=== PATIENT | female | born 1960 | race Caucasian/White ===

== ENCOUNTER → 2020-02-17 12:37 | Outpatient (BNVA) | payer OTHER, SELFPAY | PROVIDERS: PCP Internal Medicine; Referring Provider Internal Medicine; Visit Provider Internal Medicine Endocrinology, Diabetes & Metabolism | DX: Z13.89 Encounter for screening for other disorder (principal) | CPT/HCPCS: 99214 ==

== ENCOUNTER 2020-03-07 12:52 | Outpatient (REF) | payer OTHER, SELFPAY ==
--- NOTE | 2020-03-07 | MM_ITS ---
EXAMINATION: MM SCREENING DIGITAL BREAST TOMOSYNTHESIS, BILATERAL CLINICAL INFORMATION: Screening. Asymptomatic. The lifetime risk of breast cancer based on the Tyrer-Cuzick Model is 6%. COMPARISON: Mammography: 11/17/2018, 05/12/2018, 04/24/2018; outside exam 05/11/2015 ([facility]) TECHNIQUE: Digital breast tomosynthesis is performed in both the craniocaudal and mediolateral oblique views along with computer-aided detection (CAD). Synthesized 2D images are generated from the tomosynthesis. FINDINGS: There are scattered areas of fibroglandular density (ACR BI-RADS breast composition Category b). Parenchymal pattern is similar to prior studies. There is no developing density or interval mass or architectural abnormality. No abnormal calcifications. The axilla and skin contours are unremarkable. Small nodular asymmetry anterior inferior left breast on MLO view is stable. Nodular asymmetry posterior right breast and also mid upper outer right breast are stable. No significant changes from prior studies. MM/MM tomosynthesis screening BI IMPRESSION: No significant changes from prior studies. ASSESSMENT: BI-RADS 2: Benign RECOMMENDATION: Routine annual mammography screening. This patient's information was entered into a reminder system with a target due date for their next mammogram.
== END 2020-03-07 12:53 | disposition home or self-care (01) ==
LOC: HO.MAMMO 12:52
PROVIDERS: Visit Provider Internal Medicine
DX: Z12.31 Encounter for screening mammogram for malignant neoplasm of breast (principal)
CPT/HCPCS: 77063; 77067

== ENCOUNTER → 2020-08-17 08:16 | Outpatient (BNVA) | payer OTHER, SELFPAY | PROVIDERS: PCP Internal Medicine; Visit Provider Internal Medicine Endocrinology, Diabetes & Metabolism | DX: Z13.89 Encounter for screening for other disorder (principal) | CPT/HCPCS: Q3014 ==

== ENCOUNTER 2020-09-05 12:04 | Outpatient (REF) | payer OTHER, SELFPAY ==
[2020-09-05 14:20] LABS: Estimated Average Glucose 117 mg/dL; Hemoglobin A1c % 5.7 %
[2020-09-05 14:47] LABS: Alanine Aminotransferase 17 U/L (0-31); Albumin Level 4.3 g/dL (3.5-5.0); Alkaline Phosphatase 44 U/L (39-117); Anion Gap 15 (12-20); Aspartate Amino Transferase 14 U/L (5-31); Bilirubin Total 0.4 mg/dL (0.0-1.0); Blood Urea Nitrogen 17 mg/dL (9-16); Calcium 9.8 mg/dL (8.4-10.2); Carbon Dioxide 24 mmol/L (22-29); Chloride 104 mmol/L (96-108); Cholesterol 114 mg/dL; Estimated Glomerular Filt Rate > 60; Glucose Fasting 113 mg/dL (60-99); HDL Cholesterol 42 mg/dL; LDL Cholesterol Calculated 58 mg/dl; Potassium 4.9 mmol/L (3.3-5.1); Sodium 138 mmol/L (135-145); Total Protein 6.7 g/dL (6.5-8.0); Triglycerides 73 mg/dL
[2020-09-05 14:58] LABS: Creatinine Urine 41.74 mg/dL; Microalbumin Urine < 5.0 mg/L
[2020-09-05 15:00] LABS: Free T4 (Free Thyroxine) 0.95 ng/dL (0.71-1.85); Thyroid Stimulating Hormone 2.35 uIU/mL (0.32-4.0)
[2020-09-05 15:06] LABS: Vitamin B12 366 pg/mL (200-900)
[2020-09-06 08:07] LABS: LDL Cholesterol Direct 52 mg/dL (<100)
== END 2020-09-05 12:05 | disposition home or self-care (01) ==
LOC: HO.10HDL 12:04
PROVIDERS: Visit Provider Internal Medicine Endocrinology, Diabetes & Metabolism
DX: E11.9 Type 2 diabetes mellitus without complications (principal)
CPT/HCPCS: 36415; 80053; 80061; 82043; 82607; 83036; 83721; 84439; 84443

== ENCOUNTER → 2020-12-07 09:31 | Outpatient (BNVA) | payer OTHER, SELFPAY | PROVIDERS: PCP Internal Medicine; Visit Provider Advanced Practice Midwife ==

== ENCOUNTER 2021-01-25 10:15 | Outpatient (REF) | payer OTHER, SELFPAY ==
[2021-01-25 14:26] LABS: Estimated Average Glucose 117 mg/dL; Hemoglobin A1c % 5.7 %
[2021-01-25 14:36] LABS: Alanine Aminotransferase 24 U/L (0-31); Albumin Level 4.2 g/dL (3.5-5.0); Alkaline Phosphatase 42 U/L (39-117); Anion Gap 16 (12-20); Aspartate Amino Transferase 16 U/L (5-31); Bilirubin Total 0.2 mg/dL (0.0-1.0); Blood Urea Nitrogen 15 mg/dL (9-16); Calcium 9.8 mg/dL (8.4-10.2); Carbon Dioxide 24 mmol/L (22-29); Chloride 105 mmol/L (96-108); Cholesterol 119 mg/dL; Estimated Glomerular Filt Rate > 60; Glucose Fasting 137 mg/dL (60-99); HDL Cholesterol 40 mg/dL; LDL Cholesterol Calculated 59 mg/dl; Potassium 4.9 mmol/L (3.3-5.1); Sodium 140 mmol/L (135-145); Total Protein 6.7 g/dL (6.5-8.0); Triglycerides 100 mg/dL
[2021-01-25 14:36] LABS: Creatinine Urine 72.44 mg/dL; Microalbum/Creatinine Ratio Ur 6.9 ug/mg cr
[2021-01-25 14:47] LABS: Free T4 (Free Thyroxine) 0.93 ng/dL (0.71-1.85); Thyroid Stimulating Hormone 2.77 uIU/mL (0.32-4.0)
[2021-01-25 14:57] LABS: Vitamin B12 352 pg/mL (200-900)
[2021-01-26 23:17] LABS: LDL Cholesterol Direct 66 mg/dL (<100)
== END 2021-01-25 10:16 | disposition home or self-care (01) ==
LOC: HO.10HDL 10:15
PROVIDERS: Visit Provider Internal Medicine Endocrinology, Diabetes & Metabolism
DX: E11.9 Type 2 diabetes mellitus without complications (principal)
CPT/HCPCS: 36415; 80053; 80061; 82043; 82607; 83036; 83721; 84439; 84443

== ENCOUNTER 2021-03-08 15:39 | Outpatient (REF) | payer OTHER, SELFPAY ==
--- NOTE | ~2021-03-08 | XR_ITS ---
EXAMINATION: XR LUMBOSACRAL SPINE CLINICAL INFORMATION: Dorsalgia. COMPARISON: Lumbar spine done on 01/30/2013. TECHNIQUE: Three views of the lumbosacral spine. FINDINGS: There are 5 nonrib-bearing lumbar vertebrae present. The anterior part of the L1 vertebral body shows slight decrease in height as compared to prior study dated 01/30/2013, consistent with subtle compression deformity, of indeterminate etiology and chronicity. The remainder of the lumbar vertebrae appear normal in height. The alignment is intact. Intervertebral disc heights are relatively well-maintained except for slight the right at T12-L1 and moderate decreased height at L5-S1. The posterior appendages are intact. The paraspinal soft tissues are unremarkable. XR/XR lumbar spine 2-3V IMPRESSION: 1. Subtle loss of height of the anterior part of L1 vertebral body, new since 01/30/2013, indeterminate etiology and chronicity. 2. No other significant interval change.
== END 2021-03-08 15:40 | disposition home or self-care (01) ==
LOC: HO.XRAY 15:39
PROVIDERS: PCP Internal Medicine; Visit Provider Nurse Practitioner Family
DX: M54.9 Dorsalgia, unspecified (principal)
CPT/HCPCS: 72100

== ENCOUNTER 2021-03-15 11:19 | Outpatient (REF) | payer OTHER, SELFPAY ==
--- NOTE | ~2021-03-15 | MM_ITS ---
EXAMINATION: MM SCREENING DIGITAL BREAST TOMOSYNTHESIS, BILATERAL CLINICAL INFORMATION: Screening. Asymptomatic. The lifetime risk of breast cancer based on the Tyrer-Cuzick Model is 5%. COMPARISON: Mammography: 03/07/2020, 11/17/2018, 05/12/2018, 04/24/2018 TECHNIQUE: Digital breast tomosynthesis is performed in both the craniocaudal and mediolateral oblique views along with computer-aided detection (CAD). Synthesized 2D images are generated from the tomosynthesis. FINDINGS: There are scattered areas of fibroglandular density (ACR BI-RADS breast composition Category b). There are scattered bilateral stable asymmetries. Nodular asymmetry posterior 12:30 o'clock right breast is stable. There is no significant mass or architectural abnormality or developing density. No interval abnormal calcifications. The skin contours and axilla are unremarkable. No significant changes. MM/MM tomosynthesis screening BI IMPRESSION: No significant changes from prior studies. ASSESSMENT: BI-RADS 1: Negative RECOMMENDATION: Routine annual mammography screening. This patient's information was entered into a reminder system with a target due date for their next mammogram.
== END 2021-03-15 11:20 | disposition home or self-care (01) ==
LOC: HO.MAMMO 11:19
PROVIDERS: Visit Provider Internal Medicine
DX: Z12.31 Encounter for screening mammogram for malignant neoplasm of breast (principal)
CPT/HCPCS: 77063; 77067

== ENCOUNTER 2021-04-05 13:55 | Outpatient (REF) | payer OTHER, SELFPAY ==
--- NOTE | ~2021-04-05 | MM_ITS ---
EXAMINATION: BONE DENSITOMETRY CLINICAL INDICATION: Encounter for screening for osteoporosis. COMPARISON: This is the patient's baseline examination. TECHNIQUE: Using a CyActive DXA System (software version: 13.1) manufactured by [employer], dual-energy x-ray absorptiometry was performed of the lumbar spine and left hip. The images are of good technical quality. Summary results are attached. FINDINGS: AP SPINE L1-L4: BMD 0.936 g/cm2, Z-score -1.3, T-score -2.0, osteopenia. LEFT FEMUR, NECK: BMD 0.757 g/cm2, Z-score -1.1, T-score -2.0, osteopenia. LEFT FEMUR, TOTAL: BMD 0.852 g/cm2, Z-score -0.7, T-score -1.2, osteopenia. IDENTIFIED RISK FACTORS: Low calcium intake, secondary osteoporosis, history of fracture (adult), anticonvulsants, menopause. HISTORY OF FRACTURE: Spine. MEDICATIONS: Vitamin D. MM/XR DEXA axial skeleton IMPRESSION: 1. DIAGNOSIS: Osteopenia based on the lowest T-score value of -2.0 in the femoral neck and lumbar spine applying World Health Organization criteria. 2. 10-YEAR FRACTURE RISK PREDICTION, FRAX: Major osteoporotic fracture (clinical spine, forearm, hip or shoulder) 16.5%. Hip fracture 2.3%. 3. Treatment Recommendations: NOF guidelines recommend consideration for treatment in postmenopausal women and men age 50 and older presenting with the following: -A hip or vertebral (clinical or morphometric) fracture. -T-score less than or equal to -2.5 at the femoral neck or spine after appropriate evaluation to exclude secondary causes. -Low bone mass at the hip or spine and a 10-year fracture probability by FRAX of greater than or equal to 3% for hip fracture or greater than or equal to 20% for major osteoporotic fracture based on the [place] adapted WHO algorithm. 4. Other Recommendations: All treatment decisions require clinical judgment and consideration of individual patient factors, including patient preferences, comorbidities, previous drug use, risk factors not captured in the FRAX model (e.g. frailty, falls, vitamin D deficiency, increased bone turnover, interval significant decline in bone density) and possible under or overestimation of fracture risk by FRAX. Additional medical evaluation for secondary cause of low bone mineral density may be appropriate. FUTURE SCAN RECOMMENDATION: People with diagnosed cases of osteoporosis or at high risk for fracture should have regular bone mineral density tests. For patients eligible for Medicare, routine testing is allowed once every 2 years. The testing frequency can be increased to one year for patients who have rapidly progressing disease, those who are receiving or discontinuing medical therapy to restore bone mass, or have additional risk factors.
== END 2021-04-05 13:56 | disposition home or self-care (01) ==
LOC: HO.MAMMO 13:55
PROVIDERS: PCP Internal Medicine; Visit Provider Nurse Practitioner Family
DX: Z13.820 Encounter for screening for osteoporosis (principal); E83.51 Hypocalcemia; Z78.0 Asymptomatic menopausal state; Z79.899 Other long term (current) drug therapy
CPT/HCPCS: 77080

== ENCOUNTER → 2021-06-16 09:17 | Outpatient (BNVA) | payer OTHER, SELFPAY | PROVIDERS: PCP Internal Medicine; Visit Provider Internal Medicine Endocrinology, Diabetes & Metabolism | DX: E11.9 Type 2 diabetes mellitus without complications (principal); Z79.4 Long term (current) use of insulin | CPT/HCPCS: 82947; 83036; 99212 ==

== ENCOUNTER → 2021-07-07 07:54 | Outpatient (BNVA) | payer OTHER, SELFPAY | PROVIDERS: PCP Internal Medicine; Visit Provider Registered Nurse Diabetes Educator | DX: E11.42 Type 2 diabetes mellitus with diabetic polyneuropathy (principal); Z71.89 Other specified counseling | CPT/HCPCS: 99211 ==

== ENCOUNTER → 2021-07-26 08:53 | Outpatient (BNVA) | payer OTHER, SELFPAY | PROVIDERS: PCP Internal Medicine; Visit Provider Registered Nurse Diabetes Educator | DX: E11.42 Type 2 diabetes mellitus with diabetic polyneuropathy (principal) | CPT/HCPCS: 99211 ==

== ENCOUNTER → 2021-09-15 09:59 | Outpatient (BNVA) | payer OTHER, SELFPAY | PROVIDERS: PCP Internal Medicine; Visit Provider Internal Medicine Endocrinology, Diabetes & Metabolism | DX: E11.9 Type 2 diabetes mellitus without complications (principal); Z79.4 Long term (current) use of insulin; Z79.84 Long term (current) use of oral hypoglycemic drugs | CPT/HCPCS: 82947; 83036; 99212 ==

== ENCOUNTER → 2022-03-16 09:50 | Outpatient (BNVA) | payer OTHER, SELFPAY | PROVIDERS: PCP Internal Medicine; Visit Provider Internal Medicine Endocrinology, Diabetes & Metabolism | DX: E11.9 Type 2 diabetes mellitus without complications (principal); Z79.4 Long term (current) use of insulin | CPT/HCPCS: 82947; 99212 ==

== ENCOUNTER 2022-03-21 11:35 | Outpatient (REF) | payer OTHER, SELFPAY ==
--- NOTE | ~2022-03-21 | MM_ITS ---
EXAMINATION: MM SCREENING DIGITAL BREAST TOMOSYNTHESIS, BILATERAL CLINICAL INFORMATION: Screening. Asymptomatic. Family history premenopausal breast cancer, daughter. The lifetime risk of breast cancer based on the Tyrer-Cuzick Model is 16%. COMPARISON: Mammography: 03/15/2021, 03/07/2020, 11/17/2018, 05/12/2018 TECHNIQUE: Digital breast tomosynthesis is performed in both the craniocaudal and mediolateral oblique views along with computer-aided detection (CAD). Synthesized 2D images are generated from the tomosynthesis. FINDINGS: There are scattered areas of fibroglandular density (ACR BI-RADS breast composition Category b). Right CC view has 0.5 cm asymmetric density mid outer breast 5.5 cm from nipple. No definite correlate on MLO view. Patient will be recalled for additional views. The remainder of the breasts are similar to prior studies. Again, there is stable nodularity posterior right breast just medial to midline there are no abnormal calcifications. The axilla and skin contours are unremarkable. MM/MM tomosynthesis screening BI IMPRESSION: Right: -Asymmetric density mid outer right breast on CC view, possibly summation artifact. Left: -No mammographic evidence of malignancy. ASSESSMENT: BI-RADS 0: Incomplete - Need Additional Imaging Evaluation RECOMMENDATION: 1. Additional views of the right breast (spot CC, rolled CC x2). 2. Targeted ultrasound if warranted after review of the additional views. 3. Radiology department staff will contact the patient for additional imaging. This patient's information was entered into a reminder system with a target due date for their next mammogram.
== END 2022-03-21 11:36 | disposition home or self-care (01) ==
LOC: HO.MAMMO 11:35
PROVIDERS: PCP Internal Medicine; Visit Provider Internal Medicine
DX: Z12.31 Encounter for screening mammogram for malignant neoplasm of breast (principal)
CPT/HCPCS: 77063; 77067

== ENCOUNTER 2022-04-02 13:09 | Outpatient (REF) | payer OTHER, SELFPAY ==
--- NOTE | ~2022-04-02 | MM_ITS ---
EXAMINATION: MM DIAGNOSTIC DIGITAL BREAST TOMOSYNTHESIS, RIGHT US DIAGNOSTIC ULTRASOUND BREAST, RIGHT CLINICAL INFORMATION: Recall from screening for asymmetric density mid outer right breast on CC view, suspect summation artifact. Family history breast cancer, daughter. COMPARISON: Mammography: 03/21/2022, 03/15/2021, 03/07/2020 TECHNIQUE: Digital breast tomosynthesis is performed. 2D images are generated from the tomosynthesis. The following views are obtained: Spot CC, rolled CC x2. Ultrasound right breast is targeted to the outer breast. Grayscale imaging and color Doppler are performed without and with harmonics. FINDINGS: There are scattered areas of fibroglandular density (ACR BI-RADS breast composition Category b). The additional views show no persistent asymmetric density in the area of recent concern. There is no architectural abnormality. Ultrasound outer right breast demonstrates simple cyst 0.5 cm mid 9:00 position. There is no solid mass or architectural abnormality or focal duct ectasia. Results are discussed with the patient at time of visit. MM/MM tomosynthesis added views R IMPRESSION: -Additional views show no persistent asymmetric density or architectural abnormality. -Small simple cyst 0.5 cm mid outer right breast on targeted ultrasound. No solid mass or architectural abnormality. ASSESSMENT: BI-RADS 2: Benign RECOMMENDATION: Routine annual mammography screening. This patient's information was entered into a reminder system with a target due date for their next mammogram.
== END 2022-04-02 13:10 | disposition home or self-care (01) ==
LOC: HO.MAMMO 13:09
PROVIDERS: PCP Internal Medicine; Visit Provider Internal Medicine
DX: R92.2 Inconclusive mammogram (principal)
CPT/HCPCS: 76642; 77061; 77065

== ENCOUNTER 2022-08-03 07:28 | Outpatient (REF) | payer OTHER, SELFPAY ==
[2022-08-03 08:29] LABS: Alanine Aminotransferase 11 U/L (0-31); Albumin Level 4.2 g/dL (3.5-5.0); Alkaline Phosphatase 43 U/L (39-117); Anion Gap 11 (12-20); Aspartate Amino Transferase 13 U/L (5-31); Bilirubin Total 0.3 mg/dL (0.0-1.0); Blood Urea Nitrogen 21 mg/dL (9-16); Calcium 10.1 mg/dL (8.4-10.2); Carbon Dioxide 31 mmol/L (22-29); Chloride 104 mmol/L (96-108); Cholesterol 103 mg/dL; Estimated Glomerular Filt Rate > 60; Glucose Fasting 100 mg/dL (60-99); HDL Cholesterol 36 mg/dL; LDL Cholesterol Calculated 59 mg/dl; Potassium 4.8 mmol/L (3.3-5.1); Sodium 141 mmol/L (135-145); Total Protein 6.3 g/dL (6.5-8.0); Triglycerides 41 mg/dL
[2022-08-03 08:53] LABS: Thyroid Stimulating Hormone 4.13 uIU/mL (0.32-4.0); Vitamin B12 351 pg/mL (200-900); Vitamin D 25-OH Total 91.2 ng/mL (>30)
== END 2022-08-03 07:29 | disposition home or self-care (01) ==
LOC: HO.LAB 07:28
PROVIDERS: PCP Internal Medicine; Visit Provider Internal Medicine
DX: E53.8 Deficiency of other specified B group vitamins (principal); E55.9 Vitamin D deficiency, unspecified; E06.3 Autoimmune thyroiditis; E11.9 Type 2 diabetes mellitus without complications; E78.5 Hyperlipidemia, unspecified
CPT/HCPCS: 36415; 80053; 80061; 82306; 82607; 82746; 84443

== ENCOUNTER 2022-11-07 09:21 | Outpatient (AMB) | payer OTHER, SELFPAY ==
--- NOTE | 2022-11-07 09:26 | MHC.PC.OV ---
Vital Signs 11/07/22 09:27 Height 5 ft 5 in Weight 147 lb BMI 24.5 BP 110/62 Blood Pressure Location Lt brachial Position Sitting Intake Visit Reasons: PE Intake Note: Patient here for a physical exam Radio News Anchor Required: No Accompanied by: Self / Same As Patient Allergies Victoza Allergy (Intermediate, Uncoded 11/07/22 09:38) nausea and vomiting Codeine Adverse Reaction (Intermediate, Uncoded 11/07/22 09:38) nausea Medication List - Last Reconciled 11/07/22 by Orin Can MD aripiprazole 5 mg PO DAILY ascorbic acid (vitamin C) 250 mg PO DAILY atomoxetine 40 mg PO QAM atorvastatin 20 mg PO DAILY 90 days blood sugar diagnostic As directed blood sugar diagnostic (FreeStyle Lite Strips) As directed 4 times a day blood sugar diagnostic (FreeStyle Lite Strips) As directed 4 times a day blood-glucose meter (FreeStyle Veteran Lite kit) As directed bupropion HCl mg PO bupropion HCl mg PO calcium carbonate (Oyster Shell Calcium) 500 mg PO DAILY 90 days cholecalciferol (vitamin D3) 50 mcg PO DAILY 90 days gabapentin 100 mg PO BEDTIME ibuprofen 800 mg PO Q8H PRN 30 days lancets As directed lisinopril 10 mg PO DAILY 90 days metformin ER 1,000 mg (2 x 500 mg) PO BID 90 days pen needle, diabetic (BD Ultra-Fine Nora Pen Needle) 1 ea subcut DAILY 90 days semaglutide (Ozempic) 0.5 mg (0.4 mL) subcut QWEEK Tobacco use date assessed: 06/28/22 Fall risk assessment: No Falls in past year Last assessed Fall Risk: 11/07/22 Dental Screening Dental Screen Date: 11/07/22 Did you have a dental visit in the last 12 months?: No Did you have a dental problem in the last 6 months where you did not have access to dental care?: No Was dental information given to patient?: Patient has dentist HPI HPI Comments History of Present Illness Details This is a 62-year-old female with mild recurrent major depression and diabetes mellitus type 2 that comes for her physical exam. Has never had a colonoscopy and has Cologuard at home but has not done it yet. Last bone density was March 2021 and next bone density will be March 2023. Last mammogram was March 2022. Last Pap smear was 2019 and was normal. Depression is follow by Psychiatry. A1c within goal. Last diabetic eye exam was few months ago with Dr. Barahona. No chest pain or shortness of breath. No acute complaints. [facility] Medical History (Updated 11/07/22 @ 09:55 by Orin Can MD) B12 deficiency Diabetes type 2, controlled Diabetic polyneuropathy associated with type 2 diabetes mellitus Diabetic retinopathy associated with type 2 diabetes mellitus Dyslipidemia Jaime's disease Hypertension shelter (current) use of insulin Mild recurrent major depression Surgical History Hx of section Family History Father No problems noted. Mother No problems noted. Daughter Breast cancer, Onset Age: 38 Social History Household Members: None Housing: Apartment Alcohol intake: never Patient Tobacco Use Status: Former Tobacco user Tobacco use type: Cigarette e-Cigarette/Vaping Use: Never Used Second Hand Smoke Exposure: No service: No Current occupational status: unemployed Cognitive needs: No Hearing needs: No Vision needs: No Questionnaire Thrive Questionnaire Date Thrive assessed: 06/28/22 KYA-7 AMB Questionnaire KYA-7 Date KYA - 7 assessed: 06/28/22 Source: Developed by Drs. Antwan Hunt, Melissa Xiong, Kevin Gutierrez and colleagues, with an educational romulo from [employer]. Review of Systems Const All systems reviewed & are unremarkable except as noted in HPI and below Eyes Reports no additional complaints, Denies change in vision and Denies other visual disturbances Card Denies chest pain at rest, Denies chest pain with activity, Denies edema, Denies irregular heart rhythm, Denies claudication, Denies dyspnea, Denies dyspnea on exertion, Denies orthopnea, Denies paroxysmal nocturnal dyspnea and Denies slow heart rate Resp Denies cough, Denies dyspnea and Denies dyspnea on exertion GI Denies abdominal pain, Denies change in bowel habits, Denies excessive flatus, Denies nausea and Denies vomiting Denies urinary incontinence, Denies urinary hesitancy and Denies urinary urgency Musc Denies abnormal gait, Denies atrophy, Denies deformity and Denies limited range of motion Skin/Breast Denies bleeding lesions, Denies changing lesions and Denies rash Neuro Denies abnormal gait and Denies lack of coordination Physical exam (Primary Care) Vital Signs: Last Vital Signs BP 110/62 11/07/22 09:27 BMI result Body Mass Index 24.5 Tobacco/Smoking Status: Tobacco use Status Tobacco use date assessed 06/28/22 06/28/22 13:53 Patient Tobacco Use Status Former Tobacco user 06/28/22 13:46 Tobacco use type Cigarette 06/28/22 13:46 e-Cigarette/Vaping Use Never Used 06/28/22 13:46 Thrive Assessment: Date of Thrive Assessment Date Thrive assessed 06/28/22 06/28/22 13:46 Const Orientation/consciousness: patient oriented x3 HENMT Head: Yes normal to inspection, Yes normocephalic and Yes atraumatic Ears: external ears normal Eyes General: appearance normal, both eyes and all related structures Eyelids: Yes eyelids normal Conjunctivae: conjunctivae normal Neck Neck: Yes normal visual inspection and Yes supple Resp Effort & Inspection: normal respiratory effort Auscultation: clear to auscultation bilaterally Cardio Jugular venous distension: no JVD Rate: regular rate Rhythm: regular rhythm Heart sounds: S1 normal heart sound present and S2 normal heart sound present GI Inspection: Yes normal to inspection Palpation (GI): Soft to palpation and nontender Auscultation: normal bowel sounds Skin General skin exam: no rashes or lesions noted Neuro General: patient oriented x3 and no focal motor deficits Extrem General: Yes full ROM Psych Appearance: grossly normal Results AMB Hemoglobin A1c AMB Hemoglobin A1c 4.7 % Last Edit by FRITZ Gonsales on 11/07/22 09:40 Assessment and Plan Assessment & Plan (1) Physical exam: Code(s): Z00.00 - Encounter for general adult medical examination without abnormal findings Plan: Repeat in a year (2) Mild recurrent major depression: Code(s): F33.0 - Major depressive disorder, recurrent, mild Plan: Continue Abilify. Follow-up with psychiatry. (3) Diabetes type 2, controlled: Code(s): E11.9 - Type 2 diabetes mellitus without complications Qualifiers: Diabetes mellitus termite control servicer insulin use: with prison use Diabetes mellitus complication status: without complication Qualified Code(s): E11.9 - Type 2 diabetes mellitus without complications; Z79.4 - director long term care (current) use of insulin Plan: Continue metformin and Ozempic. A1c goal is equal or less than 7%. Orders: Orders Vitamin B12 and Folate Today E53.8 - Deficiency of other specified B group vitamins Comprehensive [place]. Panel Fast Today E11.9 - Type 2 diabetes mellitus without complications, Z79.4 - director long term care (current) use of insulin Lipid Panel Today E78.5 - Hyperlipidemia, unspecified Free T4 (Free Thyroxine) Today E06.3 - Autoimmune thyroiditis Thyroid Stimulating Hormone Today E06.3 - Autoimmune thyroiditis Vitamin D 25-OH Total Today E55.9 - Vitamin D deficiency, unspecified Microalbumin, Random (w Creat) Today E11.9 - Type 2 diabetes mellitus without complications XR DEXA axial skeleton 5 Months N95.9 - Unspecified menopausal and perimenopausal disorder AMB Hemoglobin A1c Today E11.9 - Type 2 diabetes mellitus without complications Medications: New carbamide peroxide 6.5% (Murine Ear) 10 drps otic (ear) left DAILY 4 days 15 mL 0RF Coding Level of Care Code Est Pt Prev Care 40-64y(38846) Diagnoses Physical exam Z00.00 Mild recurrent major depression F33.0 Diabetes type 2, controlled E11.9; Z79.4 Diabetes mellitus termite control servicer insulin use: with termite control servicer use Diabetes mellitus complication status: without complication Time Spent (min) 31
[2022-11-07 09:27] VITALS: BP 110/62; BMI 24.5
== END 2022-11-07 09:52 | disposition home or self-care (01) ==
PROVIDERS: Visit Provider Internal Medicine
DX: Z00.00 Encounter for general adult medical examination without abnormal findings (principal); F33.0 Major depressive disorder, recurrent, mild; E11.9 Type 2 diabetes mellitus without complications; Z79.4 Long term (current) use of insulin
CPT/HCPCS: 83036; 99396

== ENCOUNTER 2022-12-21 12:57 | Outpatient (AMB) | payer OTHER, SELFPAY ==
--- NOTE | 2022-12-21 13:05 | A.OFFVIS_ITS ---
Intake Vital Signs 12/21/22 13:10 Height 5 ft 5 in Weight 148 lb BMI 24.6 BP 102/60 Intake Visit Reasons: Annual Intake Note: no concerns The patient agreed to use of a medical economics consultant during this encounter. Scribed for JAVON Garcia by Trish Peck medical economics consultant, on 12/21/2022 at 1:20 pm EST Vulcanizing Machine Operator Required: No Information Interpreted: non-clinical & clinical Brand Advocate: Brand Advocate Present (Britta Jarek HU) Accompanied by: Self / Same As Patient Allergies Victoza Allergy (Intermediate, Uncoded 12/21/22 13:11) nausea and vomiting Codeine Adverse Reaction (Intermediate, Uncoded 12/21/22 13:11) nausea Post menopausal: Yes HPI HPI Comments History of Present Illness Details She is a postmenopausal woman presenting for annual exam. Doing well with no home builder concerns. She attempts to eat a healthy diet including Calcium and Vitamin D. Not currently sexually active. Denies vaginal itching and irritation. Last pap smear 2019. Last mammogram 04/02/22. Not UTD on colonoscopy, she has the order to schedule. [facility] Medical History B12 deficiency Diabetes type 2, controlled Diabetic polyneuropathy associated with type 2 diabetes mellitus Diabetic retinopathy associated with type 2 diabetes mellitus Dyslipidemia Jaime's disease Hypertension intermediate (current) use of insulin Mild recurrent major depression Surgical History Hx of section Family History Father No problems noted. Mother No problems noted. Daughter Breast cancer, Onset Age: 38 Social History Household Members: None Housing: Apartment Alcohol intake: never Patient Tobacco Use Status: Former Tobacco user Tobacco use type: Cigarette e-Cigarette/Vaping Use: Never Used Second Hand Smoke Exposure: No service: No Current occupational status: unemployed Cognitive needs: No Hearing needs: No Vision needs: No Female Reproductive History Menstrual Total pregnancies: 2 Full term: 2 Number of Living Children: 2 Date of last pap smear: 12/04/19 Date of Mammogram: 04/02/22 Review of Systems Const All systems reviewed & are unremarkable except as noted in HPI and below Physical Exam Vital Signs: Last Vital Signs BP 102/60 12/21/22 13:10 BMI result Body Mass Index 24.6 Const General: cooperative, healthy appearing, no acute distress, well developed and alert Orientation/consciousness: patient oriented x3 HEENT Head: Yes normal to inspection Eyes General: appearance normal, both eyes and all related structures Neck Neck: Yes normal visual inspection Thyroid: Thyroid normal Chest Chest palpation & inspection: normal inspection of the chest Breast/axilla inspection: normal inspection of the breasts (no puckering, dimpling, peau de orange, retraction, discharge, masses) Breast/axilla palpation: normal palpation of the breasts Resp Effort & Inspection: normal respiratory effort GI Inspection: Yes normal to inspection Palpation (GI): Soft to palpation Rectal Exam - Female: deferred General: Yes bladder normal to palpation External Female Exam: normal external appearance and normal appearance of the urethra Speculum Exam - Vagina: normal appearance of the vagina, normal palpation, normal vaginal discharge and vagina atrophic Speculum Exam - Cervix: normal appearance of the cervix and normal palpation Bimanual exam- vagina & uterus: normal bimanual exam, normal palpation, uterine size normal, bladder normal to palpation and normal palpation Bimanual Exam- Adnexa, other: normal adnexae and no masses Skin General skin exam: no rashes or lesions noted Neuro General: patient oriented x3 Cognition (Neuro): normal cognition Extrem General: Yes normal to inspection Psych Attitude: cooperative Thought process: Normal thought process present Assessment & Plan Assessment & Plan (1) Encounter for well woman exam: Code(s): Z01.419 - Encounter for gynecological examination (general) (routine) without abnormal findings Plan: Discussed: Current recommendations for pap smears per ASCCP guidelines. Breast awareness and periodic self breast exams. Encouraged yearly mammograms. Maintaining a healthy lifestyle including a well balanced diet including Calcium and Vitamin D and routine exercise. Contact office with any PMB. All of her questions and concerns were addressed to the best of my ability. RTO in one year for AG. Coding Level of Care Code Est Pt Prev Care 40-64y(20468) Diagnoses Encounter for well woman exam Z01.419
[2022-12-21 13:10] VITALS: BP 102/60; BMI 24.6
== END 2022-12-21 13:32 | disposition home or self-care (01) ==
LOC: HO.HWS 12:58
PROVIDERS: PCP Internal Medicine; Visit Provider Advanced Practice Midwife
DX: Z01.419 Encounter for gynecological examination (general) (routine) without abnormal findings (principal)
CPT/HCPCS: 99396

== ENCOUNTER → 2022-12-21 12:57 | Outpatient (BNVA) | payer OTHER, SELFPAY | PROVIDERS: PCP Internal Medicine; Visit Provider Advanced Practice Midwife ==

== ENCOUNTER → 2023-03-26 15:00 | Outpatient (BNV) | payer OTHER, SELFPAY | PROVIDERS: PCP Internal Medicine; Visit Provider Radiology Diagnostic Radiology | DX: Z12.31 Encounter for screening mammogram for malignant neoplasm of breast (principal) | CPT/HCPCS: 77063; 77067 ==

== ENCOUNTER 2023-03-26 15:26 | Outpatient (REF) | payer OTHER, SELFPAY | END 2023-03-26 15:27 | disposition home or self-care (01) | LOC: HO.MAMMO 15:26 | PROVIDERS: PCP Internal Medicine; Visit Provider Internal Medicine | DX: Z12.31 Encounter for screening mammogram for malignant neoplasm of breast (principal) | CPT/HCPCS: 77063; 77067 ==

== ENCOUNTER 2023-04-09 09:43 | Outpatient (REF) | payer OTHER, SELFPAY ==
--- NOTE | ~2023-04-09 | MM_ITS ---
EXAMINATION: BONE DENSITOMETRY CLINICAL INDICATION: Menopause. COMPARISON: Baseline BD dated 04/05/2021. TECHNIQUE: Using a [employer] DXA System (software version: 13.1) manufactured by [employer], dual-energy x-ray absorptiometry was performed of the lumbar spine and left hip. The images are of good technical quality. Summary results are attached. FINDINGS: LEFT FEMUR, NECK: Current: BMD 0.755 g/cm2, Z-score -0.6, T-score -2.0, osteopenia. Baseline: BMD 0.757 g/cm2. LEFT FEMUR, TOTAL: Current: BMD 0.781 g/cm2, Z-score -0.6, T-score -1.8, osteopenia, 8.3% decrease from baseline (<5% change is not significant). Baseline: BMD 0.852 g/cm2. AP SPINE L1-L4: Current: BMD 0.868 g/cm2, Z-score -1.0, T-score -2.6, osteoporosis, 7.3% decrease from baseline (<5% change is not significant). Baseline: BMD 0.936 g/cm2. IDENTIFIED RISK FACTORS: Menopause, history of fracture (adult). HISTORY OF FRACTURE: Spine. MEDICATIONS: Calcium, vitamin D. MM/XR DEXA axial skeleton IMPRESSION: 1. DIAGNOSIS: Severe osteoporosis based on the lowest T-score value of -2.6 in the lumbar spine and history of fracture of spine applying World Health Organization criteria. 2. 10-YEAR FRACTURE RISK PREDICTION, FRAX: According to the guidelines, FRAX calculation should only be performed on patients in the osteopenia bone density category. Therefore, FRAX was not performed on this patient. 3. Treatment Recommendations: NOF guidelines recommend consideration for treatment in postmenopausal women and men age 50 and older presenting with the following: -A hip or vertebral (clinical or morphometric) fracture. -T-score less than or equal to -2.5 at the femoral neck or spine after appropriate evaluation to exclude secondary causes. -Low bone mass at the hip or spine and a 10-year fracture probability by FRAX of greater than or equal to 3% for hip fracture or greater than or equal to 20% for major osteoporotic fracture based on the [place] adapted WHO algorithm. 4. Other Recommendations: All treatment decisions require clinical judgment and consideration of individual patient factors, including patient preferences, comorbidities, previous drug use, risk factors not captured in the FRAX model (e.g. frailty, falls, vitamin D deficiency, increased bone turnover, interval significant decline in bone density) and possible under or overestimation of fracture risk by FRAX. Additional medical evaluation for secondary cause of low bone mineral density may be appropriate. FUTURE SCAN RECOMMENDATION: People with diagnosed cases of osteoporosis or at high risk for fracture should have regular bone mineral density tests. For patients eligible for Medicare, routine testing is allowed once every 2 years. The testing frequency can be increased to one year for patients who have rapidly progressing disease, those who are receiving or discontinuing medical therapy to restore bone mass, or have additional risk factors.
== END 2023-04-09 09:44 | disposition home or self-care (01) ==
LOC: HO.MAMMO 09:43
PROVIDERS: PCP Internal Medicine; Visit Provider Internal Medicine
DX: Z13.820 Encounter for screening for osteoporosis (principal); Z78.0 Asymptomatic menopausal state
CPT/HCPCS: 77080

== ENCOUNTER 2023-04-09 11:01 | Outpatient (AMB) | payer OTHER, SELFPAY ==
--- NOTE | 2023-04-09 11:04 | A.OFFPC_ITS ---
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 Required: No Accompanied by: Self / Same As Patient Allergies Victoza Allergy (Intermediate, Uncoded 04/09/23 11:16) nausea and vomiting Codeine Adverse Reaction (Intermediate, Uncoded 04/09/23 11:16) nausea Medication List - Last Reconciled 04/09/23 by Orin Can MD aripiprazole 5 mg PO DAILY ascorbic acid (vitamin C) 250 mg PO DAILY atomoxetine 40 mg PO QAM atorvastatin 20 mg PO DAILY 90 days blood sugar diagnostic As directed blood sugar diagnostic (FreeStyle Lite Strips) As directed 4 times a day blood sugar diagnostic (FreeStyle Lite Strips) As directed 4 times a day blood-glucose meter (FreeStyle [place] Lite kit) As directed bupropion HCl mg PO bupropion HCl mg PO calcium carbonate (Oyster Shell Calcium) 500 mg PO DAILY 90 days cholecalciferol (vitamin D3) 50 mcg PO DAILY 90 days gabapentin 100 mg PO BEDTIME ibuprofen 800 mg PO Q8H PRN 30 days lancets As directed lisinopril 10 mg PO DAILY 90 days metformin ER 1,000 mg (2 x 500 mg) PO BID 90 days pen needle, diabetic (BD Ultra-Fine Nora Pen Needle) 1 ea subcut DAILY 90 days semaglutide (Ozempic) 0.25 mg (0.368 mL) subcut QWEEK 90 days Tobacco use date assessed: 06/28/22 Fall risk assessment: No Falls in past year Last assessed Fall Risk: 04/09/23 HPI HPI Comments History of Present Illness Details This is a 62-year-old female with diabetes mellitus type 2, hypertension, hyperlipidemia and mild recurrent major depression that comes today for follow-up on conditions. A1c within goal. Blood pressure stable. Last LDL was within goal. Depression has been well controlled with medication and is follow by Psychiatry. No chest pain or shortness of breath. 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 Mother No problems noted. Daughter Breast cancer, Onset Age: 38 Social History Household Members: None Housing: Apartment Alcohol intake: never Patient Tobacco Use Status: Former Tobacco user Tobacco use type: Cigarette e-Cigarette/Vaping Use: Never Used Second Hand Smoke Exposure: No service: No Current occupational status: unemployed Cognitive needs: No Hearing needs: No Vision needs: No Questionnaire Thrive Questionnaire Date Thrive assessed: 06/28/22 KYA-7 AMB Questionnaire KYA-7 Date KYA - 7 assessed: 06/28/22 Source: Developed by Drs. Antwan Hunt, Melissa Xiong, Kevin Gutierrez and colleagues, with an educational romulo from [employer]. Review of Systems Const All systems reviewed & are unremarkable except as noted in HPI and below Eyes Reports no additional complaints, Denies change in vision and Denies other visual disturbances Card Denies chest pain at rest, Denies chest pain with activity, Denies edema, Denies irregular heart rhythm, Denies claudication, Denies dyspnea, Denies dyspnea on exertion, Denies orthopnea, Denies paroxysmal nocturnal dyspnea and Denies slow heart rate Resp Denies cough, Denies dyspnea and Denies dyspnea on exertion GI Denies abdominal pain, Denies change in bowel habits, Denies excessive flatus, Denies nausea and Denies vomiting Denies urinary incontinence, Denies urinary hesitancy and Denies urinary urgency Musc Denies abnormal gait, Denies atrophy, Denies deformity and Denies limited range of motion Skin/Breast Denies bleeding lesions, Denies changing lesions and Denies rash Neuro Denies abnormal gait and Denies lack of coordination Physical exam (Primary Care) Vital Signs: Last Vital Signs BP 106/64 04/09/23 11:11 BMI result Body Mass Index 24.3 Tobacco/Smoking Status: Tobacco use Status Tobacco use date assessed 06/28/22 04/09/23 11:06 Patient Tobacco Use Status Former Tobacco user 04/09/23 11:06 Tobacco use type Cigarette 04/09/23 11:06 e-Cigarette/Vaping Use Never Used 04/09/23 11:06 Thrive Assessment: Date of Thrive Assessment Date Thrive assessed 06/28/22 04/09/23 11:06 Eyes General: appearance normal, both eyes and all related structures Eyelids: Yes eyelids normal Conjunctivae: conjunctivae normal Neck Neck: Yes normal visual inspection and Yes supple Resp Effort & Inspection: normal respiratory effort Auscultation: clear to auscultation bilaterally Cardio Jugular venous distension: no JVD Rate: regular rate Rhythm: regular rhythm Heart sounds: S1 normal heart sound present and S2 normal heart sound present Extrem General: Yes full ROM Results AMB Hemoglobin A1c AMB Hemoglobin A1c 5.6 % Last Edit by FRITZ Gonsales on 04/09/23 11:1 6 Assessment and Plan Assessment & Plan (1) Diabetes type 2, controlled: Code(s): E11.9 - Type 2 diabetes mellitus without complications Qualifiers: Diabetes mellitus detention insulin use: with dedicated 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 A1c goal is equal or less than 7%. (2) Hypertension: Code(s): I10 - Essential (primary) hypertension Qualifiers: Hypertension type: essential hypertension Qualified Code(s): I10 - Essential (primary) hypertension Plan: Continue lisinopril. Blood pressure goal is equal or less than 130/80 P (3) Dyslipidemia: Code(s): E78.5 - Hyperlipidemia, unspecified Plan: Continue statins. LDL goal is less than 70. (4) Mild recurrent major depression: Code(s): F33.0 - Major depressive disorder, recurrent, mild Plan: Continue Abilify. Follow-up with psychiatry. Orders: Orders Thyroglobulin Antibodies 7 Months R79.89 - Other specified abnormal findings of blood chemistry Lipid Panel 7 Months E78.5 - Hyperlipidemia, unspecified Vitamin B12 and Folate 7 Months E53.8 - Deficiency of other specified B group vitamins Vitamin D 25-OH Total 7 Months E55.9 - Vitamin D deficiency, unspecified Comprehensive [place]. Panel Fast 7 Months E11.9 - Type 2 diabetes mellitus without complications, Z79.4 - correction (current) use of insulin AMB Hemoglobin A1c Today Z13.9 - Encounter for screening, unspecified Thyroid Stimulating Hormone 7 Months R79.89 - Other specified abnormal findings of blood chemistry Free T4 (Free Thyroxine) 7 Months R79.89 - Other specified abnormal findings of blood chemistry Thyroid Peroxidase Antibodies 7 Months R7.89 - Other specified abnormal findings of blood chemistry Microalbumin, Random (w Creat) 7 Months E11.9 - Type 2 diabetes mellitus without complications Coding Level of Care Code Est Pt Level 4 (08050) Diagnoses Controlled type 2 diabetes mellitus without complication, with long-term current use of insulin E11.9; Z79.4 Diabetes mellitus dedicated intermodal truck driver insulin use: with detention use Diabetes mellitus complication status: without complication Essential hypertension I10 Hypertension type: essential hypertension Dyslipidemia E78.5 Mild recurrent major depression F33.0 Time Spent (min) 23
[2023-04-09 11:11] VITALS: BP 106/64; BMI 24.3
== END 2023-04-09 11:24 | disposition home or self-care (01) ==
PROVIDERS: PCP Internal Medicine; Visit Provider Internal Medicine
DX: E11.69 Type 2 diabetes mellitus with other specified complication (principal); Z79.4 Long term (current) use of insulin; F33.0 Major depressive disorder, recurrent, mild; I10 Essential (primary) hypertension; E78.5 Hyperlipidemia, unspecified
CPT/HCPCS: 83036; 99214

== ENCOUNTER 2023-06-20 15:31 | Outpatient (AMB) | payer OTHER, SELFPAY ==
--- NOTE | 2023-06-20 15:36 | A.OFFVIS_ITS ---
Intake Vital Signs 06/20/23 15:38 Height 5 ft 5 in Weight 149 lb 11.102 oz BMI 24.9 BP 92/54 L Blood Pressure Location Rt brachial Position Sitting Pulse 95 Pulse Source Pulse Oximeter Temp 97.6 F Temp Source Skin Pulse Oximetry (%) 98 Oxygen Delivery Method Room Air Intake Visit Reasons: osteoporosis Intake Note: New patient, internally referred, presents today for osteoporosis. 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 Treadwell is a 62-year-old female presents today for management of osteoporosis. She i. She has never had treatment for osteoporosis. Patient denies smoking, acid reflux, malabsorption syndrome, thyroid concerns, Mrs. Treadwell 62-year-old female who was referred by PCP for the treatment of Osteoporosis, highest T score 2.6 in Hip and Spine. She denies prior treatment and currently takes Vitamin D 50 mcg and calcium 500 mg daily supplements. Her medical history is significant for diabetes mellitus type 2, hypertension, pure hypercholesterolemia, hypothyroidism and mild major depression. Her risk factor s for Osteoporosis includes being a postmenopause, a former smoker. She does not use PPIs for GERD, or receives steroid spinal injections or uses steroids for Asthma. She is fairly inactive, and denies excessive consumption of alcohol. Patient denies history of eating disorder and other concerns for mal- absorption. She denies inflammatory arthritis. She reports that her father has severe osteoporosis and has multiple fractures to his spine. The patient also had fracture to her spine 2 years ago PCP visit 04/09/2023: This is a 62-year-old female with diabetes mellitus type 2, hypertension, hyperlipidemia and mild recurrent major depression that comes today for follow- up on conditions. A1c within goal. Blood pressure stable. Last LDL was within goal. Depression has been well controlled with medication and is follow by Psychiatry. No chest pain or shortness of breath. [facility] Medical History B12 deficiency Diabetes type 2, controlled Diabetic polyneuropathy associated with type 2 diabetes mellitus Diabetic retinopathy associated with type 2 diabetes mellitus Dyslipidemia Jaime's disease Hypertension [facility] (current) use of insulin Mild recurrent major depression Surgical History Hx of section Family History (Updated 06/20/23 @ 15:41 by FRITZ Jones) Father Raynaud's syndrome without gangrene Mother No problems noted. Daughter Breast cancer, Onset Age: 38 Social History Household Members: None Housing: Apartment Alcohol intake: never Patient Tobacco Use Status: Former Tobacco user Tobacco use type: Cigarette e-Cigarette/Vaping Use: Never Used Second Hand Smoke Exposure: No service: No Current occupational status: unemployed Cognitive needs: No Hearing needs: No Vision needs: No Physical Exam Vital Signs: Last Vital Signs Temp 97.6 F 06/20/23 15:38 Pulse 95 06/20/23 15:38 BP 92/54 L 06/20/23 15:38 Pulse Ox 98 06/20/23 15:38 Oxygen Delivery Method Room Air 06/20/23 15:38 BMI result Body Mass Index 24.9 Vital signs reviewed. Constitutional: Non-toxic appearing. No acute distress. Well-developed and well-nourished. HEENT: Normocephalic and atraumatic. External auditory canals without erythema or edema bilaterally. moist mucous membranes. No pharyngeal erythema or exudates. Skin: Warm and dry. No rashes or lesions noted. Neck: Full and painless range of motion. No cervical lymphadenopathy. Cardio: Regular rate and rhythm. No murmurs, gallops, or rubs. No lower extremity edema. No JVD. Pulmonary: No respiratory distress. No accessory muscle usage. Gastrointestinal: Soft, nontender, and nondistended in all 4 quadrants. Normoactive bowel sounds in all 4 quadrants. Genitourinary: No CVA tenderness. Musculoskeletal: Normal range of motion in joints throughout the body. No deformity or other signs of injury. Neuro: Alert and oriented x4. Cranial nerves 2-12 grossly intact. No focal deficits appreciated. Results Reviewed Results Reviewed: EXAMINATION: XR LUMBOSACRAL SPINE CLINICAL INFORMATION: Dorsalgia. COMPARISON: Lumbar spine done on 01/30/2013. TECHNIQUE: Three views of the lumbosacral spine. FINDINGS: There are 5 nonrib-bearing lumbar vertebrae present. The anterior part of the L1 vertebral body shows slight decrease in height as compared to prior study dated 01/30/2013, consistent with subtle compression deformity, of indeterminate etiology and chronicity. The remainder of the lumbar vertebrae appear normal in height. The alignment is intact. Intervertebral disc heights are relatively well-maintained except for slight the right at T12-L1 and moderate decreased height at L5-S1. The posterior appendages are intact. The paraspinal soft tissues are unremarkable. XR/XR lumbar spine 2-3V IMPRESSION: 1. Subtle loss of height of the anterior part of L1 vertebral body, new since 01/30/2013, indeterminate etiology and chronicity. 2. No other significant interval change. Patient: Khushbu Treadwell MR#: [id number] : 1960 Acct:[id number] Age/Sex: 62 / F ADM Date: 04/09/23 cc: Orin Villagomez MD~ EXAMINATION: BONE DENSITOMETRY CLINICAL INDICATION: Menopause. COMPARISON: Baseline BD dated 04/05/2021. TECHNIQUE: Using a [employer] DXA System (software version: 13.1) manufactured by [employer], dual-energy x-ray absorptiometry was performed of the lumbar spine and left hip. The images are of good technical quality. Summary results are attached. FINDINGS: LEFT FEMUR, NECK: Current: BMD 0.755 g/cm2, Z-score -0.6, T-score -2.0, osteopenia. Baseline: BMD 0.757 g/cm2. LEFT FEMUR, TOTAL: Current: BMD 0.781 g/cm2, Z-score -0.6, T-score -1.8, osteopenia, 8.3% decrease from baseline (<5% change is not significant). Baseline: BMD 0.852 g/cm2. AP SPINE L1-L4: Current: BMD 0.868 g/cm2, Z-score -1.0, T-score -2.6, osteoporosis, 7.3% decrease from baseline (<5% change is not significant). Baseline: BMD 0.936 g/cm2. IDENTIFIED RISK FACTORS: Menopause, history of fracture (adult). HISTORY OF FRACTURE: Spine. MEDICATIONS: Calcium, vitamin D. Assessment & Plan Assessment & Plan (1) Osteoporosis: Code(s): M81.0 - Age-related osteoporosis without current pathological fracture Qualifiers: Osteoporosis type: age-related Presence of current pathological fracture: without current pathological fracture Qualified Code(s): M81.0 - Age- related osteoporosis without current pathological fracture (2) TSH elevation: Code(s): R79.89 - Other specified abnormal findings of blood chemistry Plan #Osteoporosis/TSH elevation: Mrs. Treadwell is here for management of her osteoporosis. Bone density 04/17/2023 shows lowest T-score-2.6. There are lab values that show elevated TSH but none that shows that has been resolved. The patient reports that her thyroid is being monitored by her primary care. She says she was was started on levothyroxine and then based on a a follow-up lab she was taken off the medication. She also reports that she had a spine fracture 2 years ago. I do not have current evidence of that. I do see a lumbar x-ray that reports disc height loss but none that corroborates spine fracture. I will treat the osteoporosis with Prolia to be given Q6 months. I will obtain labs to assess suitability to start medication. I discussed with patient the possible side effects of Prolia to include but not limited to arthralgias and flu-like symptoms which should not last more than 2 weeks. I recommend that if needed she can take Tylenol or ibuprofen. I also discussed that it is advisable that there should be no deep dental work 3 months before or 3 months after treatment. Patient denies any recent dental work. Patient notes to call the office if she has any questions. 6 months f/u Orders: Orders Collagen Cross-linked,24U Today M81.0 - Age-related osteoporosis without current pathological fracture Comprehensive Met. Panel Today M81.0 - Age-related osteoporosis without current pathological fracture Alkaline Phosphatase Bone Today M81.0 - Age-related osteoporosis without current pathological fracture Collagen Crosslinks NTX Today M81.0 - Age-related osteoporosis without current pathological fracture Collagen Type I C-Telopeptide Today M81.0 - Age-related osteoporosis without current pathological fracture Coding Level of Care Code New Pt Level 3 (29363) Diagnoses Age-related osteoporosis without current pathological fracture M81.0 Osteoporosis type: age-related Presence of current pathological fracture: without current pathological fracture TSH elevation R79.89
[2023-06-20 15:38] VITALS: BP 92/54; PULSE 95; TEMP 36.4; O2SAT 98; BMI 24.9
== END 2023-06-20 16:13 | disposition home or self-care (01) ==
PROVIDERS: PCP Internal Medicine; Visit Provider Nurse Practitioner Family
DX: M81.0 Age-related osteoporosis without current pathological fracture (principal); R79.89 Other specified abnormal findings of blood chemistry
CPT/HCPCS: 99203

== ENCOUNTER → 2023-06-20 15:31 | Outpatient (BNVA) | payer OTHER, SELFPAY | PROVIDERS: PCP Internal Medicine; Visit Provider Nurse Practitioner Family | DX: M81.0 Age-related osteoporosis without current pathological fracture (principal); R79.89 Other specified abnormal findings of blood chemistry | CPT/HCPCS: 99202 ==

== ENCOUNTER 2023-06-27 07:35 | Outpatient (REF) | payer OTHER, SELFPAY ==
[2023-06-27 09:37] LABS: Anion Gap 11 (12-20); Blood Urea Nitrogen 22 mg/dL (9-16); Calcium 9.7 mg/dL (8.4-10.2); Carbon Dioxide 29 mmol/L (22-29); Chloride 105 mmol/L (96-108); Estimated Glomerular Filt Rate > 60; Glucose Fasting 76 mg/dL (60-99); Potassium 4.5 mmol/L (3.3-5.1); Sodium 140 mmol/L (135-145)
[2023-06-27 09:38] LABS: Alanine Aminotransferase 12 U/L (0-31); Albumin Level 3.9 g/dL (3.5-5.0); Alkaline Phosphatase 45 U/L (39-117); Aspartate Amino Transferase 12 U/L (5-31); Bilirubin Total 0.2 mg/dL (0.0-1.0); Cholesterol 123 mg/dL (<200); HDL Cholesterol 43 mg/dL (>40); LDL Cholesterol Calculated 69 mg/dL (<100); Total Protein 6.5 g/dL (6.5-8.0); Triglycerides 56 mg/dL (<150)
[2023-06-27 09:44] LABS: Creatinine Urine 89.66 mg/dL; Microalbum/Creatinine Ratio Ur 6.6 ug/mg cr (<30)
[2023-06-27 09:57] LABS: Free T4 (Free Thyroxine) 0.94 ng/dL (0.71-1.85); Thyroid Stimulating Hormone 5.19 uIU/mL (0.32-4.0); Vitamin D 25-OH Total 65.6 ng/mL (>30)
[2023-06-27 09:59] LABS: Vitamin B12 261 pg/mL (200-900)
== END 2023-06-27 07:36 | disposition home or self-care (01) ==
LOC: HO.LAB 07:35
PROVIDERS: Absent Provider Nurse Practitioner Family; PCP Internal Medicine; Visit Provider Internal Medicine
DX: E55.9 Vitamin D deficiency, unspecified (principal); E53.8 Deficiency of other specified B group vitamins; E06.3 Autoimmune thyroiditis; E11.9 Type 2 diabetes mellitus without complications; E78.5 Hyperlipidemia, unspecified; Z79.4 Long term (current) use of insulin
CPT/HCPCS: 36415; 80053; 80061; 82043; 82306; 82570; 82607; 82746; 84439; 84443

== ENCOUNTER 2023-07-04 06:56 | Outpatient (REF) | payer OTHER, SELFPAY ==
[2023-07-04 09:35] LABS: Alanine Aminotransferase 13 U/L (0-31); Albumin Level 3.9 g/dL (3.5-5.0); Alkaline Phosphatase 39 U/L (39-117); Anion Gap 11 (12-20); Aspartate Amino Transferase 13 U/L (5-31); Bilirubin Total 0.2 mg/dL (0.0-1.0); Blood Urea Nitrogen 20 mg/dL (9-16); Calcium 9.6 mg/dL (8.4-10.2); Carbon Dioxide 27 mmol/L (22-29); Chloride 106 mmol/L (96-108); Estimated Glomerular Filt Rate > 60; Glucose Random 82 mg/dL (60-115); Potassium 4.6 mmol/L (3.3-5.1); Sodium 139 mmol/L (135-145); Total Protein 6.4 g/dL (6.5-8.0)
[2023-07-08 21:44] LABS: Collagen Type I C-Telopeptide 509 pg/mL (see note)
[2023-07-08 22:49] LABS: Alkaline Phosphatase Bone 6.9 mcg/L (5.6-29.0)
== END 2023-07-04 06:57 | disposition home or self-care (01) ==
LOC: HO.LAB 06:56
PROVIDERS: PCP Internal Medicine; Visit Provider Nurse Practitioner Family
DX: M81.0 Age-related osteoporosis without current pathological fracture (principal)
CPT/HCPCS: 36415; 80053; 82523; 84075

== ENCOUNTER 2023-07-05 12:39 | Outpatient (AMB) | payer OTHER, SELFPAY ==
--- NOTE | 2023-07-05 16:16 | AM.OFFVISNUR ---
Intake Intake Visit Reasons: Prolia Allergies Victoza Allergy (Intermediate, Uncoded 06/20/23 15:37) nausea and vomiting Codeine Adverse Reaction (Intermediate, Uncoded 06/20/23 15:37) nausea Nursing Note Patient here for first Prolia injection. Patient was provided information regarding Prolia. She gave consent for me to administer Prolia. Prolia administered on right upper arm. She tolerated injection well. Office Meds Prolia 60 mg/mL subcutaneous syringe Performing Provider: DEIRDRE Nam Performing Location: [facility] [place] [facility] Rheumatology Administered by: Margaret Estes RN on 07/05/23 13:20 Dose Route Admin Location Dispensed Lot Number Expiration Date [facility] In Home Sales Consultant 60 mg subcut right upper arm 1 mL [id number] 06/26/25 53275-465-76 [employer] Coding Level of Care Code Procedure Only Assessment & Plan Assessment & Plan Orders: Orders AMB Denosumab Injection Practice Supplied Today M85.80 - Other specified disorders of bone density and structure, unspecified site
== END 2023-07-05 13:11 | disposition home or self-care (01) ==
LOC: HO.RHE 12:40
PROVIDERS: PCP Internal Medicine; Visit Provider Nurse Practitioner Family
DX: M85.80 Other specified disorders of bone density and structure, unspecified site (principal)

== ENCOUNTER → 2023-07-05 12:39 | Outpatient (BNVA) | payer OTHER, SELFPAY | PROVIDERS: PCP Internal Medicine; Visit Provider Nurse Practitioner Family | DX: M85.80 Other specified disorders of bone density and structure, unspecified site (principal) | CPT/HCPCS: 96372; J0897 ==

== ENCOUNTER 2023-11-14 09:20 | Outpatient (AMB) | payer OTHER, SELFPAY ==
[2023-11-14 09:26] VITALS: BP 110/64; BMI 25.6
--- NOTE | 2023-11-14 09:26 | MHC.PC.OV ---
Vital Signs 11/14/23 09:26 Height 5 ft 5 in Weight 154 lb BMI 25.6 BP 110/64 Blood Pressure Location Lt brachial Position Sitting Intake Visit Reasons: Annual Exam Intake Note: Patient here for an annual physical exam [place] Technician Required: No Accompanied by: Self / Same As Patient Allergies Victoza Allergy (Intermediate, Uncoded 11/14/23 09:43) nausea and vomiting Codeine Adverse Reaction (Intermediate, Uncoded 11/14/23 09:43) nausea Medication List - Last Reconciled 11/14/23 by Orin Can MD aripiprazole 5 mg PO DAILY 90 days atomoxetine 40 mg PO QAM 90 days atorvastatin 20 mg PO DAILY 90 days blood sugar diagnostic As directed blood sugar diagnostic (FreeStyle Lite Strips) As directed 4 times a day blood sugar diagnostic (FreeStyle Lite Strips) As directed 4 times a day blood-glucose meter (FreeStyle [place] Lite kit) As directed bupropion HCl XL 150 mg PO DAILY 90 days bupropion HCl XL 300 mg PO DAILY 90 days calcium carbonate (Oyster Shell Calcium) 500 mg PO DAILY 90 days cholecalciferol (vitamin D3) 50 mcg PO DAILY 90 days denosumab (Prolia) 60 mg subcut [id number] gabapentin 100 mg PO BEDTIME ibuprofen 800 mg PO Q8H PRN 30 days lancets As directed lisinopril 10 mg PO DAILY 90 days metformin ER 1,000 mg (2 x 500 mg) PO BID 90 days ondansetron 8 mg PO Q12H PRN 5 days pen needle, diabetic (BD Ultra-Fine Nora Pen Needle) 1 ea subcut DAILY 90 days semaglutide (Ozempic) 0.5 mg (0.736 mL) subcut QWEEK 90 days Tobacco use date assessed: 11/14/23 Fall risk assessment: No Falls in past year Last assessed Fall Risk: 11/14/23 Dental Screening Dental Screen Date: 11/14/23 Did you have a dental visit in the last 12 months?: No Did you have a dental problem in the last 6 months where you did not have access to dental care?: No Was dental information given to patient?: Patient has dentist HPI HPI Comments History of Present Illness Details This is a 63-year-old female with diabetes mellitus type 2 and mild recurrent major depression that comes today for her physical exam. A1c within goal. Last diabetic eye exam was 2023 and showed no diabetic retinopathy. Depression stable with Abilify and this is follow by Psychiatry. Mammogram done less than a year ago was normal. DEXA scan shows osteoporosis and Rheumatology start her on Prolia. Declines colonoscopy but is willing to do Cologuard. Complains of nausea and vomiting when she is working in the garden with her head down and squatting. I will order ondansetron as needed for nausea and vomiting. [facility] Medical History (Updated 11/14/23 @ 10:45 by Orin Can MD) Mild recurrent major depression B12 deficiency Jaime's disease Dyslipidemia Hypertension Diabetic polyneuropathy associated with type 2 diabetes mellitus assisted (current) use of insulin Diabetes type 2, controlled Surgical History Hx of section Family History (Updated 11/14/23 @ 09:48 by Orin Can MD) Father Raynaud's syndrome without gangrene Mother No problems noted. Daughter Breast cancer, Onset Age: 38 Social History Household Members: None Housing: Apartment Alcohol intake: never Patient Tobacco Use Status: Former Tobacco user Tobacco use type: Cigarette e-Cigarette/Vaping Use: Never Used Second Hand Smoke Exposure: No service: No Current occupational status: unemployed Cognitive needs: No Hearing needs: No Vision needs: No Questionnaire PHQ-9 Over the last 2 weeks, how often have you been bothered by any of the following problems? 1. Little interest or pleasure in doing things: not at all 2. Feeling down, depressed, or hopeless: several days 3. Trouble falling or staying asleep, or sleeping too much: several days 4. Feeling tired or having little energy: not at all 5. Poor appetite or overeating: more than half the days 6. Feeling bad about yourself - or that you are a failure or have let yourself or your family down: not at all 7. Trouble concentrating on things, such as reading the newspaper or watching television: not at all 8. Moving or speaking so slowly that other people could have noticed. Or the opposite - being so fidgety or restless that you have been moving around a lot more than usual: not at all 9. Thoughts that you would be better off or of hurting yourself in some way: not at all Total score: 4 Depression Screening Interpretation: Positive Depression Screening Follow-up: Existing condition, In treatment, Community Mental Health Worker F/U and Follow-up Visit Requested Depression Screening Done: Yes 54856 - PHQ-9 Billing: Yes Source: Developed by Drs. Antwan Hunt, Melissa Xiong, Kevin Gutierrez and colleagues, with an educational romulo from [employer]. Thrive Questionnaire Date Thrive assessed: 11/14/23 I am a: Patient What is your living situation today?: I have a steady place to live Within the past 12 months, did the food you bought not last and you didn't have the money to get more?: Never true Within the past 12 months, did you worry whether your food would run out before you got money to buy more?: Never true Do you have trouble paying for medicines?: No Do you have trouble getting transportation to medical appointments?: No Do you have trouble paying your heating and electricity bill?: No Do you have trouble taking care of your child, family member or friend?: No Do you have trouble with day-to-day activities such as bathing, preparing meals, shopping, managing finances, etc.?: No Are you currently unemployed and looking for a job?: No Are you interested in more education?: No Please select the resources that you would like help with: None Currently or been in a relationship where the following occur: No concerns reported THRIVE Score: 0 AUDIT C Alcohol Use Questionnaire (AUDIT-C) 1. How often do you have a drink containing alcohol?: Never Total Score: 0 KYA-7 AMB Questionnaire KYA-7 Date KYA - 7 assessed: 11/14/23 Feeling nervous, anxious, or on edge: 2 = More than half the days Not being able to stop or control worryin = Not at all Worrying too much about different things: 2 = More than half the days Trouble relaxin = More than half the days Being so restless that it is hard to sit still: 0 = Not at all Becoming easily annoyed or irritable: 0 = Not at all Feeling afraid as if something awful might happen: 2 = More than half the days Total KYA-7 score (0-4 normal; 5-9 mild; 10-14 moderate; 15-21 severe): 8 Source: Developed by Drs. Antwan Hunt, Melissa Xiong, Kevin Gutierrez and colleagues, with an educational romulo from [employer]. KYA-7 Assessment Billing KYA-7 Assessment Tool: KYA-7 Assessment 28538 Review of Systems Const All systems reviewed & are unremarkable except as noted in HPI and below Card Denies chest pain at rest, Denies chest pain with activity, Denies edema, Denies irregular heart rhythm, Denies claudication, Denies dyspnea, Denies dyspnea on exertion, Denies orthopnea, Denies paroxysmal nocturnal dyspnea and Denies slow heart rate Resp Denies cough, Denies dyspnea and Denies dyspnea on exertion Neuro Denies lack of coordination Physical exam (Primary Care) Vital Signs: Last Vital Signs BP 110/64 11/14/23 09:26 BMI result Body Mass Index 25.6 Tobacco/Smoking Status: Tobacco use Status Tobacco use date assessed 11/14/23 11/14/23 09:31 Patient Tobacco Use Status Former Tobacco user 11/14/23 09:31 Tobacco use type Cigarette 11/14/23 09:31 e-Cigarette/Vaping Use Never Used 11/14/23 09:31 PHQ-9: PHQ-9 Score PHQ-9: Total score 4 11/14/23 09:50 Depression Screening Interpretation: Positive Depression Screening Follow-up: Existing condition, In treatment, Community Mental Health Worker F/U and Follow-up Visit Requested Thrive Assessment: Date of Thrive Assessment Date Thrive assessed 11/14/23 11/14/23 09:31 Currently or been in a relationship where the following occur: No concerns reported [facility] Head: Yes normal to inspection, Yes normocephalic and Yes atraumatic Ears: external ears normal Eyes General: appearance normal, both eyes and all related structures Eyelids: Yes eyelids normal Conjunctivae: conjunctivae normal Neck Neck: Yes normal visual inspection and Yes supple Resp Effort & Inspection: normal respiratory effort Auscultation: clear to auscultation bilaterally Cardio Jugular venous distension: no JVD Rate: regular rate Rhythm: regular rhythm Heart sounds: S1 normal heart sound present and S2 normal heart sound present GI Inspection: Yes normal to inspection Palpation (GI): Soft to palpation and nontender Auscultation: normal bowel sounds Skin General skin exam: no rashes or lesions noted Neuro General: no focal motor deficits Extrem General: Yes full ROM Psych Appearance: grossly normal Results AMB Hemoglobin A1c AMB Hemoglobin A1c 5.3 % Last Edit by FRITZ Gonsales on 11/14/23 09:42 Results Reviewed Results Reviewed: Laboratory Last Values Hgb A1c (Clinic) 5.3 % (4.0-6.0) 11/14/23 09:34 Assessment and Plan Assessment & Plan (1) Physical exam: Code(s): Z00.00 - Encounter for general adult medical examination without abnormal findings Plan: Repeat in a year. 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 A1c goal is equal or less than 7%. (3) Mild recurrent major depression: Code(s): F33.0 - Major depressive disorder, recurrent, mild Plan: Continue Abilify and bupropion. Follow-up with psychiatry. (4) Nausea and vomiting: Code(s): R11.2 - Nausea with vomiting, unspecified Qualifiers: Vomiting type: unspecified Qualified Code(s): R11.2 - Nausea with vomiting, unspecified Plan: Start ondansetron as needed. Orders: Orders Lipid Panel Today E78.5 - Hyperlipidemia, unspecified Microalbumin, Random (w Creat) Today E11.9 - Type 2 diabetes mellitus without complications Comprehensive [place]. Panel Fast Today Z00.00 - Encounter for general adult medical examination without abnormal findings Thyroid Stimulating Hormone Today R79.89 - Other specified abnormal findings of blood chemistry Thyroid Peroxidase Antibodies Today R79.89 - Other specified abnormal findings of blood chemistry AMB Hemoglobin A1c Today E11.9 - Type 2 diabetes mellitus without complications, Z79.4 - exterminator (current) use of insulin Vitamin D 25-OH Total Today E55.9 - Vitamin D deficiency, unspecified Free T4 (Free Thyroxine) Today R79.89 - Other specified abnormal findings of blood chemistry Thyroglobulin Antibodies Today R79.89 - Other specified abnormal findings of blood chemistry Medications: New ondansetron 8 mg PO Q12H PRN 10 tabs 0RF nausea and vomiting 5 days Review Patient declined Colonoscopy: 11/14/23 Coding Level of Care Code Est Pt Level 3 (49265) Est Pt Prev Care >65y(65772) Diagnoses Physical exam Z00.00 Controlled type 2 diabetes mellitus without complication, with long-term current use of insulin E11.9; Z79.4 Diabetes mellitus superintendent container terminal insulin use: with superintendent container terminal use Diabetes mellitus complication status: without complication Mild recurrent major depression F33.0 Nausea and vomiting, unspecified vomiting type R11.2 Vomiting type: unspecified Additional Codes KYA-7 Assessment Billing - KYA-7 Assessment Tool: KYA-7 Assessment 79956 ([id number]) Time Spent (min) 35
== END 2023-11-14 09:55 | disposition home or self-care (01) ==
PROVIDERS: PCP Internal Medicine; Visit Provider Internal Medicine
DX: Z00.00 Encounter for general adult medical examination without abnormal findings (principal); E11.9 Type 2 diabetes mellitus without complications; Z79.4 Long term (current) use of insulin; F33.0 Major depressive disorder, recurrent, mild; R11.2 Nausea with vomiting, unspecified
CPT/HCPCS: 83036; 99213; 99397

== ENCOUNTER 2024-01-09 07:03 | Outpatient (REF) | payer OTHER, SELFPAY ==
[2024-01-09 07:51] LABS: Alanine Aminotransferase 16 U/L (0-31); Albumin Level 4.4 g/dL (3.5-5.0); Alkaline Phosphatase 32 U/L (39-117); Anion Gap 12 (12-20); Aspartate Amino Transferase 16 U/L (5-31); Bilirubin Total 0.3 mg/dL (0.0-1.0); Blood Urea Nitrogen 17 mg/dL (9-16); Calcium 10.5 mg/dL (8.4-10.2); Carbon Dioxide 28 mmol/L (22-29); Chloride 104 mmol/L (96-108); Cholesterol 114 mg/dL (<200); Estimated Glomerular Filt Rate > 60; Glucose Fasting 86 mg/dL (60-99); HDL Cholesterol 50 mg/dL (>40); LDL Cholesterol Calculated 57 mg/dL (<100); Potassium 4.3 mmol/L (3.3-5.1); Sodium 140 mmol/L (135-145); Triglycerides 36 mg/dL (<150)
[2024-01-09 08:13] LABS: Vitamin D 25-OH Total 75.9 ng/mL (>30)
[2024-01-09 08:18] LABS: Folate 9.8 ng/mL (> or = 4.0); Vitamin B12 297 pg/mL (200-900)
[2024-01-09 10:51] LABS: Creatinine Urine 116.41 mg/dL; Microalbum/Creatinine Ratio Ur 7.7 ug/mg cr (<30)
[2024-01-10 17:44] LABS: Thyroglobulin Antibodies <1 IU/mL (< or = 1); Thyroid Peroxidase Antibodies 30 IU/mL (<9)
== END 2024-01-09 07:04 | disposition home or self-care (01) ==
LOC: HO.LAB 07:03
PROVIDERS: PCP Internal Medicine; Visit Provider Internal Medicine
DX: E11.9 Type 2 diabetes mellitus without complications (principal); Z79.4 Long term (current) use of insulin; E78.5 Hyperlipidemia, unspecified; E55.9 Vitamin D deficiency, unspecified; E53.8 Deficiency of other specified B group vitamins; R79.89 Other specified abnormal findings of blood chemistry
CPT/HCPCS: 36415; 80053; 80061; 82043; 82306; 82570; 82607; 82746; 84439; 84443; 86376; 86800

== ENCOUNTER 2024-01-24 09:21 | Outpatient (AMB) | payer OTHER, SELFPAY ==
[2024-01-24 09:32] VITALS: BP 108/64; PULSE 92; O2SAT 99; BMI 26.0
--- NOTE | 2024-01-24 09:32 | A.OFFVIS_ITS ---
Vital Signs 01/24/24 09:32 Height 5 ft 5 in Weight 156 lb 8.451 oz BMI 26.0 BP 108/64 Blood Pressure Location Lt brachial Position Sitting Pulse 92 Pulse Source Pulse Oximeter Pulse Oximetry (%) 99 Oxygen Delivery Method Room Air Intake Visit Reasons: follow up Osteoporosis/prolia inj Intake Note: Patient is here for F/U on osteoporosis and prolia injection. Allergies Victoza Allergy (Intermediate, Uncoded 01/24/24 09:34) nausea and vomiting Codeine Adverse Reaction (Intermediate, Uncoded 01/24/24 09:34) nausea Medication List - Last Reconciled 01/24/24 by aCssie Xie MD aripiprazole 5 mg PO DAILY 90 days atomoxetine 40 mg PO QAM 90 days atorvastatin 20 mg PO DAILY 90 days blood sugar diagnostic As directed blood sugar diagnostic (FreeStyle Lite Strips) As directed 4 times a day blood sugar diagnostic (FreeStyle Lite Strips) As directed 4 times a day blood-glucose meter (FreeStyle [place] Lite kit) As directed bupropion HCl XL 150 mg PO DAILY 90 days bupropion HCl XL 300 mg PO DAILY 90 days calcium carbonate (Oyster Shell Calcium) 500 mg PO DAILY 90 days cholecalciferol (vitamin D3) 50 mcg PO DAILY 90 days denosumab (Prolia) 60 mg subcut [id number] gabapentin 100 mg PO BEDTIME ibuprofen 800 mg PO Q8H PRN 30 days lancets As directed lisinopril 10 mg PO DAILY 90 days metformin ER 1,000 mg (2 x 500 mg) PO BID 90 days ondansetron 8 mg PO Q12H PRN 5 days pen needle, diabetic (BD Ultra-Fine Nora Pen Needle) 1 ea subcut DAILY 90 days semaglutide (Ozempic) 0.5 mg (0.736 mL) subcut QWEEK 90 days HPI Comments Details: Patient is a 62-year-old female with well-controlled diabetes and depression presents today for management of osteoporosis. Interval History: Patient last seen 05/2023. At that time patient was started on Prolia for treatment of osteoporosis. Highest T-score -2.6 in the spine, -2.0 in the hip. Patient states that the injection was painful but she tolerated fine. No adverse side effects Today she denies any falls, bone pain, joint pain. Of note she today complains of several episodes of nausea with vomiting after positional changes specifically bending forward. States this is new has not happened before and has been going on for 2 months. Happening at least 4 times per week. Denies dizziness, vertigo, loss of consciousness, vision changes, palpitations. Rheumatologic History: Patient referred by PCP 05/2023 for the management of osteoporosis. DEXA scan done 03/2023 revealed osteoporosis in the spine. Evaluation for secondary causes of osteoporosis/osteomalacia unremarkable. Patient reports that she had a spine fracture 2 years ago. I do not have current evidence of that. I do see a lumbar x-ray that reports disc height loss but none that corroborates spine fracture. 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 Daughter Breast cancer, Onset Age: 38 Social History Household Members: None Housing: Apartment Alcohol intake: never Patient Tobacco Use Status: Former Tobacco user Tobacco use type: Cigarette e-Cigarette/Vaping Use: Never Used Second Hand Smoke Exposure: No service: No Current occupational status: unemployed Cognitive needs: No Hearing needs: No Vision needs: No Review of Systems Const Details: Review of Systems Constitutional: Denies fever, chills, weight loss ENT: Denies vision changes, eye pain or eye redness, dental caries, dry mouth GI: Denies diarrhea, abdominal pain, change in BM. Positive for nausea and vomiting Pulm: Denies SOB, RICHTER, hemoptysis, wheezing Cards: Denies chest pain, palpitations Skin: Denies Raynaud's, rash, nail changes, photosensitivity, AUDIT OFFICER: Denies headaches, weakness, paresthesias. MSK: Denies joint pain and joint stiffness. Denies joint swelling, muscle weakness All systems reviewed & are unremarkable except as noted in HPI and below Physical Exam Vital Signs: Last Vital Signs Pulse 92 01/24/24 09:32 BP 108/64 01/24/24 09:32 Pulse Ox 99 01/24/24 09:32 Oxygen Delivery Method Room Air 01/24/24 09:32 BMI result Body Mass Index 26.0 Const Other: Physical Examination Patient well appearing and in no apparent painful distress Able to rise from chair without support. ?Gait normal. Constitutional: ?Mucous membranes pink and moist patient alert and cooperative HEENT: ?Conjunctiva and sclera clear. ?Pupils equal round and reactive to light. ?No lymphadenopathy. ?Normal dentition. Resp: ?Normal respiratory effort and able to speak in complete sentences. ?Clear to auscultation bilaterally. ?No crackles, rales, rhonchi, wheezes heard. Cards: ?Regular rate and rhythm. ?S1 and S2 heard no murmurs. ?Radial pulses intact bilaterally MSK: ?No deformity, swelling, abnormalities noted to bilateral hands. ?No evidence of synovitis. ?Able to move all joints with full range of motion, without limitation. Office Meds Prolia 60 mg/mL subcutaneous syringe Performing Provider: Cassie Xie MD Performing Location: [facility] Rheumatology Administered by: Cassie Xie MD on 01/24/24 10:29 Dose Route Admin Location Dispensed Lot Number Expiration Date [facility] [place] 60 mg subcut 1 mL [id number] 04/27/26 64073-771-15 [employer] Results Reviewed Results Reviewed: DEXA Scan 04/09/23 LEFT FEMUR, NECK: Current: BMD 0.755 g/cm2, Z-score -0.6, T-score -2.0, osteopenia. Baseline: BMD 0.757 g/cm2. LEFT FEMUR, TOTAL: Current: BMD 0.781 g/cm2, Z-score -0.6, T-score -1.8, osteopenia, 8.3% decrease from baseline (<5% change is not significant). Baseline: BMD 0.852 g/cm2. AP SPINE L1-L4: Current: BMD 0.868 g/cm2, Z-score -1.0, T-score -2.6, osteoporosis, 7.3% decrease from baseline (<5% change is not significant). Baseline: BMD 0.936 g/cm2. Laboratory Tests 01/09/24 07:13 Calcium 10.5 H D Alkaline Phosphatase 32 L 25-OH Vitamin D Total 75.9 Assessment & Plan Assessment & Plan (1) Osteoporosis: Comment: Medication History: Prolia (denosumab) 60mg qmth - Started 05/2023 - Second dose: 12/2023 Code(s): M81.0 - Age-related osteoporosis without current pathological fracture Category: Medical Qualifiers: Osteoporosis type: age-related Presence of current pathological fracture: without current pathological fracture Qualified Code(s): M81.0 - Age-related osteoporosis without current pathological fracture Plan: #Osteoporosis Mrs. Treadwell is here for management of her osteoporosis. Bone density 04/17/2023 shows lowest T-score-2.6. She is here for her 2nd dose of Prolia. Did not have any issues with the 1st dose. We will re-evaluate bone density after 1 year of Prolia: 05/2024. (2) TSH elevation: Code(s): R79.89 - Other specified abnormal findings of blood chemistry Category: Medical Plan: There are lab values that show elevated TSH but none that shows that it has been resolved. The patient reports that her thyroid is being monitored by her primary care. She says she was was started on levothyroxine and then based on a a follow-up lab she was taken off the medication. We will reach out to primary (3) Low intestinal alkaline phosphatase level: Code(s): R74.8 - Abnormal levels of other serum enzymes Plan: Low ALP is concerning for conditions such as hypophosphatasia She is currently on vit D and calcium Will re check her labs prior to her next visit including Vit B6 (which is elevated in hypophosphatasia) (4) Vomiting: Code(s): R11.10 - Vomiting, unspecified Plan: Patient is complaining of vomiting after positional changes in her head. Differentials for this include benign paroxysmal positional vertigo or carotid artery stenosis with positional brain hypoxia. The seems unlikely given that she has not also complaining of neurologic symptoms after the vomiting. We will refer to ENT for evaluation and potentially treatment of her presumed BPPV. (5) Long-term current use of bisphosphonate: Code(s): Z79.83 - assisted (current) use of bisphosphonates Plan: Long-term use of Denosumab Discussed with patient the risks and benefits of denosumab (Prolia) for the management of their osteoporosis Benefits include improved bone density and decrease risk of fracture Risks include rapid bone loss if denosumab stopped, osteonecrosis of the jaw especially in patients with poor oral hygiene/diabetes/use of glucocorticoids/age greater than 65 years, atypical femoral fractures, injection site reactions Patient was advised that if they plan to stop denosumab would need to continue antiresorptive to maintain the effects of denosumab Plan I spent [45] minutes reviewing the record and labs, seeing the patient, discussing with other providers and documenting in the medical record Orders: Orders Comprehensive Met. Panel 6 Months E55.9 - Vitamin D deficiency, unspecified, E83.39 - Other disorders of phosphorus metabolism, M81.0 - Age-related osteoporosis without current pathological fracture, R79.89 - Other specified abnormal findings of blood chemistry Complete Blood Count Auto Diff 6 Months E55.9 - Vitamin D deficiency, unspecified, E83.39 - Other disorders of phosphorus metabolism, M81.0 - Age- related osteoporosis without current pathological fracture, R79.89 - Other specified abnormal findings of blood chemistry Vitamin B6 6 Months E55.9 - Vitamin D deficiency, unspecified, E83.39 - Other disorders of phosphorus metabolism, M81.0 - Age-related osteoporosis without current pathological fracture, R79.89 - Other specified abnormal findings of blood chemistry AMB Denosumab Injection Practice Supplied Today M81.0 - Age-related osteoporosis without current pathological fracture Alkaline Phosphatase Bone 6 Months E55.9 - Vitamin D deficiency, unspecified, E83.39 - Other disorders of phosphorus metabolism, M81.0 - Age-related osteoporosis without current pathological fracture, R79.89 - Other specified abnormal findings of blood chemistry Vitamin D 25-OH (D2 and D3) 6 Months E55.9 - Vitamin D deficiency, unspecified, E83.39 - Other disorders of phosphorus metabolism, M81.0 - Age-related osteoporosis without current pathological fracture, R79.89 - Other specified abnormal findings of blood chemistry Referrals Ear/Nose/Throat Referral H81.10 - Benign paroxysmal vertigo, unspecified ear Coding Level of Care Code Est Pt Level 4 (01010) Diagnoses Age-related osteoporosis without current pathological fracture M81.0 Osteoporosis type: age-related Presence of current pathological fracture: without current pathological fracture TSH elevation R79.89 Low intestinal alkaline phosphatase level R74.8 Vomiting R11.10 Long-term current use of bisphosphonate Z79.83
== END 2024-01-24 09:59 | disposition home or self-care (01) ==
PROVIDERS: PCP Internal Medicine; Visit Provider Student in an Organized Health Care Education/Training Program
DX: M81.0 Age-related osteoporosis without current pathological fracture (principal); R79.89 Other specified abnormal findings of blood chemistry; R74.8 Abnormal levels of other serum enzymes; R11.10 Vomiting, unspecified; Z79.83 Long term (current) use of bisphosphonates
CPT/HCPCS: 99215

== ENCOUNTER → 2024-01-24 09:21 | Outpatient (BNVA) | payer OTHER, SELFPAY | PROVIDERS: PCP Internal Medicine; Visit Provider Student in an Organized Health Care Education/Training Program | DX: M81.0 Age-related osteoporosis without current pathological fracture (principal); R74.8 Abnormal levels of other serum enzymes; R11.10 Vomiting, unspecified; R79.89 Other specified abnormal findings of blood chemistry; E55.9 Vitamin D deficiency, unspecified; E83.39 Other disorders of phosphorus metabolism; Z51.81 Encounter for therapeutic drug level monitoring; Z79.83 Long term (current) use of bisphosphonates | CPT/HCPCS: 96372; 99212; J0897 ==

== ENCOUNTER 2024-03-05 10:18 | Outpatient (AMB) | payer OTHER, SELFPAY ==
--- NOTE | 2024-03-05 10:23 | MHC.OFFVIS ---
Intake Visit Reasons: SLUNK SKINNER annual exam Gradall Operator: Gradall Operator Present (Jaimee ) Allergies Victoza Allergy (Intermediate, Uncoded 01/24/24 09:34) nausea and vomiting Codeine Adverse Reaction (Intermediate, Uncoded 01/24/24 09:34) nausea HPI Comments Details: She is a postmenopausal woman presenting for her annual [employer] examination. She is doing well with no concerns. Attempting to eat a healthy diet with calcium and vitamin D and stays active with some exercise-gardening. Currently not sexually active. Denies any vaginal dryness or irritation. STI testing offered; she declines. Last pap smear; 2019. Last mammogram; 2022. Colonoscopy is UTD. Denies any family history of breast, ovarian or colon cancer. FORMERLY [facility], [facility] Medical History Mild recurrent major depression B12 deficiency Jaime's disease Dyslipidemia Hypertension Diabetic polyneuropathy associated with type 2 diabetes mellitus halfway (current) use of insulin Diabetes type 2, controlled Surgical History Hx of section Family History Father Raynaud's syndrome without gangrene Mother No problems noted. Daughter Breast cancer, Onset Age: 38 Social History Household Members: None Housing: Apartment Alcohol intake: never Patient Tobacco Use Status: Former Tobacco user Tobacco use type: Cigarette e-Cigarette/Vaping Use: Never Used Second Hand Smoke Exposure: No service: No Current occupational status: unemployed Cognitive needs: No Hearing needs: No Vision needs: No Female Reproductive History Menstrual Total pregnancies: 2 Full term: 2 Date of last pap smear: 12/03/19 (negative pap smear, negative hpv) Date of Mammogram: 03/26/23 (bi-rad 1) Date of last Bone Density Screenin04/09/23 Review of Systems Const All systems reviewed & are unremarkable except as noted in HPI and below Reports as per HPI Eyes Reports no additional complaints ENT Reports no additional complaints Card Reports no additional complaints Resp Reports no additional complaints GI Reports as per HPI and Reports no additional complaints Reports as per HPI Musc Reports no additional complaints Skin/Breast Reports as per HPI Neuro Reports no additional complaints Psych Reports no additional complaints Endo Reports no additional complaints Guy/Lymph Reports no additional complaints Aller/Immun Reports no additional complaints Physical Exam Const General: cooperative, healthy appearing, no acute distress, well developed and alert Orientation/consciousness: patient oriented x3 HEENT Head: Yes normal to inspection Eyes General: appearance normal, both eyes and all related structures Neck Neck: Yes normal visual inspection Thyroid: Thyroid normal Chest Chest palpation & inspection: normal inspection of the chest and other (no puckering, dimpling, peau de orange, retraction, discharge, masses) Breast/axilla inspection: normal inspection of the breasts Breast/axilla palpation: normal palpation of the breasts Resp Effort & Inspection: normal respiratory effort GI Inspection: Yes normal to inspection Palpation (GI): Soft to palpation Rectal Exam - Female: deferred General: Yes bladder normal to palpation External Female Exam: normal external appearance and normal appearance of the urethra Speculum Exam - Vagina: normal appearance of the vagina, normal palpation, normal vaginal discharge and vagina atrophic Speculum Exam - Cervix: normal appearance of the cervix and normal palpation Bimanual exam- vagina & uterus: normal bimanual exam, normal palpation, uterine size normal, bladder normal to palpation, normal palpation and non-tender Bimanual Exam- Adnexa, other: no masses Skin General skin exam: no rashes or lesions noted Rashes: no rashes Neuro General: patient oriented x3 Cognition (Neuro): normal cognition Extrem General: Yes normal to inspection Psych Attitude: cooperative Thought process: Normal thought process present Assessment & Plan Assessment & Plan (1) Encounter for well woman exam with routine gynecological exam: Code(s): Z01.419 - Encounter for gynecological examination (general) (routine) without abnormal findings Category: Medical Plan Discussed: Current recommendations for pap smears per ASCCP guidelines. Breast awareness, periodic self breast exams and yearly mammogram. Maintain a healthy lifestyle, well balanced diet including Calcium 1,200 mg and Vitamin D 600 IU daily, and routine exercise. Contact the office with any postmenopausal bleeding. Patient verbalizes understanding and agrees to the plan of care. She was given opportunity to ask questions and all questions were answered to the best of my ability. RTO in 1 year for annual [employer] exam. This note is constructed using voice recognition software. While every effort has been made to ensure accuracy, healthcare translator errors may have been included. Coding Level of Care Code Est Pt Prev Care >65y(28201) Diagnoses Encounter for well woman exam with routine gynecological exam Z01.419
== END 2024-03-05 10:57 | disposition home or self-care (01) ==
LOC: HO.HWS 10:19
PROVIDERS: PCP Internal Medicine; Visit Provider Advanced Practice Midwife
DX: Z01.419 Encounter for gynecological examination (general) (routine) without abnormal findings (principal)
CPT/HCPCS: 99397

== ENCOUNTER 2024-03-05 10:18 | Outpatient (REF) | payer OTHER, SELFPAY ==
[2024-03-05 12:57] LABS: Free T4 (Free Thyroxine) 0.97 ng/dL (0.71-1.85); Thyroid Stimulating Hormone 1.81 uIU/mL (0.32-4.0); Vitamin D 25-OH Total 71.2 ng/mL (>30)
[2024-03-06 12:52] LABS: Thyroglobulin Antibodies <1 IU/mL (< or = 1); Thyroid Peroxidase Antibodies 22 IU/mL (<9)
== END 2024-03-05 10:19 | disposition home or self-care (01) ==
LOC: HO.LAB 10:18
PROVIDERS: PCP Internal Medicine; Referring Provider Internal Medicine; Visit Provider Advanced Practice Midwife
DX: R79.89 Other specified abnormal findings of blood chemistry (principal); E55.9 Vitamin D deficiency, unspecified; Z01.419 Encounter for gynecological examination (general) (routine) without abnormal findings; E06.3 Autoimmune thyroiditis
CPT/HCPCS: 36415; 82306; 84439; 84443; 86376; 86800; 99397

== ENCOUNTER 2024-03-31 15:20 | Outpatient (REF) | payer OTHER, SELFPAY ==
--- NOTE | ~2024-03-31 | MM_ITS ---
EXAMINATION: MM SCREENING DIGITAL BREAST TOMOSYNTHESIS, BILATERAL CLINICAL INFORMATION: Screening. Asymptomatic. COMPARISON: Mammography: Comparison is made with available priors TECHNIQUE: Digital breast mammography with tomosynthesis is performed in both the craniocaudal and mediolateral oblique views along with computer-aided detection (CAD). FINDINGS: The breasts are heterogeneously dense, which may obscure small masses (ACR BI-RADS breast composition Category c). There are no significant masses, abnormal calcifications, or other abnormalities. MM/MM tomosynthesis screening BI IMPRESSION: No mammographic evidence of malignancy. ASSESSMENT: BI-RADS BI-RADS 1 - Negative RECOMMENDATION: Routine annual mammography screening. 1 year F/U This examination should not preclude the clinical evaluation of a suspicious palpable abnormality. This patient's information was entered into a reminder system with a target due date for their next mammogram. Electronically signed by: Quin Martínez DO 04/07/2024 08:50 AM [facility]
--- OUTSIDE RECORDS SUMMARY | 2024-04-07 15:10 | XMS_ITS ---
[facility] Organization [facility] Address [address] [facility] [place] [address] Care Team Providers Care Coil Strapper Name Role Phone Clara LAL, Orin Primary Care Provider Unavail able Lino Brad Unavailable [phone] Ludivina Villar Unavailable [phone] Allergies Allergen (clinical drug ingredient) Drug/Non Drug Allergy documented on EMR Reaction Allergy Type Onset Date Status acetaminophen / codeine Codeine with Tyl enol (uncoded) sickness Allergy Active REASON FOR VISIT At Risk Footcare, Skin Problem, Toe Irritation Medications Medication SIG (Take, Route, Frequency, Duration) Notes Start Date End Date Status Vitamin D Active Wellbutrin Active Janumet Active Ozempic Active Lantus 100 UNIT/ML as directed Subcutaneous Active metFORMIN HCl Active Calcium Active ARIPiprazole Active Atorvastatin Calcium Active Ciclopirox Olamine 0.77 % 1 application to affected area Externally Twice a day to effected areas on feet for 30 days Active Atomoxetine HCl Acti ve Ciclopirox Olamine 0.77 % 1 application Externally Twice a day to skin of feet including between the toes for 30 days Active Social History Tobacco Use: Social History Observation Description Date Details (start date - stop date) Former Smoker NA - NA Tobacco Use/Smoking Question Answer Notes Are you a: former smoker Additional Findings: Tobacco Non-User Ex-cigaret te smoker Alcohol Screen Question Answer Notes Did you have a drink containing alcohol in the p ast year? No Points 0 Interpretation Negative Tobacco use other than smoking: Question Answer Notes Are you an other tobacco user? No Problems Problem Type SNOMED Code ICD Code Onset Dates Problem Status W/U Status Risk Notes Problem Acquired hammer toe of right foot (8684417994753 105) Other hammer toe(s) (acquired), right foot (M20.41) Active confirmed Problem Acquired hammer toe of left foot (2223134615653 103) Other hammer toe(s) (acquired), left foot (M20.42) Active confirmed Vital Signs Height 5ft 4in in 04/01/2024 Weight 146 lbs 04/01/2024 BMI 25.06 kg/m2 04/01/2024 Encounters Encounter Location Date Provider Diagnosis [facility] [address] [place] [address] 04/01/2024 Ludivina Villar Type 2 diabetes mellitus with diabetic polyneuropathy E11.42 ; Tinea pedis of both feet B35.3 ; Tinea unguium B35.1 ; Other hammer toe(s) (acquired), right foot M20.41 and Other hammer toe(s) (acquired), left foot M20.42 Assessments Encounter Date Diagnosis (ICD Code) Assessment Notes Treatment Notes Treatment Clinical Notes Section Notes 04/01/2024 Type 2 diabetes mellitus with diabetic polyneuropathy (ICD-10 - E11.42) 04/01/2024 Tinea pedis of both feet (ICD-10 - B35.3) 04/01/2024 Tinea unguium (ICD-10 - B35.1) 04/01/2024 Other hammer toe(s) (acquired), right foot (ICD-10 - M20.41) Patient Educated with: DIABETIC FOOT CARE INSTRUCTIONS. pdf (DIABETIC FOOT CARE INSTRUCTIONS. pdf) 04/01/2024 Other hammer toe(s) (acquired), left foot (ICD-10 - M20.42) Plan Of Treatment Medication Medication Name Sig Start Date Stop Date Notes Ciclopirox Olamine 0.77 % 1 application Externally Twice a day to skin of feet including between the toes for 30 days Treatment Notes Assessment Notes Other hammer toe(s) (acquired), right fo ot Patient Educated with: DIABETIC FOOT CARE INSTRUCTIONS.pdf (DIABETIC FOOT CARE INSTRUCTIONS.pdf) Next Appt Details Follow Up: 2 Months, Reason: Provider Name:Ludivina lechuga, 06/24/2024 11:15:00 AM, [address] [place], [address], Procedure Notes * Category Sub-Category Detail Notes Debride Nail 6-10 Nail debridement Performance o f this nail treatment by a nonprofessional would put this patients foot and overall health at risk. Therefore, debridement to affected nail(s), as described in exam, was performed extensively to reduce/remove overall nail length, girth, thickness, subungual debris, and necrotic tissue, by manual and/or electrical means through the use of a nail nipper and/or dremel-type cork grinder, to a more viable healthy nail plate or bed tissue 6-10 nails in total. Silver nitrate was used for any petechial bleeding as necessary. Definitive antifungal treatment options, both pharmaceutical and surgical, have been reviewed and discussed with the patient. The patient solely prefers the use of intermittent/as needed professional debridement services for their nail condition and understands the need for additional periodic treatments to maintain effectiveness in symptomatic relief - 80042 Keratoma Treatment Parring or Cutting o f Benign Hyperkeratotic Lesion(s) (-57) More than 4 Lesions - The Benign hyperkeratotic lesions, ( 8 ) in total, locations as stated and described in exam, were pared, and/or cut utilizing a sterile 15 blade, tissue nippers, and/or power dremel instrumentation - 60651 Progress Notes * Sydney TREADWELLDOB:[birth year] (63 yo F)Acc No.[id number]:04/01/2024 Progress Note Patient:?Sydney TREADWELL Provider:?Ludivina Villar DPM :1960???Age:63 Y???Sex:Female D ate:04/01/2024 Address:[address] [place] [address] [id number] Pcp:Orin Elizabeth MD Subjective: * Chief Complaints: * ???At Risk FootcareSkin Prob lemToe Irritation * HPI: ???At Risk footcare:?Pt States Last PCP Visit:?Date?03/17/2024 ???Skin problems:?Nature:?scaling , redness.?Location:?B/L .?Duration:?several days.?Course:?worse.?Toe pain:?Location:?B/L feet.?Duration:?several years.?Course:?worse.?Aggravated by:?shoes, any pressure.?Treatments:?change in shoes.? * ROS:?General/Constitutional:?Nausea?denies.?Vomiting?denies.?Hunger Thirst?denies.?Loss appetite?denies.?Chills?denies.?Fatigue?denies.?Fever?denies.?Night Sweats?denies.?Unexplained weight loss?denies.?Unexplained weight gain?denies.?HEENTM:?Dentures?admits.?Dizziness?denies.?Glasses/contacts?admits.?Retinopathy?adm its.?Blurred/double vision?denies.?TMJ?admits.?Discharge/drainage?denies.?Implants?denies.?Sore throat?denies.?Dental implants?denies.?Hard of hearing ?denies.?Difficulty chewing/swallowing/speaking?denies.?Nose bleeds?denies.?Sore mouth?denies.?Respiratory:?On O xygen?denies.?Pneumonia/pleurisy?denies.?Bronchitis?denies.?Emphysema?denies.?Co ughing?denies.?Cough blood?denies.?Shortness of breath?denies.?Wheezing?denies.?Cardiovascular:?Pacemaker?denies.?MVP?denies.?WPW?denies.?CHF?denies.?Heart attack?denies.?Septal defect?denies.?Rapid beat?denies.?Chest pain ?denies.?Atrial Fib.?denies.?Murmur/Palpitations?denies.?Gastrointestinal:?Hemorrhoids?denies.?Stomach/Abdominal pain?denies.?Dark blood stool?denies.?Irritable bowel ?denies.?Constipation?denies.?Diarrhea?denies.?Hematology:?Swelling?denies.?Clots?denies.?Varicose Veins?denies.?Bruising?denies.?Bleeding problem?denies.?Genitourinary:?Blood urine?denies.?Frequent/Painfu/urination/bladder control?admits.?Kidney stones?denies.?Infection (UTI)?denies.?Nephropathy?denies.?sex trans dis (STD)?denies.?Prostate?denies.?Musculoskeletal:?Hammertoes?denies.?Bunions?denies.?Back Pain?admits.?Muscle Cramps/ Resting?admits.?Muscle cramps / walking?admits.?Generalized aches and pains?admits.?Weakness?admits.?Integ.:?Lfood?denies.?Scars?denies.?Corns/calluses?denies.?Ingrown nails?denies.?Painful nails?denies.?Open Sores?denies.?Rashes?denies.?Neurologic:?Difficulty sleeping?admits.?Brain disorder?denies.?Numbness?denies.?Balance t rouble?denies.?Confusion?denies.?Fainting/blackouts?denies.?Tingling?denies.?Antoine mors?denies.? * Medical History:? * Surgical History:? x2 06/1983,03/1986 * Hospitalization/Major Diagno stic Procedure:?Denies Past Hospitalization * Family History:?Mother: valerie sheppard, diagnosed with Family history of arthritis.?Father: alive, foot problems, diagnosed with Other specified conditions influencing health status.?Paternal aunt: diagnosed with Other malignant neoplasm of unspecified site.?Maternal aunt: diagnosed with Other malignant neoplasm of unspecified site, Diabetic - NIDDM.? * Social History:?Tobacco Use:?Tobacco Use/Smoking?Are you a:?former smoker ?Additional Findings: Tobacco Non-User?Ex-cigarette smoker ?Tobacco use other than smoking?Are you an other tobacco user??No ???Drugs/Alcohol:?Drugs?Have you used drugs other than those for medical reasons in the past 12 months??No ?Alcohol Screen?Did you have a drink containing alcohol in the past year??No ?Points?0 ?Interpretation?Negative ???Miscellaneous:?Caffeine: no, 2-4 cups per day. ?Children: yes, 2. ?Exercise: yes, gardening/yard work. ?Marital status: . ?Occupation: N/A. * Medications:?TakingAtomoxeti ne HCl metFORMIN HCl Ciclopirox Olamine 0.77 % Cream 1 application to affected area Externally Twice a day to effected areas on feet ARIPiprazole Atorvastatin Calcium Calcium Lantus 100 UNIT/ML Solution as directed Subcutaneous Janumet Ozempic Vitamin D Wellbutrin Medication List reviewed and reconciled with the patientTaking Atomoxetine HCl Taking metFORMIN HCl Taking Ciclopirox Olamine 0.77 % Cream 1 application to affected area Externally Twice a day to effected areas on feet Taking ARIPiprazole Taking Atorvastatin Calcium Taking Calcium Taking Lantus 100 UNIT/ML Solution as directed Subcutaneous Taking Janumet Taking Ozempic Taking Vitamin D Taking Wellbutrin Medication List reviewed and reconciled with the patient * Allergies:?Codeine with Tyle nol: sicknessyes[Allergies Verified] Objective: * Vitals:?Ht: 5ft 4in, Wt:146, BMI:25.06, Shoe size: 9.5, BS: not taken, Ht-cm: 162.56 cm, Wt-k.22 kg. * ???Past Orders: ???Lab:HEMOGLOBIN A1C (GLYCO HEMOGLOBIN) (Order Date - 02/28/2024) (Collection Date & Time - 02/28/2024 03:24 PM) ? Value Reference Range ?TOTAL HEMOGLOBIN (HGBA1C) 5.7 * Examination: ???Ophthalmology Referral: ?DIABETES EYE EXAM?Neurological: ?SENSORY:? Neurological exam demonstrates, reduced light touch sensation, reduced sharp/dull pin prick discrimination , B/L, 5.07 monofilament test performed at plantar aspects of 5 varied sites per foot shows sensation, reduced , B/L.?Nails: ?NAILS are:?Elongated, overgrown, dystrophic, lytic, greater than 3mm thick, discolored and friable with crumbly malodorous subungual debris, 1-5 B/L.?Dermatologic: ?SKIN FINDINGS:?Skin exam reveals Keratotic lesion(s) located at ,TA, T5, Sub met 1, 5 Heels B/L,? Skin shows sign(s) of, erythema, scaling, in a moccasin fashion, no fissure(s) present, B/L.?Vascular: ?DP PULSES(B):?3/4, B/L.?PT PULSES(B):?3/4, B/L.?CAPILLARY FILL TIME:?immediate, all digits, B/L.?TROPHIC CONDITION-TEXTURE/ELASTICITY/TURGOR/HAIR GROWTH(B):?normal, B/L.?TEMPERTURE GRADIENT(C):?normal, warm to cool, proximal to distal, B/L, B/L.?Orthopedic: ?MUSCLE STRENGTH:?5/5 all groups in a symmetrical fashion, B/L.?DIGITAL DEFORMITIES:?Digital contracture, PIPJ, 2-5 B/L, incompl-reducible to push-up test, no over, nor underlapping,?there is?evidence of shoe producing skin irritation.?FOOTWEAR:?worn, non-supportive, shoe gear properties exacerbate patient's foot/toe deformity.?General Examination: ?GENERAL APPEARANCE:?Reveals a pleasant, alert, well nourished, well- developed, well hydrated individual, who demonstrates proper attention to hygiene/body habitus, and is in no acute distress, Pt serves as own historian for office visit today.?ORIENTED:?person, place, and time.?FOOT EXAM:?Footwear Evaluation? Assessment: * Assessment: 1.?Type 2 diabetes mellitus with diabetic polyneuropathy - E11.42???2.?Tinea pedis of both feet - B35.3 (Primary)???Specify :Acute problem, Uncomplicated (3),Rx drug management (4)???3.?Tinea unguium - B35.1???4.?Other hammer toe(s) (acquired), right foot - M20.41???Specify :Chronic problem, Worse (4),Rx Management (4)???5.?Other hammer toe(s) (acquired), left foot - M20.42???Specify :Chronic problem, Worse (4),Rx Management (4)??? Plan: * Treatment: 2.?Other hammer toe(s) (acqu ired), right foot? Notes: Patient Educated with: DIABETIC FOOT CARE INSTRUCTIONS.pdf (DIABETIC FOOT CARE INSTRUCTIONS.pdf)?? * Procedures:?Debride Nail 6-10:?Nail debridement?Performance of this nail treatment by a nonprofessional would put this patients foot and overall health at risk. Therefore, debridement to affected nail(s), as described in exam, was performed extensively to reduce/remove overall nail length, girth, thickness, subungual debris, and necrotic tissue, by manual and/or electrical means through the use of a nail nipper and/or dremel-type cork grinder, to a more viable healthy nail plate or bed tissue 6-10 nails in total. Silver nitrate was used for any petechial bleeding as necessary. Definitive antifungal treatment options, both pharmaceutical and surgical, have been reviewed and discussed with the patient. The patient solely prefers the use of intermittent/as needed professional debridement services for their nail condition and understands the need for additional periodic treatments to maintain effectiveness in symptomatic relief - 88108.?Keratoma Treatment:?Parring or Cutting of Benign Hyperkeratotic Lesion(s)?(-57) More than 4 Lesions - The Benign hyperkeratotic lesions, ( 8 ) in total, locations as stated and described in exam, were pared, and/or cut utilizing a sterile 15 blade, tissue nippers, and/or power dremel instrumentation - 53408.? * Procedure Codes:?66391 DEBRI DE NAIL, 6 OR MORE, Modifiers: XS 93126 TRIM SKIN LESIONS, OVER 4, Modifiers: XS * Preventive Medicine:? ??Counseling:?Discussion:?-14: Office or other outpatient visit for the evaluation and management of an established patient, which required a medically appropriate history and/or examination and MODERATE level of DECISION MAKING for: 1 OR MORE CHRONIC PROBLEM(S) THATS WORSENING, 2 STABLE CHRONIC PROBLEMS, A NEWLY DIAGNOSED PROBLEM WITH UNCERTAIN PROGNOSIS, AN ACUTE COMPLICATED INJURY WITH MULTIPLE TREATMENT OPTIONS, OR AN ACUTE PROBLEM WITH ACCOMPANYING SYSTEMIC SYMPTOMS, THAT POSE(S) A MODERATE RISK OF MORBIDITY. THIS CONDITION MAY ALSO INCLUDE RX DRUG MANAGEMENT, OR A DECISON FOR MINOR SURGERY. The visit on the day of the encounter encompassed interpreting the data and educating the patient as to the nature of their condition, treatment options available according to their individual PMH, meds, allergies, and overall health/living conditions, as well as any potential risks or complications that may occur from a failure to adhere to, and participate in, the recommended course of therapy. The discussion included a complete verbal, and/or written explanation of the examination results, any x-rays taken, the proposed diagnosis, and outline of the treatment plan. A schedule for future care needs was also explained. The patient verbalized an understanding of the instructions at this time and agreed to be an active participant in their treatment. If the patient should think of any questions or concerns after the visit, I have encouraged the patient to call the office.?Digital Surgery:?Digital surgery was discussed with the patient, We elected to try conservative treatment at the present time, due to the patients medical history and increased asssociated post-operative risks.?Digital Treatment:?HT- I explained to the patient the possible etiologies of Hammertoes, including genetics/foot type/shoegear/activity level/exercise routine and the risks/benefits of all the different treatment options for their pain including: No treatment at all, Rest, Ice, New/supportive/wider/deeper Shoegear, Digital Padding/Strapping/Taping/Bracing/Gel protective sleeves, Foot/Ankle AFO Bracing, Stretching exercises, Deep Tissue Massage, Arch support/shoe inserts with splay metatarsal padding, and Custom orthoses. I insisted that any digital devices be removed daily and not worn overnight for safety. The patient is to carefully examine the toes daily for any skin irritation while using any splinting or padding device. The advantages and disadvantages of each option were discussed and the patients questions re: shoegear, padding, custom vs prefabricated inserts, activity level, and consistency in home treatment regimens for optimal success were answered to their verbally confirmed satisfaction.?Shoe Gear Counseling:?SHOE Rx - The patient was counseled in great detail on their muscoloskeletal foot and toe deformities which coincided with the dermatological presentations visualized on exam. We discussed how their deformities put the integrity of their feet at risk for potential pedal complications which makes the accomidative diabetic shoes and cutomizable inserts medically necessary. We discussed the different shoe and insert treatment types and options, as well as the important advantages for adhering to regularly wearing these accomidative devices daily. The patient was made aware of the fact that a failure to abide by these recommedations may be deleterious to their foot health as they are able to prevent many pedal complications such as skin irritation, skin ulceration, infection, and even loss of toe/foot/leg/or life. Time was also spent with the patient dispensing and discussing proper diabetic footcare techniques including daily skin moisturization, daily foot inspection for any interruption in skin integrity including open lesions, or sign of infection such as redness/malodor/drainage/swelling. Also discussed and recommended were procedures regarding daily shoe inspection for the presence of internal foreign bodies as well as any visualized irregular shoe or insert wear. Patient questions re: shoes, inserts, and self foot inspections were answered to their satisfaction as the patient verbally confirmed a full understanding of the above information., The patient deferred recommended diabetic shoes with heat moled inserts.?Tinea Pedis:?The patient was counseled on the diagnosis, potential etiologies, and treatment options for their skin condition. We discussed the risks and benefits of each option from performing no treatment, to utilizing OTC topical skin creams, prescription topical creams, customized compounded topical medications, and, if necessary, to utilize oral antifungal therapy. We discussed the advantages and disadvantages of each possible treatment and importance for adherence to all the recommended therapies for optimum success and avoid potential complications such as open sore/infection/possible hospitalization. We discussed the potential effectiveness of each topical preparation as well as each ones possible side effects and/or patient medication interactions if oral therapy is selected. Patient questions re: the advantages and disadvantages of each treatment choice, medication use/dosage, successful outcomes, and application consistency were reviewed and the patient verbalized that all answers were clearly understood. The patient was told they can help alleviate symptoms by utilizing moisture absorbant innersoles with activated charcoal and baking soda, applying antifungal sprays daily, aerating toe web spaces at night by putting cotton or lambs wool between the toes, alternating shoe gear daily if possible so they can dry out, changing socks at least once during the day, wearing well-ventilated shoes or sandals. The patient has decided to apply antifungal skin creams to their feet as directed. Rx was sent to their pharmacy at the time of visit.? * Follow Up:?2 Months * Images: * Sign off status: Completed true * Provider:?Ludivina Villar DPM Date:?07/2023 Generated for Saulo gamboa/Nico/Kaur on:?04/07/2024 03:10 PM EST History and Physical Notes * HPI (History of Present Illness) Category Sub-Category Detail Notes Category Not es Toe pain Location: B/L feet Duration: several years Course: worse Aggravated by: shoes, any pressure Treatments: change in shoes Skin problems Nature: scaling , redness Location: B/L Duration: several days Course: worse At Risk footcare Pt States Last PCP Visit: Date: 4 Examination Category Sub-Category Detail Notes Category Not es Neurological SENSORY: Neurological exa m demonstrates, reduced light touch sensation, reduced sharp/dull pin prick discrimination , B/L, 5.07 monofilament test performed at plantar aspects of 5 varied sites per foot shows sensation, reduced , B/L Dermatologic SKIN FINDINGS: Skin exam reveal s Keratotic lesion(s) located at ,TA, T5, Sub met 1, 5 Heels B/L, Skin shows sign(s) of, erythema, scaling, in a moccasin fashion, no fissure(s) present, B/L Orthopedic FOOTWEAR: worn, non-suppor tive, shoe gear properties exacerbate patient's foot/toe deformity DIGITAL DEFORMITIES: Digital contracture , PIPJ, 2-5 B/L, incompl-reducible to push-up test, no over, nor underlapping, there is evidence of shoe producing skin irritation MUSCLE STRENGTH: 5/5 all groups in a symmetrical fashion, B/L General Examination GENERAL APPEARANCE: Reveals a pleasant, alert, well nourished, well-developed, well hydrated individual, who demonstrates proper attention to hygiene/body habitus, and is in no acute distress, Pt serves as own historian for office visit today FOOT EXAM: Lower Extremity Neurological Exa m performed:: Yes ORIENTED: person, place, and t soumya Footwear Evaluation Footwear Evaluation performe d:: Yes Ophthalmology Referral DIABETES EYE EXAM Procedure Perform ed:: Yes ?Date of Exam Performed: 04/29/2023 Findings of Diabetic Eye Exam:: no retin opathy Vascular DP PULSES(B): 3/4, B/L PT PULSES(B): 3/4, B/L CAPILLARY FILL TIME: immediate, all digi ts, B/L TEMPERTURE GRADIENT(C): normal, warm to cool, proximal to distal, B/L, B/L TROPHIC CONDITION-TEXTURE/ELASTICITY/TURGOR/HAIR GROWTH(B): normal, B/L Nails NAILS are: Elongated, overg rown, dystrophic, lytic, greater than 3mm thick, discolored and friable with crumbly malodorous subungual debris, 1-5 B/L
--- OUTSIDE RECORDS SUMMARY | 2024-04-07 15:11 | XMS_ITS ---
Author Organization [facility] Address [address] [place] [address] Care Team Providers Care Aircraft Parts Assembler Name Role Phone Clara LAL, Orin Primary Care Provider Unavail Brad Carey Unavailable [phone] REASON FOR VISIT No Show Encounters Encounter Location Date Provider Diagnosis [address] [address] 10/17/2022 Brad Huynh Plan Of Treatment Next Appt Details Provider Name:Ludivina lechuga, 06/24/2024 11:15:00 AM, [address] [place], [address], Progress Notes * Sydney TREADWELLDOB:[birth year] (62 yo F)Acc No.[id number]:10/17/2022 Patient:?Sydney Treadwell :1960???Age:62 Y???Sex:Female Address:[address] [place], [place] [address], [address] * true * Date:? Generated for Toddi cooper/Nico/eTransmitting on:?04/07/2024 03:10 PM EST
--- OUTSIDE RECORDS SUMMARY | 2024-04-07 15:11 | XMS_ITS ---
Author Organization [facility] Address [address] [place] [address] Care Team Providers Care Wire Drawing Machine Operator Name Role Phone Clara LAL, Orin Primary Care Provider Unavail Brad Carey Unavailable [phone] Medications Medication SIG (Take, Route, Frequency, Duration) Notes Start Date End Date Status Ozempic Active Vitamin D Active Wellbutrin Active Lantus 100 UNIT/ML as directed Subcutaneous Active Janumet Active Calcium Active Ciclopirox Olamine 0.77 % 1 application to affected area Externally Twice a day to effected areas on feet for 30 days Active ARIPiprazole Active Atorvastatin Calcium Active Encounters Encounter Location Date Provider Diagnosis [facility] [address] [place] [address] 10/17/2022 Brad Huynh Type 1 diabetes mellitus with diabetic polyneuropathy E10.42 ; Pain in right toe(s) M79.674 ; Tinea unguium B35.1 ; Pain in left toe(s) M79.675 ; Ingrowing nail L60.0 ; Skin disease L98.9 and Tinea pedis B35.3 Assessments Encounter Date Diagnosis (ICD Code) Assessment Notes Treatment Notes Treatment Clinical Notes Section Notes 10/17/2022 Type 1 diabetes mellitus with diabetic polyneuropathy (ICD-10 - E10.42) 10/17/2022 Pain in right toe(s) (ICD-10 - M79.674) 10/17/2022 Tinea unguium (ICD-10 - B35.1) 10/17/2022 Pain in left toe(s) (ICD-10 - M79.675) 10/17/2022 Ingrowing nail (ICD-10 - L60.0) 10/17/2022 Skin disease (ICD-10 - L98.9) 10/17/2022 Tinea pedis (ICD-10 - B35.3) Plan Of Treatment Medication Medication Name Sig Start Date Stop Date Notes Ciclopirox Olamine 0.77 % 1 application to affected area Externally Twice a day to effected areas on feet for 30 days Next Appt Details Follow Up: 3 Months, Reason: Provider Name:Ludivina lechuga, 06/24/2024 11:15:00 AM, [address] [place] [address], [id number], Procedure Notes * Category Sub-Category Detail Notes Debride Nail 6-10 Nail debridement Nail debridem ent performed extensively to reduce/remove overall nail length and girth, subungual debris, and necrotic tissue, by manual and electrical means with use of a nail nipper and/or dremel, to more viable healthy nail plate or bed tissue 6-10. Silver nitrate used for any petechial bleeding as necessary. Patient chooses, no pharmaceutical tx (45709) Keratoma Treatment Parring or Cutting o f Benign Hyperkeratotic Lesion(s) 36092 ( >4 Lesions) - The Benign hyperkeratotic lesions, as described above were pared, and/or cut utilizing a sterile #15 blade, tissue nippers, and/or dremel Progress Notes * Sydney TREADWE[birth year]DOB:[birth year] (63 yo F)Acc No.[id number]:10/17/2022 Progress Note Patient:?Sydney TREADWELL Provider:?Brad Huynh DPM :1960???Age:62 Y???Sex:Female D ate:10/17/2022 Address:[address] [place], [place] [id number] Pcp:Orin Elizabeth MD Subjective: * Chief Complaints: * ??? * HPI: ???At Risk footcare:?Pt States Last PCP Visit:?Date?03/07/2022 ???Skin problems:?Nature:?dryness, tender, itching.?Location:?B/L .?Duration:?several years.?Onset/Cause:?unknown.?Course:?worsened, intermittent.?Aggravated by:?no aggrevating factors.?Treatments:?Topical antifungal--partial compliance.?Severity/Quality:?moderate.? * ROS:?General/Constitutional:?Nausea?denies.?Vomiting?denies.?Hunger Thirst?denies.?Loss appetite?denies.?Chills?denies.?Fatigue?denies.?Fever?denies.?Night Sweats?denies.?Unexplained weight loss?denies.?Unexplained weight gain?denies.?HEENTM:?Dentures?admits.?Dizziness?denies.?Glasses/contacts?admits.?Retinopathy?ad mits.?Blurred/double vision?denies.?TMJ?admits.?Discharge/drainage?denies.?Implants?denies.?Sore throat?denies.?Dental implants?denies.?Hard of hearing ?denies.?Difficulty chewing/swallowing/speaking?denies.?Nose bleeds?denies.?Sore mouth?denies.?Respiratory:?On Oxygen?denies.?Pneumonia/pleurisy?denies.?Bronchitis?denies.?Emphysema?denies.?C oughing?denies.?Cough blood?denies.?Shortness of breath?denies.?Wheezing?denies.?Cardiovascular:?Pacemaker?denies.?MVP?denies.?WPW?denies.?CHF?denies.?Heart attack?denies.?Septal defect?denies.?Rapid beat?denies.?Chest pain ?denies.?Atrial Fib.?denies.?Murmur/Palpitations?denies.?Gastrointestinal:?Hemorrhoids?denies.?Stomach/Abdominal pain?denies.?Dark blood stool?denies.?Irritable bowel ?denies.?Constipation?denies.?Diarrhea?denies.?Hematology:?Swelling?denies.?Clots?denies.?Varicose Veins?denies.?Bruising?denies.?Bleeding problem?denies.?Genitourinary:?Blood urine?denies.?Frequent/Painfu/urination/bladder control?admits.?Kidney stones?denies.?Infection (UTI)?denies.?Nephropathy?denies.?sex trans dis (STD)?denies.?Prostate?denies.?Musculoskeletal:?Hammertoes?denies.?Bunions?denies.?Back Pain?admits.?Muscle Cramps/ Resting?admits.?Muscle cramps / walking?admits.?Generalized aches and pains?admits.?Weakness?admits.?Integ.:?Flood?denies.?Scars?denies.?Corns/calluses?denies.?Ingrown nails?denies.?Painful nails?denies.?Open Sores?denies.?Rashes?denies.?Neurologic:?Difficulty sleeping?admits.?Brain disorder?denies.?Numbness?denies.?Balance trouble?denies.?Confusion?denies.?Fainting/blackouts?denies.?Tingling?denies.?Tr emors?denies.? * Medical History:? * Medications:?Taking Ciclopir ox Olamine 0.77 % Cream 1 application to affected area Externally Twice a day to effected areas on feet , Taking ARIPiprazole , Taking Atorvastatin Calcium , Taking Calcium , Taking Lantus 100 UNIT/ML Solution as directed Subcutaneous , Taking Janumet , Taking Ozempic , Taking Vitamin D , Taking Wellbutrin Objective: * Vitals:? * Examination: ???Ophthalmology Referral: ?DIABETES EYE EXAM?Neurological: ?SENSORY:? Neurological exam demonstrates, reduced vibration sensation, 5.07 monofilament test performed at plantar aspects of 5 varied sites per foot shows sensation, reduced , B/L, at Forefoot.?Vascular: ?DP PULSES(B):? 05/02, B/L.?PT PULSES(B):? /, B/L.?CAPILLARY FILL TIME:?3 secs. per digit. B/L.?TROPHIC CONDITION-TEXTURE/ELASTICITY/TURGOR/HAIR GROWTH(B):?normal, B/L.?TEMPERTURE GRADIENT(C):?normal, B/L.?PIGMENTATION:?normal, B/L.?EDEMA(C):?absent, B/L.?TELANGECTASIA:?absent, B/L.?Nails: ?NAILS are:? Elongated, overgrown, dystrophic, lytic, greater than 3mm thick, discolored and friable with crumbly malodorous subungual debris, with dull to no pain on palpation due to neuropathy, 1-5 B/L.?Dermatologic: ?SKIN FINDINGS:? Skin exam reveals Keratotic lesion(s) located at, SUB MTH (s), 1, 3, 5, Midfoot, Heel(s), B/L , Skin shows sign(s) of, dryness, scaling, in a stocking fashion, no fissure(s) present, B/L, Skin shows sign(s) of, erythema, scaling, in a moccasin fashion, no fissure(s) present, B/L.?General Examination: ?GENERAL APPEARANCE:?pleasant, alert, well nourished, well developed, well hydrated, with good attention to hygene/body habitus, and in no acute distress.?ORIENTED:?person,place, and time.?FOOT EXAM:?Orthopedic: ?MUSCLE STRENGTH:?5/5 all groups in a symmetrical fashion , B/L.? Assessment: * Assessment: 1.?Type 1 diabetes mellitus with diabetic polyneuropathy - E10.42???2.?Pain in right toe(s) - M79.674???3.?Tinea unguium - B35.1 (Primary)???4.?Pain in left toe(s) - M79.675???5.?Ingrowing nail - L60.0?? 6.?Skin disease - L98.9???7.?Tinea pedis - B35.3??? Plan: * Treatment: * Procedures:?Debride Nail 6-10:?Nail debridement?Nail debridement performed extensively to reduce/remove overall nail length and girth, subungual debris, and necrotic tissue, by manual and electrical means with use of a nail nipper and/or dremel, to more viable healthy nail plate or bed tissue 6-10. Silver nitrate used for any petechial bleeding as necessary. Patient chooses, no pharmaceutical tx (69995).?Keratoma Treatment:?Parring or Cutting of Benign Hyperkeratotic Lesion(s)?61008 ( >4 Lesions) - The Benign hyperkeratotic lesions, as described above were pared, and/or cut utilizing a sterile #15 blade, tissue nippers, and/or dremel.? * Procedure Codes:?51308 TRIM SKIN LESIONS, OVER 4, Modifiers: XS , 97005 DEBRIDE NAIL, 6 OR MORE, Modifiers: XS * Follow Up:?3 Months * Images: * The named appointment provid er may or may not be the originator of this progress note, and it is not deemed complete until electronically signed by the appointment provider. Sign off status: Pending * Provider:?Brad Huynh DPM Date:? 023 Generated for Saulo gamboa/Faxing/eTransmitting on:?04/07/2024 03:10 PM EST History and Physical Notes * HPI (History of Present Illness) Category Sub-Category Detail Notes Category Not es Skin problems Nature: dryness, tender, itching Location: B/L Duration: several years Onset/Cause: unknown Course: worsened, intermitte nt Aggravated by: no aggrevating facto rs Treatments: Topical antifungal-- partial compliance Severity/Quality: moderate At Risk footcare Pt States Last PCP Visit: Date: 2 Examination Category Sub-Category Detail Notes Category Not es Neurological SENSORY: Neurological exa m demonstrates, reduced vibration sensation, 5.07 monofilament test performed at plantar aspects of 5 varied sites per foot shows sensation, reduced , B/L, at Forefoot Dermatologic SKIN FINDINGS: Skin exam reveal s Keratotic lesion(s) located at, SUB MTH (s), 1, 3, 5, Midfoot, Heel(s), B/L , Skin shows sign(s) of, dryness, scaling, in a stocking fashion, no fissure(s) present, B/L, Skin shows sign(s) of, erythema, scaling, in a moccasin fashion, no fissure(s) present, B/L Orthopedic MUSCLE STRENGTH: 5/5 all groups in a symmetrical fashion , B/L General Examination GENERAL APPEARANCE: pleasant , alert, well nourished, well developed, well hydrated, with good attention to hygene/body habitus, and in no acute distress FOOT EXAM: Lower Extremity Neurological Exa m performed:: Yes Visual exam of foot performed:: Yes Date: 09/06/2021 Sensory testing performed:: sensations d iminished Pedal pulse taking performed:: 1+ ORIENTED: person,place, and ti id Ophthalmology Referral DIABETES EYE EXAM Diabetic Reti nopathy Screening:: No 2019 Vascular DP PULSES(B): 1/4, B/L PT PULSES(B): 1/4, B/L CAPILLARY FILL TIME: 3 secs. per digit. B/L TEMPERTURE GRADIENT(C): normal, B/L TROPHIC CONDITION-TEXTURE/ELASTICITY/TUR GOR/HAIR GROWTH(B): normal, B/L EDEMA(C): absent, B/L TELANGECTASIA: absent, B/L PIGMENTATION: normal, B/L Nails NAILS are: Elongated, overg rown, dystrophic, lytic, greater than 3mm thick, discolored and friable with crumbly malodorous subungual debris, with dull to no pain on palpation due to neuropathy, 1-5 B/L
--- OUTSIDE RECORDS SUMMARY | 2024-04-07 15:11 | XMS_ITS | Patient Health Record ---
Author Organization [facility] Address [address] [place] [address] Care Team Providers Care Heavy Machinery Assembler Name Role Phone Clara LAL, Orin Primary Care Provider Unavail able Brad Huynh Unavailable [phone] Ludivina Villar Unavailable [phone] Allergies Allergen (clinical drug ingredient) Drug/Non Drug Allergy documented on EMR Reaction Allergy Type Onset Date Status acetaminophen / codeine Codeine with Tyl enol (uncoded) sickness Allergy Active Results Component Value Reference Range Notes HEMOGLOBIN A1C (GLYCOHEMOGLO BIN) Reviewed date:04/01/2024 03:24:46 PM Interpretation: Performing Lab: Notes/Report: TOTAL HEMOGLOBIN (HGBA1C) 5.7 Reason For Referral No Information Medications Medication SIG (Take, Route, Frequency, Duration) Notes Start Date End Date Status Atomoxetine HCl Acti ve metFORMIN HCl Active Vitamin D Active Wellbutrin Active Janumet Active Ozempic Active Ciclopirox Olamine 0.77 % 1 application Externally Twice a day to skin of feet including between the toes for 30 days Active Calcium Active Lantus 100 UNIT/ML as directed Subcutaneous Active ARIPiprazole Active Atorvastatin Calcium Active Ciclopirox Olamine 0.77 % 1 application to affected area Externally Twice a day to effected areas on feet for 30 days Active Immunizations Vaccine Route Administration Date Status Comme nts COVID-19 Moderna Vaccine Unknown 01/29/2022 Administered 2020,2020 2020,2021 unsure dates Influenza Unknown 01/27/2022 Administered Social History Tobacco Use: Social History Observation [...] Problem Acquired hammer toe of right foot (5098577312803774 ) Other hammer toe(s) (acquired), right foot (M20.41) Active confirmed Problem Acquired hammer toe of left foot (5639890075571974 ) Other hammer toe(s) (acquired), left foot (M20.42) Active confirmed Problem Polyneuropathy due to type 2 diabetes mellitus (500195321) Type 2 diabetes mellitus with diabetic polyneuropathy (E11.42) Active confirmed Problem Polyneuropathy due to diabetes mellitus type I (817783869) Type 1 diabetes mellitus with diabetic polyneuropathy (E10.42) Active confirmed Vital Signs Height 5ft 4in in 04/01/2024 Weight 146 lbs 04/01/2024 BMI 25.06 kg/m2 04/01/2024 Encounters Encounter Location Date Provider Diagnosis [facility] [address] [address] 04/01/2024 Ludivina Villar Type 2 diabetes mellitus [...] foot (ICD-10 - M20.42) Plan Of Treatment Pending Test Test Name Order Date [id number] NAIL, 6 OR MORE 12/06/2021 [id number] SKIN LESIONS, OVER 4 09/07/19 [id number] SKIN LESIONS, OVER 4 12/07/19 Next Appt Details Provider Name:Ludivina lechuga, 06/24/2024 11:15:00 AM, [address] [place], [address], Insurance Providers Payer Name Payer Address Payer Phone Subscriber Number Group Number Insured Name Patient Relationship to Insured Coverage Start Date Coverage End Date [facility] [employer] Claims [address] [place] [address] [id number] Sydney Treadwell Self - patient is the insured Medical (General) History Medical History History ICD Code Arthritis Back,Hip,and Knee pain CAD (Cholesterol) Cataracts Depression type II diabetes High blood pressure Macular degeneration Numbness Osteoporosis Mumps Chicken pox Surgical History Surgery Date(Month/Year) x2 06/1983,03/1986
== END 2024-03-31 15:21 | disposition home or self-care (01) ==
LOC: HO.MAMMO 15:20
PROVIDERS: PCP Internal Medicine; Visit Provider Internal Medicine
DX: Z12.31 Encounter for screening mammogram for malignant neoplasm of breast (principal)
CPT/HCPCS: 77063; 77067

== ENCOUNTER → 2024-03-31 15:30 | Outpatient (BNV) | payer OTHER, SELFPAY | PROVIDERS: PCP Internal Medicine; Visit Provider Internal Medicine | DX: Z12.31 Encounter for screening mammogram for malignant neoplasm of breast (principal) | CPT/HCPCS: 77063; 77067 ==

== ENCOUNTER 2024-05-19 13:08 | Outpatient (REF) | payer OTHER, SELFPAY ==
[2024-05-19 14:17] LABS: Appearance Urine Clear; Color Urine Dark Yellow; Glucose Urine UA Negative (Negative); Leukocyte Esterase Urine Small (1+) (Negative); Nitrite Urine Negative (Negative); PH 8.5 (5.0-9.0); Specific Gravity - Urine 1.025 (1.005-1.025); UMIC TRIGGER UACC YES; Urine Blood Negative (Negative); Urine Ketones Trace mg/dL (Negative); Urine Protein Trace mg/dL (Neg-Trace)
[2024-05-19 14:43] LABS: Bacteria Urine 2+ (None Seen); Hyaline Casts Urine 0-2 /LPF (0-2); RBC Urine 0-2 /HPF (0-2); Squamous Epithelial Cell Urine 0-2 /HPF (0-2); UACC Culture Trigger YES; WBC Urine 21-50 /HPF (0-5)
[2024-05-19 15:25] LABS: Creatinine Urine 131.68 mg/dL; Microalbum/Creatinine Ratio Ur 21.2 ug/mg cr (<30)
== END 2024-05-19 13:09 | disposition home or self-care (01) ==
LOC: HO.LAB 13:08
PROVIDERS: Absent Provider Student in an Organized Health Care Education/Training Program; PCP Internal Medicine; Visit Provider Internal Medicine
DX: E11.9 Type 2 diabetes mellitus without complications (principal); R30.0 Dysuria
CPT/HCPCS: 81001; 82043; 82570; 87086; 87088; 87186

== ENCOUNTER 2024-05-27 16:49 | Outpatient (AMB) | payer OTHER, SELFPAY ==
[2024-05-27 16:59] VITALS: BP 100/60; PULSE 99; TEMP 36.2; O2SAT 100; BMI 25.8
--- NOTE | 2024-05-27 16:59 | MHC.PC.OV ---
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 Required: No Accompanied by: Self / Same As Patient Allergies Victoza Allergy (Intermediate, Uncoded 05/27/24 17:19) nausea and vomiting Codeine Adverse Reaction (Intermediate, Uncoded 05/27/24 17:19) nausea Medication List - Last Reconciled 05/27/24 by Orin Can MD aripiprazole 5 mg PO DAILY 90 days atomoxetine 40 mg PO QAM 90 days atorvastatin 20 mg PO DAILY 90 days blood sugar diagnostic As directed blood sugar diagnostic (FreeStyle Lite Strips) As directed 4 times a day blood sugar diagnostic (FreeStyle Lite Strips) As directed 4 times a day blood-glucose meter (FreeStyle [place] Lite kit) As directed bupropion HCl XL 150 mg PO DAILY 90 days bupropion HCl XL 300 mg PO DAILY 90 days calcium carbonate (Oyster Shell Calcium) 500 mg PO DAILY 90 days cholecalciferol (vitamin D3) 50 mcg PO DAILY 90 days denosumab (Prolia) 60 mg subcut [id number] gabapentin 100 mg PO BEDTIME ibuprofen 800 mg PO Q8H PRN 30 days lancets As directed lisinopril 10 mg PO DAILY 90 days metformin ER 500 mg PO BID ondansetron 8 mg PO Q12H PRN 5 days pen needle, diabetic (BD Ultra-Fine Nora Pen Needle) 1 ea subcut DAILY 90 days semaglutide (Ozempic) 0.5 mg (0.736 mL) subcut QWEEK 90 days sulfamethoxazole-trimethoprim 800-160 mg (Bactrim DS) 1 tab PO BID 3 days tobramycin 0.3% 1 drp ophthalmic (eye) Q4H 7 days Tobacco use date assessed: 05/27/24 Fall risk assessment: No Falls in past year Last assessed Fall Risk: 05/27/24 Dental Screening Dental Screen Date: 05/27/24 Did you have a dental visit in the last 12 months?: Yes Did you have a dental problem in the last 6 months where you did not have access to dental care?: No Was dental information given to patient?: Patient has dentist HPI HPI Comments History of Present Illness Details The patient is a 63-year-old female presenting with nausea and vomiting. These symptoms began approximately six or seven months ago and have primarily been associated with activities involving bending forward, such as gardening and cleaning. Initially, the patient experienced nausea that progressed to vomiting on multiple occasions, suggesting a consistent pattern. The patient has tried reducing activity levels to manage symptoms, without success. No previous visits to a patient services rep have been noted. The patient reports that the nausea and vomiting could be related to her use of Semaglutide (Ozempic), a medication she has been on for a while, but has not yet consulted specialists in this regard. Constipation is another issue that has been present for about the same duration, yet no attempts to manage it have been addressed in the current conversation. There is no mention of any other related symptoms, including difficulty swallowing or abdominal pain. She also has diabetes mellitus type 2 well controlled with metformin and Ozempic. A1c of 5% today and I will decrease metformin to once a day. 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 Hypertension well controlled with lisinopril. Has hyperlipidemia and lipid panel will be ordered. Her LDL goal should be less than 70. Denies any chest pain or shortness on breath. Mild major depression and ADHD as well as anxiety and insomnia are well controlled with medications and follow by Psychiatry. She also has osteoporosis diagnosed from DEXA scan in 2022 on Prolia and follow by Rheumatology. 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 Daughter Breast cancer, Onset Age: 38 Social History Household Members: None Housing: Apartment Alcohol intake: never Patient Tobacco Use Status: Former Tobacco user Tobacco use type: Cigarette e-Cigarette/Vaping Use: Never Used Second Hand Smoke Exposure: No service: No Current occupational status: unemployed Cognitive needs: No Hearing needs: No Vision needs: No Questionnaire PHQ-9 Over the last 2 weeks, how often have you been bothered by any of the following problems? 1. Little interest or pleasure in doing things: not at all 2. Feeling down, depressed, or hopeless: not at all 3. Trouble falling or staying asleep, or sleeping too much: not at all 4. Feeling tired or having little energy: not at all 5. Poor appetite or overeating: not at all 6. Feeling bad about yourself - or that you are a failure or have let yourself or your family down: not at all 7. Trouble concentrating on things, such as reading the newspaper or watching television: not at all 8. Moving or speaking so slowly that other people could have noticed. Or the opposite - being so fidgety or restless that you have been moving around a lot more than usual: not at all 9. Thoughts that you would be better off or of hurting yourself in some way: not at all Total score: 0 Depression Screening Interpretation: Negative Depression Screening Done: Yes 94489 - PHQ-9 Billing: Yes Source: Developed by Drs. Antwan Hunt, Melissa Xiong, Kevin Gutierrez and colleagues, with an educational romulo from [employer]. Thrive Questionnaire Date Thrive assessed: 05/27/24 I am a: Patient What is your living situation today?: I have a steady place to live Within the past 12 months, did the food you bought not last and you didn't have the money to get more?: Never true Within the past 12 months, did you worry whether your food would run out before you got money to buy more?: Never true Do you have trouble paying for medicines?: No Do you have trouble getting transportation to medical appointments?: No Do you have trouble paying your heating and electricity bill?: No Do you have trouble taking care of your child, family member or friend?: No Do you have trouble with day-to-day activities such as bathing, preparing meals, shopping, managing finances, etc.?: No Are you currently unemployed and looking for a job?: No Are you interested in more education?: No Please select the resources that you would like help with: None Currently or been in a relationship where the following occur: No concerns reported THRIVE Score: 0 AUDIT C Alcohol Use Questionnaire (AUDIT-C) 1. How often do you have a drink containing alcohol?: Never 3. How often do you have six or more drinks on one occasion?: Never Total Score: 0 KYA-7 AMB Questionnaire KYA-7 Date KYA - 7 assessed: 05/27/24 Feeling nervous, anxious, or on edge: 0 = Not at all Not being able to stop or control worryin = Not at all Worrying too much about different things: 0 = Not at all Trouble relaxin = Not at all Being so restless that it is hard to sit still: 0 = Not at all Becoming easily annoyed or irritable: 0 = Not at all Feeling afraid as if something awful might happen: 0 = Not at all Total KYA-7 score (0-4 normal; 5-9 mild; 10-14 moderate; 15-21 severe): 0 Source: Developed by Drs. Antwan Hunt, Melissa Xiong, Kevin Gutierrez and colleagues, with an educational romulo from [employer]. KYA-7 Assessment Billing KYA-7 Assessment Tool: KYA-7 Assessment 98253 Review of Systems Const All systems reviewed & are unremarkable except as noted in HPI and below Card Denies chest pain at rest, Denies chest pain with activity, Denies edema, Denies irregular heart rhythm, Denies claudication, Denies dyspnea, Denies dyspnea on exertion, Denies orthopnea, Denies paroxysmal nocturnal dyspnea and Denies slow heart rate Resp Denies cough, Denies dyspnea and Denies dyspnea on exertion GI Denies abdominal pain, Denies change in bowel habits, Denies excessive flatus, Denies nausea and Denies vomiting Physical exam (Primary Care) Vital Signs: Last Vital Signs Temp 97.1 F 05/27/24 16:59 Pulse 99 05/27/24 16:59 BP 100/60 05/27/24 16:59 Pulse Ox 100 05/27/24 16:59 Oxygen Delivery Method Room Air 05/27/24 16:59 BMI result Body Mass Index 25.8 Tobacco/Smoking Status: Tobacco use Status Tobacco use date assessed 05/27/24 05/27/24 17:05 Patient Tobacco Use Status Former Tobacco user 05/27/24 17:05 Tobacco use type Cigarette 05/27/24 17:05 e-Cigarette/Vaping Use Never Used 05/27/24 17:05 PHQ-9: PHQ-9 Score PHQ-9: Total score 0 05/27/24 17:25 Depression Screening Interpretation: Negative Thrive Assessment: Date of Thrive Assessment Date Thrive assessed 05/27/24 05/27/24 17:05 Currently or been in a relationship where the following occur: No concerns reported Resp Effort & Inspection: normal respiratory effort Auscultation: clear to auscultation bilaterally Cardio Jugular venous distension: no JVD Rate: regular rate Rhythm: regular rhythm Heart sounds: S1 normal heart sound present and S2 normal heart sound present GI Inspection: Yes normal to inspection Palpation (GI): Soft to palpation and nontender Auscultation: normal bowel sounds Extrem General: Yes full ROM Results AMB Hemoglobin A1c AMB Hemoglobin A1c 5.0 % Last Edit by ERIKA Moreno on 05/27/24 17:15 Results Reviewed Results Reviewed: Laboratory Last Values Hgb A1c (Clinic) 5.0 % (4.0-6.0) 05/27/24 17:05 Coding Level of Care Code Est Pt Level 4 (06048) Complex EM visit Add On G2211 Diagnoses Controlled type 2 diabetes mellitus without complication, with long-term current use of insulin E11.9; Z79.4 Diabetes mellitus complication status: without complication Diabetes mellitus custodial insulin use: with custodial use Persistent recurrent vomiting R11.15 Mild recurrent major depression F33.0 Essential hypertension I10 Hypertension type: essential hypertension Dyslipidemia E78.5 Age-related osteoporosis without current pathological fracture M81.0 Osteoporosis type: age-related Presence of current pathological fracture: without current pathological fracture Additional Codes KYA-7 Assessment Billing - KYA-7 Assessment Tool: KYA-7 Assessment 58899 ([id number]) PHQ-9 - 44579 - PHQ-9 Billing: Yes ([id number]) Time Spent (min) 22 Assessment & Plan Assessment & Plan (1) Diabetes type 2, controlled: Code(s): E11.9 - Type 2 diabetes mellitus without complications Category: Medical Qualifiers: Diabetes mellitus complication status: without complication Diabetes mellitus termite treater helper insulin use: with termite treater helper use Qualified Code(s): E11.9 - Type 2 diabetes mellitus without complications; Z79.4 - terminal 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 up 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 (2) Persistent recurrent vomiting: Code(s): R11.15 - Cyclical vomiting syndrome unrelated to migraine Category: Medical (3) Mild recurrent major depression: Code(s): F33.0 - Major depressive disorder, recurrent, mild Category: Medical (4) Hypertension: Code(s): I10 - Essential (primary) hypertension Category: Medical Qualifiers: Hypertension type: essential hypertension Qualified Code(s): I10 - Essential (primary) hypertension (5) Dyslipidemia: Code(s): E78.5 - Hyperlipidemia, unspecified Category: Medical (6) Osteoporosis: Comment: Medication History: Prolia (denosumab) 60mg qmth - Started 05/2023 - Second dose: 12/2023 Code(s): M81.0 - Age-related osteoporosis without current pathological fracture Category: Medical Qualifiers: Osteoporosis type: age-related Presence of current pathological fracture: without current pathological fracture Qualified Code(s): M81.0 - Age-related osteoporosis without current pathological fracture Plan - Follow up on medication allergies (Victoza and Codeine) and ensure they are recorded correctly in the medical chart. - Keep A1c within goal. BP within goal. LDL goal is less than 70. - Refer to gastroenterology for her recurrent vomiting. Patient was informed and verbally consented to the use of an ambient scribe for clinic note documentation during this visit. During this visit, we discussed the persistence of the patient?s nausea and vomiting symptoms, and I recommended a referral to gastroenterology to further evaluate these symptoms. While Semaglutide (Ozempic) has been beneficial for the control of diabetes, it is being considered as a contributing factor to these symptoms; hence specialist input is necessary. The patient's blood glucose management is effective, with an A1c of 5%, enabling the adjustment of Metformin dosing. I emphasized continuing with current medications and routine check-ups with rheumatology for osteoporosis. We also reviewed the patient's allergies to Victoza and Codeine. Finally, preventive measures and the need for follow-up visits for any escalation of symptoms were discussed. Orders: Orders Microalbumin, Random (w Creat) 6 Months R80.9 - Proteinuria, unspecified Vitamin D 25-OH Total 6 Months E55.9 - Vitamin D deficiency, unspecified Comprehensive [place]. Panel Fast 6 Months E11.9 - Type 2 diabetes mellitus without complications, Z79.4 - [facility] (current) use of insulin Thyroid Stimulating Hormone 6 Months E06.3 - Autoimmune thyroiditis AMB Hemoglobin A1c Today E11.9 - Type 2 diabetes mellitus without complications, Z79.4 - [facility] (current) use of insulin Lipid Panel 6 Months E78.5 - Hyperlipidemia, unspecified Free T4 (Free Thyroxine) 6 Months E06.3 - Autoimmune thyroiditis Referrals Gastroenterology Referral R11.15 - Cyclical vomiting syndrome unrelated to migraine Medications: New metformin ER 500 mg PO DAILY 90 days 90 tabs 1RF E11.9 - Type 2 diabetes mellitus without complications, Z79.4 - [facility] (current) use of insulin Patient Instructions: - Follow up with gastroenterology as scheduled for further evaluation. - Take Metformin as prescribed, once daily. - Notify the clinic if symptoms worsen or persist before the gastroenterology appointment. - Adhere to current medication regimen and monitor for any side effects. - Maintain a log of activities that trigger nausea or vomiting. - Seek immediate care if experiencing severe abdominal pain or prolonged constipation.
== END 2024-05-27 17:29 | disposition home or self-care (01) ==
PROVIDERS: PCP Internal Medicine; Visit Provider Internal Medicine
DX: E11.9 Type 2 diabetes mellitus without complications (principal); Z79.4 Long term (current) use of insulin; R11.15 Cyclical vomiting syndrome unrelated to migraine; F33.0 Major depressive disorder, recurrent, mild; I10 Essential (primary) hypertension; E78.5 Hyperlipidemia, unspecified; M81.0 Age-related osteoporosis without current pathological fracture

== ENCOUNTER → 2024-05-27 16:49 | Outpatient (BNVA) | payer OTHER, SELFPAY | PROVIDERS: PCP Internal Medicine; Visit Provider Internal Medicine | DX: E11.9 Type 2 diabetes mellitus without complications (principal); R11.15 Cyclical vomiting syndrome unrelated to migraine; F33.0 Major depressive disorder, recurrent, mild; I10 Essential (primary) hypertension; E78.5 Hyperlipidemia, unspecified; M81.0 Age-related osteoporosis without current pathological fracture; R80.9 Proteinuria, unspecified; E55.9 Vitamin D deficiency, unspecified; E06.3 Autoimmune thyroiditis; Z79.4 Long term (current) use of insulin; Z87.891 Personal history of nicotine dependence; Z79.84 Long term (current) use of oral hypoglycemic drugs; Z79.899 Other long term (current) drug therapy | CPT/HCPCS: 83036; 96127; 99212 ==

== ENCOUNTER 2024-06-16 10:40 | Outpatient (REF) | payer OTHER, SELFPAY ==
--- NOTE | ~2024-06-16 | XR_ITS ---
CLINICAL HISTORY: M25.512 - Pain in left shoulder Left shoulder three views Comparison: None Findings: No acute fracture or dislocation identified. Degenerative change glenohumeral and AC joints. No radiopaque foreign body noted. Impression: No acute bony abnormality This document has been electronically signed by: Edmar Jackson MD on 06/16/2024 19:07:49
--- NOTE | ~2024-06-16 | XR_ITS ---
CLINICAL HISTORY: R07.81 - Pleurodynia Radiographs of the left ribs Comparison: CR - XR SHOULDER LT MIN 2V - 06/16/24 12:11 EST CR - XR CHEST 2V - 06/16/24 12:05 EST Findings: No rib fracture or other acute osseous abnormality. Normal heart size. Normal mediastinal contours. No pneumothorax. No opacity. No pleural effusion. Normal upper abdomen. Impression: No rib fracture. This document has been electronically signed by: Shelia Cheek MD on 06/16/2024 14:48:13
--- NOTE | ~2024-06-16 | XR_ITS ---
CLINICAL HISTORY: R07.9 - Chest pain, unspecified 2 view chest x-ray Comparison: None Findings: No consolidation or effusion. Heart size is normal. No acute fracture. IMPRESSION: 1. No acute findings. This document has been electronically signed by: Toña Krishnamurthy MD on 06/17/2024 06:22:30
== END 2024-06-16 10:41 | disposition home or self-care (01) ==
LOC: HO.XRAY 10:40
PROVIDERS: PCP Internal Medicine; Visit Provider Internal Medicine
DX: R07.81 Pleurodynia (principal); M25.512 Pain in left shoulder; R07.82 Intercostal pain; M81.0 Age-related osteoporosis without current pathological fracture; F33.0 Major depressive disorder, recurrent, mild; E11.9 Type 2 diabetes mellitus without complications; I10 Essential (primary) hypertension; Z79.4 Long term (current) use of insulin
CPT/HCPCS: 71046; 71100; 73030; 99212

== ENCOUNTER 2024-06-16 10:40 | Outpatient (AMB) | payer OTHER, SELFPAY ==
--- NOTE | 2024-06-16 10:54 | A.OFFPC_ITS ---
Vital Signs 06/16/24 10:56 Height 5 ft 5 in Weight 155 lb 3.992 oz BMI 25.8 BP 128/70 Blood Pressure Location Lt brachial Position Sitting Intake Visit Reasons: Left side rib pain/fell [employer] Skills Required: No Accompanied by: Self / Same As Patient Allergies Victoza Allergy (Intermediate, Uncoded 06/16/24 11:08) nausea and vomiting Codeine Adverse Reaction (Intermediate, Uncoded 06/16/24 11:08) nausea Medication List - Last Reconciled 06/16/24 by Orin Can MD aripiprazole 5 mg PO DAILY 90 days atomoxetine 40 mg PO QAM 90 days atorvastatin 20 mg PO DAILY 90 days blood sugar diagnostic As directed blood sugar diagnostic (FreeStyle Lite Strips) As directed 4 times a day blood sugar diagnostic (FreeStyle Lite Strips) Use 1 test strip once a day blood-glucose meter (FreeStyle [place] Lite kit) As directed bupropion HCl XL 150 mg PO DAILY 90 days bupropion HCl XL 300 mg PO DAILY 90 days calcium carbonate (Oyster Shell Calcium) 500 mg PO DAILY 90 days cholecalciferol (vitamin D3) 50 mcg PO DAILY 90 days denosumab (Prolia) 60 mg subcut [id number] gabapentin 100 mg PO BEDTIME ibuprofen 800 mg PO Q8H PRN 30 days lancets As directed lisinopril 10 mg PO DAILY 90 days metformin ER 500 mg PO BID 90 days ondansetron 8 mg PO Q12H PRN 5 days pen needle, diabetic (BD Ultra-Fine [place]ora Pen Needle) 1 ea subcut DAILY 90 days semaglutide (Ozempic) 0.5 mg (0.736 mL) subcut QWEEK 90 days tobramycin 0.3% 1 drp ophthalmic (eye) Q4H 7 days Tobacco use date assessed: 05/27/24 Fall risk assessment: 1 Fall in past year Last assessed Fall Risk: 06/16/24 Dental Screening Dental Screen Date: 05/27/24 HPI HPI Comments History of Present Illness Details The patient is a 64-year-old female presenting with fall-related injury and subsequent chest wall pain. The incident occurred on the previous Saturday when the patient slipped on black ice, resulting in a fall. She reported hitting her head on the asphalt and landing on her side, with the front part of her head being affected. Initial pain was noted in the left side of the chest. The pain has been described as excruciating at times, particularly when moving her arm in certain directions. The patient has been self-medicating with Advil; however, she experienced a significant increase in pain intensity when she ran out several times. The pain was described as spasmodic and not consistently linked to any movements. She reports no loss of consciousness or current bruising, and mentions intermittent pain in the left shoulder. History of osteoporosis managed with Prolia injections every six months and elevated cholesterol treated with atorvastatin was also discussed. She has a background of depression and anxiety, which are being monitored by psychiatry and stated as currently stable. She also has diabetes mellitus type 2 well controlled with an A1c within goal. [facility] Medical History (Updated 06/16/24 @ 12:22 by Orin Can MD) Mild recurrent major depression B12 deficiency Jaime's disease Dyslipidemia Hypertension Diabetic polyneuropathy associated with type 2 diabetes mellitus snf (current) use of insulin Diabetes type 2, controlled Surgical History Hx of section Family History Father Raynaud's syndrome without gangrene Mother No problems noted. Daughter Breast cancer, Onset Age: 38 Social History Household Members: None Housing: Apartment Alcohol intake: never Patient Tobacco Use Status: Former Tobacco user Tobacco use type: Cigarette e-Cigarette/Vaping Use: Never Used Second Hand Smoke Exposure: No service: No Current occupational status: unemployed Cognitive needs: No Hearing needs: No Vision needs: No Questionnaire Thrive Questionnaire Date Thrive assessed: 05/27/24 KYA-7 AMB Questionnaire KYA-7 Date KYA - 7 assessed: 05/27/24 Source: Developed by Drs. Antwan Hunt, Melissa Xiong, Kevin Gutierrez and colleagues, with an educational romulo from [employer]. Review of Systems Const All systems reviewed & are unremarkable except as noted in HPI and below Card Denies chest pain at rest, Denies chest pain with activity, Denies edema, Denies irregular heart rhythm, Denies claudication, Denies dyspnea, Denies dyspnea on exertion, Denies orthopnea, Denies paroxysmal nocturnal dyspnea and Denies slow heart rate Resp Denies cough, Denies dyspnea and Denies dyspnea on exertion GI Denies abdominal pain, Denies change in bowel habits, Denies excessive flatus, Denies nausea and Denies vomiting Musc Denies atrophy, Denies deformity and Denies limited range of motion Physical exam (Primary Care) Vital Signs: Last Vital Signs BP 128/70 06/16/24 10:56 BMI result Body Mass Index 25.8 Tobacco/Smoking Status: Tobacco use Status Tobacco use date assessed 05/27/24 06/16/24 11:01 Patient Tobacco Use Status Former Tobacco user 06/16/24 11:01 Tobacco use type Cigarette 06/16/24 11:01 e-Cigarette/Vaping Use Never Used 06/16/24 11:01 Thrive Assessment: Date of Thrive Assessment Date Thrive assessed 05/27/24 06/16/24 11:01 Resp Effort & Inspection: normal respiratory effort Auscultation: clear to auscultation bilaterally Cardio Jugular venous distension: no JVD Rate: regular rate Rhythm: regular rhythm Heart sounds: S1 normal heart sound present and S2 normal heart sound present Extrem General: Yes full ROM Coding Level of Care Code Est Pt Level 4 (92050) Complex EM visit Add On G2211 Diagnoses Acute pain of left shoulder M25.512 Chronicity: acute Rib pain R07.81 Intercostal pain R07.82 Chest pain type: intercostal pain Age-related osteoporosis without current pathological fracture M81.0 Osteoporosis type: age-related Presence of current pathological fracture: without current pathological fracture Mild recurrent major depression F33.0 Controlled type 2 diabetes mellitus without complication, with long-term current use of insulin E11.9; Z79.4 Diabetes mellitus prison insulin use: with prison use Diabetes mellitus complication status: without complication Essential hypertension I10 Hypertension type: essential hypertension Time Spent (min) 22 Assessment & Plan Assessment & Plan (1) Left shoulder pain: Code(s): M25.512 - Pain in left shoulder Category: Medical Qualifiers: Chronicity: acute Qualified Code(s): M25.512 - Pain in left shoulder (2) Rib pain: Code(s): R07.81 - Pleurodynia Category: Medical (3) Chest pain: Code(s): R07.9 - Chest pain, unspecified Category: Medical Qualifiers: Chest pain type: intercostal pain Qualified Code(s): R07.82 - Intercostal pain (4) Osteoporosis: Comment: Medication History: Prolia (denosumab) 60mg qmth - Started 05/2023 - Second dose: 12/2023 Code(s): M81.0 - Age-related osteoporosis without current pathological fracture Category: Medical Qualifiers: Osteoporosis type: age-related Presence of current pathological fracture: without current pathological fracture Qualified Code(s): M81.0 - Age- related osteoporosis without current pathological fracture (5) Mild recurrent major depression: Code(s): F33.0 - Major depressive disorder, recurrent, mild Category: Medical (6) Diabetes type 2, controlled: Code(s): E11.9 - Type 2 diabetes mellitus without complications Category: Medical Qualifiers: Diabetes mellitus prison insulin use: with account support associate use Diabetes mellitus complication status: without complication Qualified Code(s): E11.9 - Type 2 diabetes mellitus without complications; Z79.4 - snf (current) use of insulin (7) Hypertension: Code(s): I10 - Essential (primary) hypertension Category: Medical Qualifiers: Hypertension type: essential hypertension Qualified Code(s): I10 - Essential (primary) hypertension Plan - Conduct x-rays of the head, left shoulder, and rib cage to assess for fractures or other injuries. - Continue Advil ibuprofen) for pain management as needed, recommended three times daily. - Monitor for worsening symptoms or any signs of complications. - Regular follow-ups for osteoporosis and hyperlipidemia management. Patient was informed and verbally consented to the use of an ambient scribe for clinic note documentation during this visit. I explained to the patient that an x-ray would be conducted to assess for possible fractures following her fall. We discussed the need for adequate pain control with Advil, particularly focusing on a consistent medication routine to manage her chest pain effectively. I emphasized the importance of monitoring for any changes in symptoms and advised her to be cautious with physical activity as she recuperates. Additionally, I reassured the patient on the current stability of her depression and anxiety management, as well as her ongoing care for osteoporosis and hyperlipidemia. Orders: Orders XR ribs LT 2V Today R07.81 - Pleurodynia XR chest 2V Today R07.9 - Chest pain, unspecified XR shoulder LT min 2V Today M25.512 - Pain in left shoulder Patient Instructions: - Take Advil three times daily as needed for pain. - Avoid activities that could exacerbate pain or risk further injury, especially in icy areas. - Attend scheduled appointments for x-rays and follow-up visits. - Seek immediate medical attention if symptoms worsen, such as increased pain, difficulty breathing, or changes in consciousness. - Maintain regular psychiatric follow-up for depression and anxiety.
[2024-06-16 10:56] VITALS: BP 128/70; BMI 25.8
== END 2024-06-16 11:18 | disposition home or self-care (01) ==
PROVIDERS: PCP Internal Medicine; Visit Provider Internal Medicine
DX: M25.512 Pain in left shoulder (principal); R07.81 Pleurodynia; R07.82 Intercostal pain; M81.0 Age-related osteoporosis without current pathological fracture; F33.0 Major depressive disorder, recurrent, mild; E11.9 Type 2 diabetes mellitus without complications; Z79.4 Long term (current) use of insulin; I10 Essential (primary) hypertension

== ENCOUNTER → 2024-06-16 11:43 | Outpatient (BNV) | payer OTHER, SELFPAY | PROVIDERS: PCP Internal Medicine; Visit Provider Radiology Diagnostic Radiology | DX: R07.9 Chest pain, unspecified (principal) | CPT/HCPCS: 71046; 71100; 73030 ==

== ENCOUNTER 2024-07-28 08:49 | Outpatient (AMB) | payer OTHER, SELFPAY ==
--- NOTE | 2024-07-28 08:54 | A.OFFVIS_ITS ---
Vital Signs 07/28/24 09:02 Height 5 ft 5 in Weight 163 lb 5.8 oz BMI 27.2 BP 112/62 Blood Pressure Location Lt brachial Position Sitting Pulse 85 Pulse Source Pulse Oximeter Pulse Oximetry (%) 99 Oxygen Delivery Method Room Air Intake Visit Reasons: follow up Osteoporosis/prolia inj Intake Note: Patient presents today for Osteoporosis/Prolia injection. Allergies Victoza Allergy (Intermediate, Uncoded 06/16/24 11:08) nausea and vomiting Codeine Adverse Reaction (Intermediate, Uncoded 06/16/24 11:08) nausea Medication List - Last Reconciled 07/28/24 by Cassie Xie MD aripiprazole 5 mg PO DAILY 90 days atomoxetine 40 mg PO QAM 90 days atorvastatin 20 mg PO DAILY 90 days blood sugar diagnostic As directed blood sugar diagnostic (FreeStyle Lite Strips) As directed 4 times a day blood sugar diagnostic (FreeStyle Lite Strips) Use 1 test strip once a day blood-glucose meter (FreeStyle [place] Lite kit) As directed bupropion HCl XL 150 mg PO DAILY 90 days bupropion HCl XL 300 mg PO DAILY 90 days calcium carbonate (Oyster Shell Calcium) 500 mg PO DAILY 90 days cholecalciferol (vitamin D3) 50 mcg PO DAILY 90 days denosumab (Prolia) 60 mg subcut [id number] gabapentin 100 mg PO BEDTIME ibuprofen 800 mg PO Q8H PRN 30 days lancets As directed lisinopril 10 mg PO DAILY 90 days metformin ER 1,000 mg PO BID ondansetron 8 mg PO Q12H PRN 5 days pen needle, diabetic (BD Ultra-Fine Nora Pen Needle) 1 ea subcut DAILY 90 days semaglutide (Ozempic) 0.5 mg (0.736 mL) subcut QWEEK 90 days tobramycin 0.3% 1 drp ophthalmic (eye) Q4H 7 days HPI Comments Details: Patient is a 62-year-old female with well-controlled diabetes and depression presents today for management of osteoporosis. Interval History: Patient last seen 01/24/24 with me. At that time patient was on Prolia for treatment of osteoporosis. Highest T-score -2.6 in the spine, -2.0 in the hip. Has been tolerating her injections fine. Received her 2nd dose at that visit Denied falls, bone pain, joint pain. She was referred to ENT for a diagnosis of presumed BPPV Did not follow up with ENT as she did not hear back from the office. Her positional vomiting has improved because she does not put her head in certain positions anymore but if she does the symptoms would recur. Had a fall on the ice but no fractures Rheumatologic History: Patient referred by PCP 05/2023 for the management of osteoporosis. DEXA scan done 03/2023 revealed osteoporosis in the spine. Evaluation for secondary causes of osteoporosis/osteomalacia unremarkable. Patient reports that she had a spine fracture 2 years ago. I do not have current evidence of that. I do see a lumbar x-ray that reports disc height loss but none that corroborates spine fracture. Medication History: Prolia (denosumab) 60mg qmth * Started 05/2023 * Second dose: 12/2023 * Third dose: 07/2024 Current Rheum Meds: Prolia 60mg SC every 6 months Vitamin D supplementation PFSH Medical History Mild recurrent major depression B12 deficiency Jaime's disease Dyslipidemia Hypertension Diabetic polyneuropathy associated with type 2 diabetes mellitus long-term (current) use of insulin Diabetes type 2, controlled Surgical History Hx of section Family History Father Raynaud's syndrome without gangrene Mother No problems noted. Daughter Breast cancer, Onset Age: 38 Social History Household Members: None Housing: Apartment Alcohol intake: never Patient Tobacco Use Status: Former Tobacco user Tobacco use type: Cigarette e-Cigarette/Vaping Use: Never Used Second Hand Smoke Exposure: No service: No Current occupational status: unemployed Cognitive needs: No Hearing needs: No Vision needs: No Review of Systems Const Details: Review of Systems Constitutional: Denies fever, chills, weight loss ENT: Denies vision changes, eye pain or eye redness, dental caries, dry mouth GI: Denies nausea, vomiting, diarrhea, abdominal pain, change in BM Pulm: Denies SOB, RICHTER, hemoptysis, wheezing Cards: Denies chest pain, palpitations Skin: Denies Raynaud's, rash, nail changes, photosensitivity, PASSENGER SCREENER: Denies headaches, weakness, paresthesias, recurrent falls MSK: as per HPI All other systems reviewed and are unremarkable except noted above Physical Exam Vital Signs: Last Vital Signs Pulse 85 07/28/24 09:02 BP 112/62 07/28/24 09:02 Pulse Ox 99 07/28/24 09:02 Oxygen Delivery Method Room Air 07/28/24 09:02 BMI result Body Mass Index 27.2 Vital signs reviewed Physical Examination CONSTITUITIONAL Patient alert and cooperative. Well appearing and in no apparent painful distress HEENT Conjunctiva and sclera clear. ?Pupils equal round and reactive to light. ?No lymphadenopathy. ? CHEST/RESPIRATORY SYSTEM Normal respiratory effort and able to speak in complete sentences. ?Clear to auscultation bilaterally. ?No crackles, rales, rhonchi, wheezes heard. CARDIAC SYSTEM Regular rate and rhythm. ?S1 and S2 heard no murmurs. ?Radial pulses intact bilaterally MSK Hands: ?Good spring crater strength bilaterally. No deformities noted. ?No synovitis note d to the MCPs, PIPs or DIPs. ?No tenderness to palpation of these joints. Wrists: ?Full range of motion at the wrists without pain. ?No tenderness to palpation or synovitis noted to the wrists. Elbows: Full range of motion without pain. No tenderness, weakness, swelling, increased warmth or erythema. Shoulders: Full range of motion without pain. No tenderness, weakness, swelling, increased warmth or erythema. Hips: Full range of motion without pain. Hip bursa: No tenderness to palpation Knees: ?Full range of motion. ?No tenderness, swelling, increased warmth or erythema.?No effusion or crepitations Ankles: Full range of motion. ?No tenderness, swelling, increased warmth or erythema.? Feet: ?Negative squeeze test. ?No tenderness to palpation or swelling of the MTPs. Tender points:?No tenderness to palpation of the bilateral trapezius, supraspinatus, greater trochanters, anterior costochondral junctions, bilateral gluteal areas, bilateral suboccipital muscle insertions SKIN Skin intact without rashes. Office Meds Prolia 60 mg/mL subcutaneous syringe Performing Provider: Cassie Xie MD Performing Location: [facility] Rheumatology Administered by: Cassie Xie MD on 07/28/24 09:28 Dose Route Admin Location Dispensed Lot Number Expiration Date NDC [employer] 60 mg subcut left abdominal wall 1 mL [id number] 10/26/26 30321-606-76 AMGEN Results Reviewed Results Reviewed: Laboratory Tests 01/09/24 03/05/24 07:13 11:34 Sodium 140 Potassium 4.3 Chloride 104 Carbon Dioxide 28 BUN 17 H Creatinine 0.83 Calcium 10.5 H D AST 16 ALT 16 Alkaline Phosphatase 32 L 25-OH Vitamin D Total 75.9 71.2 DEXA 03/2023 FINDINGS: LEFT FEMUR, NECK: Current: BMD 0.755 g/cm2, Z-score -0.6, T-score -2.0, osteopenia. Baseline: BMD 0.757 g/cm2. LEFT FEMUR, TOTAL: Current: BMD 0.781 g/cm2, Z-score -0.6, T-score -1.8, osteopenia, 8.3% decrease from baseline (<5% change is not significant). Baseline: BMD 0.852 g/cm2. AP SPINE L1-L4: Current: BMD 0.868 g/cm2, Z-score -1.0, T-score -2.6, osteoporosis, 7.3% decrease from baseline (<5% change is not significant). Baseline: BMD 0.936 g/cm2. Assessment & Plan Assessment & Plan (1) Osteoporosis: Comment: DEXA 03/2023: AP Spine -2.6, Left femur neck -2.0, Left femur total -1.8 Medication History: Prolia (denosumab) 60mg qmth - Started 05/2023 - Second dose: 12/2023 - Third dose: 07/2023 Code(s): M81.0 - Age-related osteoporosis without current pathological fracture Category: Medical Qualifiers: Osteoporosis type: age-related Presence of current pathological fracture: without current pathological fracture Qualified Code(s): M81.0 - Age- related osteoporosis without current pathological fracture Plan: #Osteoporosis Patient is a 64-year-old female with osteoporosis without current pathological fracture. She is here today for her 3rd dose of Prolia. Bone density 04/17/2023 shows lowest T-score-2.6 at the AP spine. Vitamin-D at goal at the last check. Plan - Prolia 60mg SC every 6 months - Repeat DEXA 03/2025 - RTC 6 months - Labs before visit: CBC, CMP, ESR, CRP, vitamin D (2) BPPV (benign paroxysmal positional vertigo): Code(s): H81.10 - Benign paroxysmal vertigo, unspecified ear Qualifiers: Laterality: unspecified laterality Qualified Code(s): H81.10 - Benign paroxysmal vertigo, unspecified ear Plan: #Suspected BPPV Patient with suspected BPPV with positional vertigo and vomiting. Referred her to ENT Plan - no referral placed (3) Long-term current use of bisphosphonate: Code(s): Z79.83 - terminal supervisor (current) use of bisphosphonates Plan: Long-term use of Denosumab Discussed with patient the risks and benefits of denosumab (Prolia) for the management of their osteoporosis Benefits include improved bone density and decrease risk of fracture Risks include rapid bone loss if denosumab stopped, osteonecrosis of the jaw especially in patients with poor oral hygiene/diabetes/use of glucocorticoids/age greater than 65 years, atypical femoral fractures, injection site reactions Patient was advised that if they plan to stop denosumab would need to continue antiresorptive to maintain the effects of denosumab Plan I spent 25 minutes reviewing the record and labs, seeing the patient, discussing with other providers and documenting in the medical record Orders: Orders Comprehensive Met. Panel 6 Months Cassie Xie MD E55.9 - Vitamin D deficiency, unspecified, M81.0 - Age-related osteoporosis without current pathological fracture C Reactive Protein 6 Months Cassie Xie MD E55.9 - Vitamin D deficiency, unspecified, M81.0 - Age-related osteoporosis without current pathological fracture Erythrocyte Sedimentation Rate 6 Months Cassie Xie MD E55.9 - Vitamin D deficiency, unspecified, M81.0 - Age-related osteoporosis without current pathological fracture Complete Blood Count Auto Diff 6 Months Cassie Xie MD E55.9 - Vitamin D deficiency, unspecified, M81.0 - Age-related osteoporosis without current pathological fracture Vitamin D 25-OH (D2 and D3) 6 Months Cassie Xie MD E55.9 - Vitamin D deficiency, unspecified, M81.0 - Age-related osteoporosis without current pathological fracture AMB Denosumab Injection Practice Supplied Today Cassie Xie MD M81.0 - Age- related osteoporosis without current pathological fracture Medications: New Prolia (denosumab) 60 mg subcut ONCE 1 mL 0RF NS Cassie Xie MD M81.0 - Age- related osteoporosis without current pathological fracture Changed From metformin ER 500 mg PO BID 90 days 180 tabs 1RF E11.9 - Type 2 diabetes mellitus without complications, Z79.4 - terminal supervisor (current) use of insulin To metformin ER 1,000 mg PO BID E11.9 - Type 2 diabetes mellitus without complications, Z79.4 - long-term (current) use of insulin Orin Can MD Coding Level of Care Code Est Pt Level 3 (69716) Complex EM visit Add On G2211 Diagnoses Age-related osteoporosis without current pathological fracture M81.0 Osteoporosis type: age-related Presence of current pathological fracture: without current pathological fracture Benign paroxysmal positional vertigo, unspecified laterality H81.10 Laterality: unspecified laterality Long-term current use of bisphosphonate Z79.83
[2024-07-28 09:02] VITALS: BP 112/62; PULSE 85; O2SAT 99; BMI 27.2
--- OUTSIDE RECORDS SUMMARY | 2024-07-28 09:19 | XMS_ITS ---
Author [facility] Address [address] [facility] [place] [address] Care Team Providers Care Thermostat Mechanic Name Role Phone Clara LAL, Orin Primary Care Provider Unavail able Lino Brad Unavailable [phone] Ludivina Villar Unavailable [phone] Allergies Allergen (clinical drug ingredient) Drug/Non Drug [...] Problem Acquired hammer toe of right foot (6046399273345 105) Other hammer toe(s) (acquired), right foot (M20.41) Active confirmed Problem Acquired hammer toe of left foot (1695835432717 103) Other hammer toe(s) (acquired), left foot (M20.42) Active confirmed Vital Signs Height 5ft 4in in 04/01/2024 Weight 146 lbs 04/01/2024 BMI 25.06 kg/m2 04/01/2024 Encounters Encounter Location Date Provider Diagnosis [facility] [place] [address] [place] [address] 04/01/2024 Ludivina Villar Type 2 diabetes mellitus [...] Up: 2 Months, Reason: Provider Name:Ludivina lechuga, 09/18/2024 10:00:00 AM, [address] [place], [address], Procedure Notes * Category Sub-Category Detail Notes [...] use of a nail nipper and/or dremel-type grinder set up operator thread, to a more viable healthy nail plate [...] to maintain effectiveness in symptomatic relief - 84784 Keratoma Treatment Parring or Cutting o f Benign Hyperkeratotic Lesion(s) (-57) More than 4 Lesions - The Benign hyperkeratotic lesions, ( 8 ) in total, locations as stated and described in exam, were pared, and/or cut utilizing a sterile 15 blade, tissue nippers, and/or power dremel instrumentation - 84355 Progress Notes * Sydney TREADWE[birth year]DOB:[birth year] (63 yo F)Acc No.[id number]:04/01/2024 Progress Note Patient:?Sydney TREADWELL Provider:?Ludivina Villar DPM :1960???Age:63 Y???Sex:Female D ate:04/01/2024 Address:[address] [place] [address] [id number] Pcp:Orin Elizabeth MD Subjective: * Chief Complaints: [...] and pains?admits.?Weakness?admits.?Integ.:?Flood?denies.?Scars?denies.?Corns/calluses?denies.?Ingrown nails?denies.?Painful nails?denies.?Open Sores?denies.?Rashes?denies.?Neurologic:?Difficulty sleeping?admits.?Brain disorder?denies.?Numbness?denies.?Balance t rouble?denies.?Confusion?denies.?Fainting/blackouts?denies.?Tingling?denies.?Antoine [...] 5.7 * Examination: ???Ophthalmology Referral: ?DIABETES EYE EXAM?Procedure Performed:?Yes ?Date of Exam Performed?04/29/2023 ?Findings of Diabetic Eye Exam:?no retinopathy?Neurological: ?SENSORY:? Neurological exam demonstrates, reduced light touch [...] for office visit today.?ORIENTED:?person, place, and time.?FOOT EXAM:?Lower Extremity Neurological Exam performed:?Yes ?Footwear Evaluation?Footwear Evaluation performed:?Yes??? Assessment: * Assessment: 1.?Type 2 diabetes mellitus [...] use of a nail nipper and/or dremel-type grinder set up operator thread, to a more viable healthy nail plate [...] to maintain effectiveness in symptomatic relief - 18300.?Keratoma Treatment:?Parring or Cutting of Benign Hyperkeratotic Lesion(s)?(-57) More than 4 Lesions - The Benign hyperkeratotic lesions, ( 8 ) in total, locations as stated and described in exam, were pared, and/or cut utilizing a sterile 15 blade, tissue nippers, and/or power dremel instrumentation - 79796.? * Procedure Codes:?38110 DEBRI DE NAIL, 6 OR MORE, Modifiers: XS 78322 TRIM SKIN LESIONS, OVER 4, Modifiers: XS [...] * Sign off status: Completed true * Provider:?ROSE MARY KateM Date:?07/2023 Generated for Saulo gamboa/Nioc/Kaur on:?07/28/2024 09:18 AM EDT History and Physical Notes * HPI (History of Present Illness) Category Sub-Category Detail Notes Category Not es Toe pain Location: B/L feet Duration: several years Course: worse Aggravated by: shoes, any pressure Treatments: change in shoes Skin problems Nature: scaling , redness Location: B/L Duration: several days Course: worse At Risk footcare Pt States Last PCP Visit: Date: Examination Category Sub-Category Detail Notes Category Not [...] moccasin fashion, no fissure(s) present, B/L Orthopedic FOOTWEAR EVALUATION: worn, non-s upportive, shoe gear properties exacerbate patient's foot/toe deformity [...] Eye Exam:: no retin opathy Vascular DP PULSES (B): 3/4, B/L PT PULSES (B): 3/4, B/L CAPILLARY FILL TIME: immediate, all digi ts, B/L TEMPERTURE GRADIENT (C): normal, warm to cool, proximal to distal, B/L, B/L TROPHIC CONDITION-TEXTURE/ELASTICITY/TURGOR/HAIR GROWTH (B): normal, B/L Nails NAILS are: Elongated, overg rown, dystrophic, lytic, greater than 3mm thick, discolored and friable with crumbly malodorous subungual debris, 1-5 B/L
--- OUTSIDE RECORDS SUMMARY | 2024-07-28 09:19 | XMS_ITS | Patient Health Record ---
Author Organization [facility] Address [address] [place] [address] Care Team Providers Care Medical Anthropologist Name Role Phone Calra LAL, Orin Primary Care Provider Unavail able Brad Huynh Unavailable [phone] JianAnanten Unavailable [phone] Allergies Allergen (clinical drug ingredient) Drug/Non Drug Allergy documented on EMR Reaction Allergy Type Onset Date Status acetaminophen / codeine Codeine with Tyl enol (uncoded) sickness Allergy Active Results Component Value Reference Range Notes HEMOGLOBIN A1C (GLYCOHEMOGLO BIN) Reviewed date:04/01/2024 03:24:46 PM Interpretation: Performing Lab: Notes/Report: TOTAL HEMOGLOBIN (HGBA1C) 5.7 HEMOGLOBIN A1C (GLYCOHEMOGLO BIN) Reviewed date:06/24/2024 11:22:02 AM Interpretation: Performing Lab: Notes/Report: HEMOGLOBIN A1C % (HH) 5.6 Reason For Referral No Information Medications Medication SIG (Take, Route, Frequency, Duration) Notes Start Date End Date Status Vitamin D Active Wellbutrin Active Ciclopirox Olamine 0.77 % APPLY ONE APPL ICATION EXTERNALLY TWICE DAILY TO SKIN OF FEET INCLUDING BETWEEN THE TOES for 30 Active Atomoxetine HCl Acti ve Lantus 100 UNIT/ML as directed Subcutaneous Active Janumet Active Ozempic Active metFORMIN HCl Active ARIPiprazole Active Atorvastatin Calcium Active Calcium Active Immunizations Vaccine Route Administration Date Status Comme nts COVID-19 Moderna Vaccine Unknown 01/29/2022 Administered 2020,2020 2020,2021 unsure dates Influenza Unknown 01/27/2022 Administered Social History Tobacco Use: Social History Observation Description Date Details (start date - stop date) Never Smoker NA - NA Alcohol Screen Question Answer Notes Did you have a drink containing alcohol in the p ast year? No Points 0 Interpretation Negative Tobacco use other than smoking: Question Answer Notes Are you an other tobacco user? No Tobacco Control (Standard) Question Answer Notes Tobacco use: Nonsmoker Problems Problem Type SNOMED Code ICD Code Onset Dates Problem Status W/U Status Risk Notes Problem Acquired hammer toe of right foot (2046526122213319 ) Other hammer toe(s) (acquired), right foot (M20.41) Active confirmed Problem Acquired hammer toe of left foot (8544794643620532 ) Other hammer toe(s) (acquired), left foot (M20.42) Active confirmed Problem Polyneuropathy due to type 2 diabetes mellitus (533286438) Type 2 diabetes mellitus with diabetic polyneuropathy (E11.42) Active confirmed Problem Polyneuropathy due to diabetes mellitus type I (354048036) Type 1 diabetes mellitus with diabetic polyneuropathy (E10.42) Active confirmed Vital Signs Blood pressure diastolic 80 mm Hg 06/24/2024 Height 5ft4in in 06/24/2024 Blood pressure systolic 120 mm Hg 06/24/2024 Weight 150 lbs 06/24/2024 BMI 25.74 kg/m2 06/24/2024 Encounters Encounter Location Date Provider Diagnosis [facility] [address] [address] 04/01/2024 Ludivina Villar Type 2 diabetes mellitus with diabetic polyneuropathy E11.42 ; Tinea pedis of both feet B35.3 ; Tinea unguium B35.1 ; Other hammer toe(s) (acquired), right foot M20.41 and Other hammer toe(s) (acquired), left foot M20.42 [facility] [address] [address] 06/24/2024 Ludivina Villar Tinea pedis of both feet B35.3 ; Other hammer toe(s) (acquired), left foot M20.42 ; Type 2 diabetes mellitus with diabetic polyneuropathy E11.42 ; Tinea unguium B35.1 ; Other hammer toe(s) (acquired), right foot M20.41 and Xerosis of skin L85.3 Assessments Encounter Date Diagnosis (ICD Code) Assessment Notes Treatment Notes Treatment Clinical Notes Section Notes 04/01/2024 Type 2 diabetes mellitus with diabetic polyneuropathy (ICD-10 - E11.42) 04/01/2024 Tinea pedis of both feet (ICD-10 - B35.3) 06/24/2024 Other hammer toe(s) (acquired), left foot (ICD-10 - M20.42) 06/24/2024 Tinea pedis of both feet (ICD-10 - B35.3) 06/24/2024 Type 2 diabetes mellitus with diabetic polyneuropathy (ICD-10 - E11.42) 04/01/2024 Tinea unguium (ICD-10 - B35.1) 04/01/2024 Other hammer toe(s) (acquired), right foot (ICD-10 - M20.41) Patient Educated with: DIABETIC FOOT CARE INSTRUCTIONS. pdf (DIABETIC FOOT CARE INSTRUCTIONS. pdf) 06/24/2024 Tinea unguium (ICD-10 - B35.1) 06/24/2024 Other hammer toe(s) (acquired), right foot (ICD-10 - M20.41) 04/01/2024 Other hammer toe(s) (acquired), left foot (ICD-10 - M20.42) 06/24/2024 Xerosis of skin (ICD-10 - L85.3) Plan Of Treatment Pending Test Test Name Order Date [id number] NAIL, 6 OR MORE 12/06/2021 [id number] SKIN LESIONS, OVER 4 09/07/19 22 [id number] SKIN LESIONS, OVER 4 12/07/19 Next Appt Details Provider Name:Ludivina lechuga, 09/18/2024 10:00:00 AM, [address] [place] [address], [place], [address], Insurance Providers Payer Name Payer Address Payer Phone Subscriber Number Group Number Insured Name Patient Relationship to Insured Coverage Start Date Coverage End Date [facility] [employer] Claims [address] [place] [address] [phone] [id number] Sydney Treadwell Self - patient is the insured Medical (General) History Medical History History ICD Code Arthritis Back,Hip,and Knee pain CAD (Cholesterol) Cataracts Depression type II diabetes High blood pressure Macular degeneration Numbness Osteoporosis Mumps Chicken pox Surgical History Surgery Date(Month/Year) x2 06/1983,03/1986
--- OUTSIDE RECORDS SUMMARY | 2024-07-28 09:19 | XMS_ITS ---
Author Organization [facility] Address [address] [place] [address] Care Team Providers Care Ram Press Operator Name Role Phone Clara LAL, Orin Primary Care Provider Unavail able Huynh Brad Unavailable [phone] Ludivina Villar Unavailable [phone] Allergies Allergen (clinical drug ingredient) Drug/Non Drug Allergy documented on EMR Reaction Allergy Type Onset Date Status acetaminophen / codeine Codeine with Tyl enol (uncoded) sickness Allergy Active REASON FOR VISIT At Risk Footcare, Skin Problem, Toe Irritation Medications Medication SIG (Take, Route, Frequency, Duration) Notes Start Date End Date Status Atomoxetine HCl Acti ve metFORMIN HCl Active ARIPiprazole Active Atorvastatin Calcium Active Calcium Active Vitamin D Active Wellbutrin Active Ciclopirox Olamine 0.77 % APPLY ONE APPL ICATION EXTERNALLY TWICE DAILY TO SKIN OF FEET INCLUDING BETWEEN THE TOES for 30 Active Janumet Active Ozempic Active Lantus 100 UNIT/ML as directed Subcutaneous Active Social History Tobacco Use: Social History Observation Description Date Details (start date - stop date) Never Smoker NA - NA Tobacco use other than smoking: Question Answer Notes Are you an other tobacco user? No Tobacco Control (Standard) Question Answer Notes Tobacco use: Nonsmoker Vital Signs Height 5ft4in in 06/24/2024 Weight 150 lbs 06/24/2024 BMI 25.74 kg/m2 06/24/2024 Blood pressure systolic 120 mm Hg 06/24/19 25 Blood pressure diastolic 80 mm Hg 025 Encounters Encounter Location Date Provider Diagnosis [facility] [address] [place] [address] 06/24/2024 Ludivina Villar Tinea pedis of both feet B35.3 ; Other hammer toe(s) (acquired), left foot M20.42 ; Type 2 diabetes mellitus with diabetic polyneuropathy E11.42 ; Tinea unguium B35.1 ; Other hammer toe(s) (acquired), right foot M20.41 and Xerosis of skin L85.3 Assessments Encounter Date Diagnosis (ICD Code) Assessment Notes Treatment Notes Treatment Clinical Notes Section Notes 06/24/2024 Tinea pedis of both feet (ICD-10 - B35.3) 06/24/2024 Other hammer toe(s) (acquired), left foot (ICD-10 - M20.42) 06/24/2024 Type 2 diabetes mellitus with diabetic polyneuropathy (ICD-10 - E11.42) 06/24/2024 Tinea unguium (ICD-10 - B35.1) 06/24/2024 Other hammer toe(s) (acquired), right foot (ICD-10 - M20.41) 06/24/2024 Xerosis of skin (ICD-10 - L85.3) Plan Of Treatment Next Appt Details Follow Up: 2 Months, Reason: Provider Name:Ludivina lechuga, 09/18/2024 10:00:00 AM, [address] [place] [address], [address], Procedure Notes * Category Sub-Category Detail Notes Debride Nail 6-10 Nail debridement Due to the cl inical pathology outlined in the exam findings, performance of this nail treatment is medically necessary as its management by an unskilled/untrained nonprofessional would put this patients foot and overall health at risk. Therefore, debridement to affected nail(s), as described in exam ( TA, T1, T2, T3, T4, T5, T6, T7, T8, T9, ), was performed exclusively by the physician of record to reduce/remove overall nail length, girth, thickness, subungual debris, and necrotic tissue, by manual and/or electrical means through the use of a nail nipper and/or dremel-type sausage grinder, to a more viable healthy nail [...] to maintain effectiveness in symptomatic relief - 58463 Keratoma Treatment Parring or Cutting o f Benign Hyperkeratotic Lesion(s) (-57) More than 4 Lesions - Due to the at risk nature of the patients medical condition as documented in the exam findings, performance of this keratoderma treatment is medically necessary as its management by an unskilled/untrained nonprofessional would put this patients foot and overall health at risk. Therefore, the benign hyperkeratotic lesions, ( 8 ) in total, locations as stated and described in the exam ( TA, T5, Sub met 1, 5 Heels B/L), were pared, and/or cut utilizing a sterile 15 blade, tissue nippers, and/or power dremel instrumentation by the physician of record - 20231 Progress Notes * Sydney TREADWE[birth year]DOB:[birth year] (64 yo F)Acc No.[id number]:06/24/2024 Progress Note Patient:?Khushbu TREADWELLKarly Provider:?Ludivina Villar DPM :1960???Age:64 Y???Sex:Female D ate:06/24/2024 Address:[address] [place], [place] [id number] Pcp:Orin Elizabeth MD Subjective: * Chief Complaints: * ???At Risk FootcareSkin Prob lemToe Irritation * HPI: ???At Risk footcare:?Pt States Last PCP Visit:?Date?03/17/2024 ???Skin problems:?Nature:?scaling , redness.?Location:?B/L .?Duration:?several months.?Course:?worse.?Treatments:?admits nonadherence to recommended application.?Toe pain:?Location:?, 2nd toe, Left foot.?Duration:?several years.?Course:?worse.?Aggravated by:?shoes, any pressure.?Treatments:?change in shoes.? * [...] Diabetic - NIDDM.? * Social History:?Tobacco Use:?Tobacco use other than smoking?Are you an other tobacco user??No ?Tobacco Control (Standard)?Tobacco use:?Nonsmoker ???Miscellaneous:?Caffeine: no, 2-4 cups per day. ?Children: yes, 2. ?Exercise: yes, gardening/yard work. ?Marital status: . ?Occupation: N/A. * Medications:?TakingAtomoxeti ne HCl metFORMIN HCl ARIPiprazole Atorvastatin Calcium Calcium Lantus 100 UNIT/ML Solution as directed Subcutaneous Janumet Ozempic Vitamin D Wellbutrin Ciclopirox Olamine 0.77 % Cream APPLY ONE APPLICATION EXTERNALLY TWICE DAILY TO SKIN OF FEET INCLUDING BETWEEN THE TOES Medication List reviewed and reconciled with the patientTaking Atomoxetine HCl Taking metFORMIN HCl Taking ARIPiprazole Taking Atorvastatin Calcium Taking Calcium Taking Lantus 100 UNIT/ML Solution as directed Subcutaneous Taking Janumet Taking Ozempic Taking Vitamin D Taking Wellbutrin Taking Ciclopirox Olamine 0.77 % Cream APPLY ONE APPLICATION EXTERNALLY TWICE DAILY TO SKIN OF FEET INCLUDING BETWEEN THE TOES Medication List reviewed and reconciled with the patient * Allergies:?Codeine with Tyle nol: sicknessyes[Allergies Verified] Objective: * Vitals:?Ht: 5ft4in, Wt:150, BMI:25.74, Shoe size: 9.5, BP:120/80mm Hg, BS: 89, Ht-cm: 162.56 cm, Wt-k.04 kg. * ???Past Orders: ???Lab:HEMOGLOBIN A1C (GLYCO HEMOGLOBIN) (Order Date - 04/29/2024) (Collection Date & Time - 04/29/2024 11:21 AM) ? Value Reference Range ?HEMOGLOBIN A1C % (HH) 5.6 * Examination: ???Ophthalmology Referral: ?DIABETES EYE EXAM?Procedure Performed:?Yes ?Date of Exam Performed?10/28/2023 ?Findings of Diabetic Eye Exam:?no retinopathy?Neurological: ?SENSORY:? Neurological exam demonstrates, reduced light touch sensation, reduced sharp/dull pin prick discrimination , B/L, 5.07 monofilament test performed at plantar aspects of 5 varied sites per foot shows sensation, reduced , B/L.?Nails: ?NAILS are:?Elongated, overgrown, dystrophic, lytic, greater than 3mm thick, discolored and friable with crumbly malodorous subungual debris,, TA, T1, T2, T3, T4, T5, T6, T7, T8, T9.?Dermatologic: ?SKIN FINDINGS:?Skin exam reveals Keratotic lesion(s) located at ,TA, T5, Sub met 1, 5 Heels B/L, Skin STILL, shows sign(s) of, erythema, scaling, in a moccasin fashion, no fissure(s) present, B/L, Skin shows sign(s) of, dryness, scaling, in a stocking fashion, with heel fissure(s) present, B/L, no signs of infection.?Vascular: ?DP PULSES (B):?3/4, B/L.?PT PULSES (B):?3/4, B/L.?CAPILLARY FILL TIME:?immediate, all digits, B/L.?TROPHIC CONDITION-TEXTURE/ELASTICITY/TURGOR/HAIR GROWTH (B):?normal, B/L.?TEMPERTURE GRADIENT (C):?normal, warm to cool, proximal to distal, B/L, B/L.?PIGMENTATION:?normal, B/L.?Orthopedic: ?MUSCLE STRENGTH:?5/5 all groups in a symmetrical fashion, B/L.?DIGITAL DEFORMITIES:?Digital contracture, PIPJ, 2-5 B/L, incompl-reducible to push-up test, no over, nor underlapping, there is evidence of shoe producing skin irritation , T1.?FOOTWEAR:?worn, non-supportive, shoe gear properties exacerbate patient's foot/toe deformity.?General Examination: ?GENERAL APPEARANCE:?Reveals a pleasant, alert, well nourished, well- developed, well hydrated individual, who demonstrates proper attention to hygiene/body habitus, and is in no acute distress, Pt serves as own historian for office visit today.?ORIENTED:?person, place, and time.?FOOT EXAM:?Lower Extremity Neurological Exam performed:?Yes ?Visual exam of foot performed:?Yes ?Date?06/24/2024 ?Footwear Evaluation?Footwear Evaluation performed:?Yes??? Assessment: * Assessment: 1.?Other hammer toe(s) (acqu ired), left foot - M20.42 (Primary)???2.?Tinea pedis of both feet - B35.3???3.?Type 2 diabetes mellitus with diabetic polyneuropathy - E11.42???4.?Tinea unguium - B35.1???5.?Other hammer toe(s) (acquired), right foot - M20.41???6.?Xerosis of skin - L85.3??? Plan: * Treatment: * Procedures:?Debride Nail 6-10:?Nail debridement?Due to the clinical pathology outlined in the exam findings, performance of this nail treatment is medically necessary as its management by an unskilled/untrained nonprofessional would put this patients foot and overall health at risk. Therefore, debridement to affected nail(s), as described in exam ( TA, T1, T2, T3, T4, T5, T6, T7, T8, T9, ), was performed exclusively by the physician of record to reduce/remove overall nail length, girth, thickness, subungual debris, and necrotic tissue, by manual and/or electrical means through the use of a nail nipper and/or dremel-type sausage grinder, to a more viable healthy nail plate or bed tissue 6- 10 nails in total. Silver nitrate was used for any petechial bleeding as necessary. Definitive antifungal treatment options, both pharmaceutical and surgical, have been reviewed and discussed with the patient. The patient solely prefers the use of intermittent/as needed professional debridement services for their nail condition and understands the need for additional periodic treatments to maintain effectiveness in symptomatic relief - 38593.?Keratoma Treatment:?Parring or Cutting of Benign Hyperkeratotic Lesion(s)?(-57) More than 4 Lesions - Due to the at risk nature of the patients medical condition as documented in the exam findings, performance of this keratoderma treatment is medically necessary as its management by an unskilled/untrained nonprofessional would put this patients foot and overall health at risk. Therefore, the benign hyperkeratotic lesions, ( 8 ) in total, locations as stated and described in the exam (?TA, T5, Sub met 1, 5 Heels B/L), were pared, and/or cut utilizing a sterile 15 blade, tissue nippers, and/or power dremel instrumentation by the physician of record - 14828.? * Procedure Codes:?54678 DEBRI DE NAIL, 6 OR MORE, Modifiers: XS 69272 TRIM SKIN LESIONS, OVER 4, Modifiers: XS [...] a full understanding of the above information., Patient DEFERS recommended Extra Depth Orthopedic pressure-accommodative shoes against medical advice.?Tinea Pedis:?PREVENTIVE STRATEGIES were reviewed with the patient to avoid recurrent issues ., , The patient was counseled on the diagnosis, potential [...] to their pharmacy at the time of visit.?Xerosis:?Discussed with the Patient the issues that may arise if he/she does not treat their condition : Pain, fissues, infection and further break down of skin. Pt still defers a rx.? * Follow Up:?2 Months * Images: * Sign off status: Completed true * Provider:?Ludivina Villar, DPM Date:? Generated for Saulo gamboa/Nico/Kaur on:?07/28/2024 09:18 AM EDT History and Physical Notes * HPI (History of Present Illness) Category Sub-Category Detail Notes Category Not es Toe pain Location: , 2nd toe, Left foot Duration: several years Course: worse Aggravated by: shoes, any pressure Treatments: change in shoes Skin problems Nature: scaling , redness Location: B/L Duration: several months Course: worse Treatments: admits nonadherence to recommended application At Risk footcare Pt States Last PCP [...] Sub met 1, 5 Heels B/L, Skin STILL, shows sign(s) of, erythema, scaling, in a moccasin fashion, no fissure(s) present, B/L, Skin shows sign(s) of, dryness, scaling, in a stocking fashion, with heel fissure(s) present, B/L, no signs of infection Orthopedic FOOTWEAR EVALUATION: worn, non-s upportive, shoe gear properties exacerbate patient's foot/toe deformity DIGITAL DEFORMITIES: Digital contracture , PIPJ, 2-5 B/L, incompl-reducible to push-up test, no over, nor underlapping, there is evidence of shoe producing skin irritation , T1 MUSCLE STRENGTH: 5/5 all groups in a symmetrical fashion, B/L General Examination GENERAL APPEARANCE: Reveals a pleasant, alert, well nourished, well-developed, well hydrated individual, who demonstrates proper attention to hygiene/body habitus, and is in no acute distress, Pt serves as own historian for office visit today FOOT EXAM: Lower Extremity Neurological Exa m performed:: Yes Visual exam of foot performed:: Yes Date: 06/24/2024 ORIENTED: person, place, and t soumya Footwear Evaluation Footwear Evaluation performe d:: Yes Ophthalmology Referral DIABETES EYE EXAM Procedure Perform ed:: Yes ?Date of Exam Performed: 10/28/2023 Findings of Diabetic Eye Exam:: no retin opathy Vascular DP PULSES (B): 3/4, B/L PT PULSES (B): 3/4, B/L CAPILLARY FILL TIME: immediate, all digi ts, B/L TEMPERTURE GRADIENT (C): normal, warm to cool, proximal to distal, B/L, B/L TROPHIC CONDITION-TEXTURE/ELASTICITY/TURGOR/HAIR GROWTH (B): normal, B/L PIGMENTATION: normal, B/L Nails NAILS are: Elongated, overg rown, dystrophic, lytic, greater than 3mm thick, discolored and friable with crumbly malodorous subungual debris,, TA, T1, T2, T3, T4, T5, T6, T7, T8, T9
== END 2024-07-28 09:27 | disposition home or self-care (01) ==
LOC: HO.RHE 08:50
PROVIDERS: PCP Internal Medicine; Visit Provider Student in an Organized Health Care Education/Training Program
DX: M81.0 Age-related osteoporosis without current pathological fracture (principal); H81.10 Benign paroxysmal vertigo, unspecified ear; Z79.83 Long term (current) use of bisphosphonates
CPT/HCPCS: 99213; G2211

== ENCOUNTER → 2024-07-28 08:49 | Outpatient (BNVA) | payer OTHER, SELFPAY | PROVIDERS: PCP Internal Medicine; Visit Provider Student in an Organized Health Care Education/Training Program | DX: M81.0 Age-related osteoporosis without current pathological fracture (principal); H81.10 Benign paroxysmal vertigo, unspecified ear; Z79.83 Long term (current) use of bisphosphonates | CPT/HCPCS: 96372; 99212; J0897 ==

== ENCOUNTER 2024-09-07 10:22 | Outpatient (AMB) | payer OTHER, SELFPAY ==
[2024-09-07 10:40] VITALS: BP 120/61; PULSE 86; O2SAT 100; BMI 27.4
--- NOTE | 2024-09-07 10:40 | MHC.OFFVIS ---
Vital Signs 09/07/24 10:40 Height 5 ft 5 in Weight 164 lb 14.492 oz BMI 27.4 BP 120/61 Blood Pressure Location Lt brachial Position Sitting Pulse 86 Pulse Source Pulse Oximeter Pulse Oximetry (%) 100 Oxygen Delivery Method Room Air Intake Visit Reasons: Cyclical vomiting syndrome Intake Note: Pt presents to the office today for cyclical vomiting syndrome. Pt states last year she would have times where she would bend down and throw up. 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 Daughter Breast cancer, Onset Age: 38 Social History Household Members: None Housing: Apartment Alcohol intake: never Patient Tobacco Use Status: Former Tobacco user Tobacco use type: Cigarette e-Cigarette/Vaping Use: Never Used Second Hand Smoke Exposure: No service: No Current occupational status: unemployed Cognitive needs: No Hearing needs: No Vision needs: No Physical Exam Vital Signs: Last Vital Signs Pulse 86 09/07/24 10:40 BP 120/61 09/07/24 10:40 Pulse Ox 100 09/07/24 10:40 Oxygen Delivery Method Room Air 09/07/24 10:40 BMI result Body Mass Index 27.4 Assessment & Plan Assessment & Plan (1) Nausea and vomiting: Code(s): R11.2 - Nausea with vomiting, unspecified Category: Medical Qualifiers: Vomiting type: unspecified Qualified Code(s): R11.2 - Nausea with vomiting, unspecified Orders: Orders Complete Blood Count Auto Diff Today R11.2 - Nausea with vomiting, unspecified TSH reflex Free T4 Today R11.2 - Nausea with vomiting, unspecified Comprehensive Met. Panel Today K75.81 - Nonalcoholic steatohepatitis (DHILLON), R11.2 - Nausea with vomiting, unspecified FL barium swallow Today R13.10 - Dysphagia, unspecified Coding Diagnoses Nausea and vomiting, unspecified vomiting type R11.2 Vomiting type: unspecified
--- OUTSIDE RECORDS SUMMARY | 2024-09-07 10:54 | XMS_ITS ---
[facility] Address [address] [place] [address] Care Team Providers Care Lead Handler Name Role Phone Clara LAL, Orin Primary Care Provider Unavail able Lino Brad Unavailable [phone] Ludivina Villar Unavailable [phone] Allergies Allergen (clinical drug ingredient) Drug/Non Drug [...] Problem Acquired hammer toe of right foot (4954508966344 105) Other hammer toe(s) (acquired), right foot (M20.41) Active confirmed Problem Acquired hammer toe of left foot (6422247777439 103) Other hammer toe(s) (acquired), left foot (M20.42) Active confirmed Vital Signs Height 5ft 4in in 04/01/2024 Weight 146 lbs 04/01/2024 BMI 25.06 kg/m2 04/01/2024 Encounters Encounter Location Date Provider Diagnosis [facility] [address] [place] [address] 04/01/2024 Ludivina Villar Type 2 diabetes mellitus [...] Provider Name:Ludivina lechuga, 09/18/2024 10:00:00 AM, [address] [place], [address], Procedure Notes * Category Sub-Category Detail Notes [...] use of a nail nipper and/or dremel-type coffee grinder, to a more viable healthy nail [...] to maintain effectiveness in symptomatic relief - 00065 Keratoma Treatment Parring or Cutting o f Benign Hyperkeratotic Lesion(s) (-57) More than 4 Lesions - The Benign hyperkeratotic lesions, ( 8 ) in total, locations as stated and described in exam, were pared, and/or cut utilizing a sterile 15 blade, tissue nippers, and/or power dremel instrumentation - 23477 Progress Notes * Sydney TREADWELLDOB:[birth year] (63 yo F)Acc No.[id number]:04/01/2024 Progress Note Patient:?Sydney TREADWELL Provider:?Ludivina Villar DPM :1960???Age:63 Y???Sex:Female D ate:04/01/2024 Address:[address] [place] [address] [place] Pcp:Orin Elizabeth MD Subjective: * Chief Complaints: [...] use of a nail nipper and/or dremel-type coffee grinder, to a more viable healthy nail [...] to maintain effectiveness in symptomatic relief - 63481.?Keratoma Treatment:?Parring or Cutting of Benign Hyperkeratotic Lesion(s)?(-57) More than 4 Lesions - The Benign hyperkeratotic lesions, ( 8 ) in total, locations as stated and described in exam, were pared, and/or cut utilizing a sterile 15 blade, tissue nippers, and/or power dremel instrumentation - 05825.? * Procedure Codes:?65214 DEBRI DE NAIL, 6 OR MORE, Modifiers: XS 44009 TRIM SKIN LESIONS, OVER 4, Modifiers: XS [...] Villar DPM Date:?07/2023 Generated for Saulo gamboa/Nico/Kaur on:?09/07/2024 10:54 AM EDT History and Physical Notes * [...]
--- OUTSIDE RECORDS SUMMARY | 2024-09-07 10:54 | XMS_ITS | Patient Health Record ---
Author Organization [facility] Address [address] [facility] [place] [address] Care Team Providers Care Boat Garnisher Name Role Phone Clara LAL, Orin Primary Care Provider Unavail able Brad Huynh Unavailable [phone] JianAnanten Unavailable [phone] Allergies Allergen (clinical drug ingredient) Drug/Non Drug [...] Problem Status W/U Status Risk Notes Problem Other hammer toe(s) (acquired), right foot (M20.41) Active confirmed Problem Acquired hammer toe of left foot ([id number] ) Other hammer toe(s) (acquired), left foot (M20.42) Active confirmed Problem Polyneuropathy due to type 2 diabetes mellitus (135188918) Type 2 diabetes mellitus with diabetic polyneuropathy (E11.42) Active confirmed Problem Polyneuropathy due to diabetes mellitus type I (240348778) Type 1 diabetes mellitus with diabetic polyneuropathy (E10.42) Active confirmed Vital Signs Blood pressure diastolic 80 mm Hg 06/24/2024 Height 5ft4in in 06/24/2024 Blood pressure systolic 120 mm Hg 06/24/2024 Weight 150 lbs 06/24/2024 BMI 25.74 kg/m2 06/24/2024 Encounters Encounter Location Date Provider Diagnosis [facility] [address] [address] 04/01/2024 Ludivina Villar Type 2 diabetes mellitus with diabetic polyneuropathy E11.42 ; Tinea pedis of both feet B35.3 ; Tinea unguium B35.1 ; Other hammer toe(s) (acquired), right foot M20.41 and Other hammer toe(s) (acquired), left foot M20.42 [facility] [address] [address] 06/24/2024 Ludivina Villar Tinea pedis of both [...] Treatment Pending Test Test Name Order Date [id number] NAIL, 6 OR MORE 12/06/2021 [id number] SKIN LESIONS, OVER 4 09/07/19 22 90647-[id number] SKIN LESIONS, OVER 4 12/07/19 22 Next Appt Details Provider Name:Ludivina lechuga, 09/18/2024 10:00:00 AM, [address] [facility], [place], [address], Insurance Providers Payer Name Payer Address Payer Phone Subscriber Number Group Number Insured Name Patient Relationship to Insured Coverage Start Date Coverage End Date [facility] [employer] Claims [address] [place] [address] [id number] Sydney Treadwell Self - patient is the insured Medical (General) History Medical History History ICD Code Arthritis Back,Hip,and Knee pain CAD (Cholesterol) Cataracts Depression type II diabetes High blood pressure Macular degeneration Numbness Osteoporosis Mumps Chicken pox Surgical History Surgery Date(Month/Year) x2 06/1983,03/1986
--- OUTSIDE RECORDS SUMMARY | 2024-09-07 10:55 | XMS_ITS ---
Author Organization [facility] Address [address] [place] [address] Care Team Providers Care Skeiner Name Role Phone Clara LAL, Orin Primary Care Provider Unavail able Huynh Brad Unavailable [phone] Ludivina Villar Unavailable [phone] Allergies Allergen (clinical drug ingredient) Drug/Non Drug [...] 025 Encounters Encounter Location Date Provider Diagnosis [facility] [address] [place] [address] 06/24/2024 Ludivina Villar Tinea pedis of both [...] Reason: Provider Name:Ludivina lechuga, 09/18/2024 10:00:00 AM, [address] [place] [address], [address], Procedure Notes * Category Sub-Category Detail Notes [...] use of a nail nipper and/or dremel-type plate glass grinder, to a more viable healthy nail [...] to maintain effectiveness in symptomatic relief - 05611 Keratoma Treatment Parring or Cutting o f [...] instrumentation by the physician of record - 38927 Progress Notes * Sydney TREADWELLDOB:[birth year] (64 yo F)Acc No.[id number]:06/24/2024 Progress Note Patient:?Khushbu TREADWELLKarly Provider:?Ludivina Villar DPM :1960???Age:64 Y???Sex:Female D ate:06/24/2024 Address:[address] [place], [place] [address] Pcp:Orin Elizabeth MD Subjective: * Chief Complaints: [...] use of a nail nipper and/or dremel-type plate glass grinder, to a more viable healthy nail [...] to maintain effectiveness in symptomatic relief - 42145.?Keratoma Treatment:?Parring or Cutting of Benign Hyperkeratotic Lesion(s)?(-57) [...] instrumentation by the physician of record - 90661.? * Procedure Codes:?48377 DEBRI DE NAIL, 6 OR MORE, Modifiers: XS 18692 TRIM SKIN LESIONS, OVER 4, Modifiers: XS [...] Villar, DPM Date:? Generated for Saulo gamboa/Nico/Kaur on:?09/07/2024 10:54 AM [...]
--- NOTE | 2024-09-07 10:57 | MHC.OFFVIS ---
Vital Signs 09/07/24 10:40 Height 5 ft 5 in Weight 164 lb 14.492 oz BMI 27.4 BP 120/61 Blood Pressure Location Lt brachial Position Sitting Pulse 86 Pulse Source Pulse Oximeter Pulse Oximetry (%) 100 Oxygen Delivery Method Room Air Intake Visit Reasons: Cyclical vomiting syndrome Allergies Victoza Allergy (Intermediate, Uncoded 09/07/24 10:43) nausea and vomiting Codeine Adverse Reaction (Intermediate, Uncoded 09/07/24 10:43) nausea HPI HPI Cyclical vomiting syndrome: Details: HPI 64 yr old f here for assessment She has noted worsening regurgitation with bending over she has noted worsening constipation on 2 occasion, took senna no blood in stools no chest or abdominal apin no cough or sputum she denies reflux she can have troubkle swallowing food sometimes and has to cough it up sometimes she never had egd or colonoscopy, did stool testing, was negative she is on metformin and ozempic for DM, a1c has been good ROS: Constitutional : No Weight loss, No Fever, No Chills ENT/Mouth : No sore throat, No Rhinorrhea Eyes: No Swelling, No Redness Cardiovascular : No Chest Pain, No SOB, No Edema Respiratory : No Cough, No Sputum, No Wheezing Gastrointestinal : see HPI Genitourinary : NO Dysuria, No Urinary Frequency, No Hematuria, No Urgency Musculoskeletal : no joint pain, No Myalgias, No Joint Swelling Skin : No Skin Lesions, No rash Neuro : No Weakness, No Numbness, No Dizziness, No Headache Psych : No Anxiety/Panic, No Depression Heme/Lymph: No Bruising, No Lymphadenopathy Endocrine : No Polyuria, No Polydipsia All other systems reviewed and are negative. Medical History Mild recurrent major depression B12 deficiency Jaime's disease Dyslipidemia Hypertension Diabetic polyneuropathy associated with type 2 diabetes mellitus snf (current) use of insulin Diabetes type 2, controlled Surgical History Hx of section Family History Father Raynaud's syndrome without gangrene Mother No problems noted. Daughter Breast cancer, Onset Age: 38 Social History ex smoker, no alcohol, no drugs EXAM: GENERAL: The patient is well developed and nontoxic. VITAL SIGNS:see workflow HEENT: Nonicteric sclerae, PERRLA, EOMI. Oropharynx clear. Moist mucous membranes. Conjunctivae appear well perfused. No thyroid mass. CHEST: Chest wall is nontender. HEART: Regular rate and rhythm without murmurs. LUNGS: Clear to auscultation bilaterally. ABDOMEN: Soft, positive bowel sounds, nontender, no organomegaly.no flank tenderness--bowel sound sheard in the chest SKIN: No rash, no excessive bruising, petechiae, or purpura. NEUROLOGIC: Cranial nerves II-XII intact without motor/sensory deficit. Psych: normal affect A/P: 1/ Regurgitation and dysphagia may have hiatal hernia, maybe due to meds or gastroparesis, uncontrolled GERD< incompetent LES 2/ abn bowel habit on ozempic for a while PLAN: 1/ advised on egd and colo but she declines, will get ba swallow and labs today incl TSH PFSH Medical History Mild recurrent major depression B12 deficiency Jaime's disease Dyslipidemia Hypertension Diabetic polyneuropathy associated with type 2 diabetes mellitus snf (current) use of insulin Diabetes type 2, controlled Surgical History Hx of section Family History Father Raynaud's syndrome without gangrene Mother No problems noted. Daughter Breast cancer, Onset Age: 38 Social History Household Members: None Housing: Apartment Alcohol intake: never Patient Tobacco Use Status: Former Tobacco user Tobacco use type: Cigarette e-Cigarette/Vaping Use: Never Used Second Hand Smoke Exposure: No service: No Current occupational status: unemployed Cognitive needs: No Hearing needs: No Vision needs: No Physical Exam Vital Signs: Last Vital Signs Pulse 86 09/07/24 10:40 BP 120/61 09/07/24 10:40 Pulse Ox 100 09/07/24 10:40 Oxygen Delivery Method Room Air 09/07/24 10:40 BMI result Body Mass Index 27.4 Assessment & Plan Assessment & Plan (1) Persistent recurrent vomiting: Code(s): R11.15 - Cyclical vomiting syndrome unrelated to migraine Category: Medical Plan: as above Orders: Orders Complete Blood Count Auto Diff Today R11.2 - Nausea with vomiting, unspecified TSH reflex Free T4 Today R11.2 - Nausea with vomiting, unspecified Comprehensive Met. Panel Today K75.81 - Nonalcoholic steatohepatitis (DHILLON), R11.2 - Nausea with vomiting, unspecified [place] barium swallow Today R13.10 - Dysphagia, unspecified Coding Level of Care Code New Pt Level 4 (58701) Diagnoses Persistent recurrent vomiting R11.15
== END 2024-09-07 11:06 | disposition home or self-care (01) ==
PROVIDERS: PCP Internal Medicine; Visit Provider Internal Medicine Gastroenterology
DX: R11.15 Cyclical vomiting syndrome unrelated to migraine (principal)
CPT/HCPCS: 99204

== ENCOUNTER 2024-09-07 10:22 | Outpatient (REF) | payer OTHER, SELFPAY ==
[2024-09-07 11:35] LABS: MANUAL DIFF FLAG NO
[2024-09-07 11:45] LABS: Basophils Absolute Auto 0.1 X10*3/uL (0.0-0.2); Basophils Percent Auto 0.8 % (0-2); Eosinophils Absolute Auto 0.3 X10*3/uL (0.0-0.4); Eosinophils Percent Auto 3.8 % (0-4); Hematocrit 33.7 % (37.0-47.0); Hemoglobin 11.1 g/dl (12.0-16.0); Imm Gran Abs Auto 0.03 X10*3/uL (0.00-0.03); Imm Gran Pct Auto 0.4 % (0.0-0.4); Lymphocytes Absolute Auto 2.5 X10*3/uL (1.2-4.9); Mean Corpuscular HGB Conc 32.9 g/dl (31.0-35.0); Mean Corpuscular Hemoglobin 28.8 pg (27.0-33.0); Mean Corpuscular Volume 87.5 fL (80.0-98.0); Mean Platelet Volume 9.7 fL (9.4-12.3); Monocytes Absolute Auto 0.6 X10*3/uL (0.1-1.2); Monocytes Percent Auto 8.5 % (2-11); Neutrophils Absolute Auto 3.9 x10*3/uL (2.0-8.3); Neutrophils Percent Auto 52.5 % (45-73); Platelet Count 306 X10*3/uL (160-400); Red Blood Count 3.85 X10*6/uL (4.20-5.50); Red Cell Distribution Width 13.3 % (11.0-16.0); White Blood Count 7.5 X10*3/uL (4.8-10.8)
[2024-09-07 13:40] LABS: Alanine Aminotransferase 23 U/L (0-31); Albumin Level 4.2 g/dL (3.5-5.0); Anion Gap 12 (12-20); Aspartate Amino Transferase 23 U/L (5-31); Bilirubin Total 0.1 mg/dL (0.0-1.0); Blood Urea Nitrogen 18 mg/dL (9-16); Carbon Dioxide 28 mmol/L (22-29); Chloride 105 mmol/L (96-108); Estimated Glomerular Filt Rate > 60; Glucose Random 83 mg/dL (60-115); Potassium 4.5 mmol/L (3.3-5.1); Sodium 140 mmol/L (135-145); Total Protein 6.7 g/dL (6.5-8.0)
[2024-09-07 15:17] LABS: Alkaline Phosphatase 34 U/L (39-117)
== END 2024-09-07 10:23 | disposition home or self-care (01) ==
LOC: HO.LAB 10:22
PROVIDERS: PCP Internal Medicine; Visit Provider Internal Medicine Gastroenterology
DX: R11.15 Cyclical vomiting syndrome unrelated to migraine (principal); K75.81 Nonalcoholic steatohepatitis (NASH)
CPT/HCPCS: 36415; 80053; 84443; 85025; 99202

== ENCOUNTER 2024-11-17 08:40 | Outpatient (AMB) | payer OTHER, SELFPAY ==
--- NOTE | 2024-11-17 08:48 | MHC.PC.OV ---
Vital Signs 11/17/24 08:49 Height 5 ft 5 in Weight 166 lb BMI 27.6 BP 108/62 Blood Pressure Location Lt brachial Position Sitting Intake Visit Reasons: annual exam- A1C needed. Intake Note: Patient here for an Annual Physical Exam Oven Press Tender Required: No Accompanied by: Self / Same As Patient Allergies Victoza Allergy (Intermediate, Uncoded 11/17/24 09:02) nausea and vomiting Codeine Adverse Reaction (Intermediate, Uncoded 11/17/24 09:02) nausea Medication List - Last Reconciled 11/17/24 by Orin Can MD aripiprazole 5 mg PO DAILY 90 days atomoxetine 40 mg PO QAM 90 days atorvastatin 20 mg PO DAILY 90 days blood sugar diagnostic As directed blood sugar diagnostic (FreeStyle Lite Strips) As directed 4 times a day blood sugar diagnostic (FreeStyle Lite Strips) Use 1 test strip once a day blood-glucose meter (FreeStyle Huffman Lite kit) As directed bupropion HCl XL 150 mg PO DAILY 90 days bupropion HCl XL 300 mg PO DAILY 90 days calcium carbonate (Oyster Shell Calcium) 500 mg PO DAILY 90 days cholecalciferol (vitamin D3) 50 mcg PO DAILY 90 days denosumab (Prolia) 60 mg subcut [id number] ferrous sulfate 325 mg PO DAILY 90 days gabapentin 100 mg PO BEDTIME ibuprofen 800 mg PO Q8H PRN 30 days lancets As directed lisinopril 10 mg PO DAILY 90 days metformin ER 500 mg PO BID pen needle, diabetic (BD Ultra-Fine Nora Pen Needle) 1 ea subcut DAILY 90 days semaglutide (Ozempic) 0.5 mg (0.736 mL) subcut QWEEK 90 days Tobacco use date assessed: 05/27/24 Fall risk assessment: No Falls in past year Last assessed Fall Risk: 11/17/24 Dental Screening Dental Screen Date: 05/27/24 HPI HPI Comments History of Present Illness Details The patient is a 64-year-old female presenting for a physical exam and management of chronic conditions. She has a history of osteoporosis, identified in March 2023, and is managed by rheumatology with a Prolia injection planned. Rheumatology changed to [place] and patient does not drive to [place] therefore I will refer her to endocrinology. She has diabetes mellitus type 2 with an A1c of 5.4% today therefore within goal. Last diabetic eye exam was 2024. Went to the director of vendor management 2 months ago for diabetic foot examined care. She also has mild major depression follow by Psychiatry. The patient reports a right hand tremor that began a couple of months ago, occurring primarily at rest. No headaches or any other neurological deficit associated with it. Will be referred to Neurology. She experiences vomiting when bending forward, with a barium swallow ordered for further investigation. Patient declined endoscopy and colonoscopy. Anemia is noted with a hemoglobin level of 11.1 g/dL, and she is taking iron supplements. Denies any active bleeding. Preventative care includes up-to-date vaccinations and screenings, with a negative Cologuard test and mammogram. - Pneumonia vaccine: Up to date - Tetanus vaccine: Up to date - Cologuard test: Negative in 2023, next due in 2026 - Mammogram: Negative in May 2023 - Bone density test: Severe osteoporosis noted in March 2023 [facility] Medical History Mild recurrent major depression B12 deficiency Jaime's disease Dyslipidemia Hypertension Diabetic polyneuropathy associated with type 2 diabetes mellitus alf (current) use of insulin Diabetes type 2, controlled Surgical History Hx of section Family History Father Raynaud's syndrome without gangrene Mother No problems noted. Daughter Breast cancer, Onset Age: 38 Social History Household Members: None Housing: Apartment Alcohol intake: never Patient Tobacco Use Status: Former Tobacco user Tobacco use type: Cigarette e-Cigarette/Vaping Use: Never Used Second Hand Smoke Exposure: No service: No Current occupational status: unemployed Cognitive needs: No Hearing needs: No Vision needs: No Questionnaire Thrive Questionnaire Date Thrive assessed: 05/27/24 KYA-7 AMB Questionnaire KYA-7 Date KYA - 7 assessed: 05/27/24 Source: Developed by Drs. Antwan Hunt, Melissa Xiong, Kevin Gutierrez and colleagues, with an educational romulo from [employer]. Review of Systems Const All systems reviewed & are unremarkable except as noted in HPI and below Card Denies chest pain at rest, Denies chest pain with activity, Denies edema, Denies irregular heart rhythm, Denies claudication, Denies dyspnea, Denies dyspnea on exertion, Denies orthopnea, Denies paroxysmal nocturnal dyspnea and Denies slow heart rate Resp Denies cough, Denies dyspnea and Denies dyspnea on exertion GI Denies abdominal pain, Denies change in bowel habits, Denies excessive flatus, Denies nausea and Denies vomiting Denies urinary incontinence, Denies urinary hesitancy and Denies urinary urgency Musc Denies atrophy, Denies deformity and Denies limited range of motion Skin/Breast Denies bleeding lesions, Denies changing lesions and Denies rash Neuro Reports tremor(s) Physical exam (Primary Care) Vital Signs: Last Vital Signs BP 108/62 11/17/24 08:49 BMI result Body Mass Index 27.6 Tobacco/Smoking Status: Tobacco use Status Tobacco use date assessed 05/27/24 11/17/24 08:50 Patient Tobacco Use Status Former Tobacco user 11/17/24 08:50 Tobacco use type Cigarette 11/17/24 08:50 e-Cigarette/Vaping Use Never Used 11/17/24 08:50 Thrive Assessment: Date of Thrive Assessment Date Thrive assessed 05/27/24 11/17/24 08:50 HENMT Head: Yes normal to inspection, Yes normocephalic and Yes atraumatic Ears: external ears normal Eyes General: appearance normal, both eyes and all related structures Eyelids: Yes eyelids normal Conjunctivae: conjunctivae normal Neck Neck: Yes normal visual inspection and Yes supple Resp Effort & Inspection: normal respiratory effort Auscultation: clear to auscultation bilaterally Cardio Jugular venous distension: no JVD Rate: regular rate Rhythm: regular rhythm Heart sounds: S1 normal heart sound present and S2 normal heart sound present GI Inspection: Yes normal to inspection Palpation (GI): Soft to palpation and nontender Auscultation: normal bowel sounds Skin General skin exam: no rashes or lesions noted Neuro General: no focal motor deficits Extrem General: Yes full ROM Psych Appearance: grossly normal Results AMB Hemoglobin A1c AMB Hemoglobin A1c 5.6 % Last Edit by FRITZ Gonsales on 11/17/24 09:26 Coding Level of Care Code Est Pt Level 3 (51053) Est Pt Prev Care >65y(72293) Diagnoses Physical exam Z00.00 Tremor of right hand R25.1 Diabetes type 2, controlled E11.9 Age-related osteoporosis without current pathological fracture M81.0 Osteoporosis type: age-related Presence of current pathological fracture: without current pathological fracture Mild recurrent major depression F33.0 Time Spent (min) 35 Assessment & Plan Assessment & Plan (1) Physical exam: Code(s): Z00.00 - Encounter for general adult medical examination without abnormal findings Category: Medical (2) Tremor of right hand: Code(s): R25.1 - Tremor, unspecified Category: Medical (3) Diabetes type 2, controlled: Code(s): E11.9 - Type 2 diabetes mellitus without complications Category: Medical (4) Osteoporosis: Comment: DEXA 03/2023: AP Spine -2.6, Left femur neck -2.0, Left femur total -1.8 Medication History: Prolia (denosumab) 60mg qmth - Started 05/2023 - Second dose: 12/2023 - Third dose: 07/2023 Code(s): M81.0 - Age-related osteoporosis without current pathological fracture Category: Medical Qualifiers: Osteoporosis type: age-related Presence of current pathological fracture: without current pathological fracture Qualified Code(s): M81.0 - Age-related osteoporosis without current pathological fracture (5) Mild recurrent major depression: Code(s): F33.0 - Major depressive disorder, recurrent, mild Category: Medical Plan The patient will continue management of osteoporosis with a Prolia injection scheduled for January and follow-up with endocrinology. For the right hand tremor, a referral to neurology will be made to investigate the cause and determine appropriate management. A barium swallow has been ordered to evaluate the gastroesophageal reflux symptoms, and the patient is advised to avoid bending forward to prevent regurgitation. The anemia will be monitored with follow-up blood work in four months to assess hemoglobin levels and response to iron supplementation. Patient was informed and verbally consented to the use of an ambient scribe for clinic note documentation during this visit. I discussed with the patient the management of her osteoporosis, including the upcoming Prolia injection and the importance of follow-up with endocrinology. We talked about the right hand tremor and the need for a neurology referral to explore potential causes and treatment options. The patient was informed about the barium swallow procedure to investigate her gastroesophageal reflux symptoms and advised to avoid bending forward to reduce regurgitation episodes. We also reviewed her anemia, and I recommended monitoring her hemoglobin levels with follow-up blood work in four months. Orders: Orders AMB Hemoglobin A1c Today E11.9 - Type 2 diabetes mellitus without complications, Z79.4 - termination clerk (current) use of insulin Vitamin D 25-OH Total 4 Months E55.9 - Vitamin D deficiency, unspecified Vitamin B12 and Folate 4 Months E53.8 - Deficiency of other specified B group vitamins Complete Blood Count Auto Diff 4 Months D64.9 - Anemia, unspecified IRON PROFILE 4 Months D64.9 - Anemia, unspecified Comprehensive [place]. Panel Fast 4 Months Z00.00 - Encounter for general adult medical examination without abnormal findings Thyroid Stimulating Hormone 4 Months E06.3 - Autoimmune thyroiditis XR DEXA axial skeleton 5 Months Z78.0 - Asymptomatic menopausal state Lipid Panel 4 Months E78.5 - Hyperlipidemia, unspecified Microalbumin, Random (w Creat) 4 Months R80.9 - Proteinuria, unspecified Referrals Neurology Referral R25.1 - Tremor, unspecified Endocrinology Referral M81.0 - Age-related osteoporosis without current pathological fracture Patient Instructions: - Continue taking iron supplements with vitamin C as prescribed. - Avoid bending forward to prevent regurgitation. - Attend scheduled Prolia injection and follow-up appointments with endocrinology and rheumatology. - Follow up with neurology for evaluation of right hand tremor. - Return for blood work in four months to monitor anemia.
[2024-11-17 08:49] VITALS: BP 108/62; BMI 27.6
--- OUTSIDE RECORDS SUMMARY | 2024-11-17 08:58 | XMS_ITS | Patient Health Record ---
[facility] Address [address] [place] [address] Care Team Providers Care Plate Straightener Name Role Phone Clara LAL, Orin Primary Care Provider Unavail able Brad Huynh Unavailable [phone] JianAnanten Unavailable [phone] Allergies Allergen (clinical drug ingredient) Drug/Non Drug [...] HCl Acti ve metFORMIN HCl Active Vitamin C Active Wellbutrin Active Iron Active Ciclopirox Olamine 0.77 % APPLY ONE APPL ICATION EXTERNALLY TWICE DAILY TO SKIN OF FEET INCLUDING BETWEEN THE TOES; Duration: 30 Active Ozempic Active Vitamin D Active Janumet Active Calcium Active Lantus 100 UNIT/ML as directed Subcutaneous Active ARIPiprazole Active Atorvastatin Calcium Active Immunizations Vaccine Route Administration Date Status Comme nts Influenza Unknown 01/27/2022 Administered COVID-19 Moderna Vaccine Unknown 01/29/2022 Administered 2020,2020 2020,2021 unsure dates Social History Tobacco Use: Social History Observation [...] Problem Acquired hammer toe of right foot (3910012570300644 ) Other hammer toe(s) (acquired), right foot (M20.41) Active confirmed Problem Acquired hammer toe of left foot (1789989440241763 ) Other hammer toe(s) (acquired), left foot (M20.42) Active confirmed Problem Polyneuropathy due to type 2 diabetes mellitus (646015345) Type 2 diabetes mellitus with diabetic polyneuropathy (E11.42) Active confirmed Problem Polyneuropathy due to diabetes mellitus type I (214706073) Type 1 diabetes mellitus with diabetic polyneuropathy (E10.42) Active confirmed Vital Signs Blood pressure diastolic 80 mm Hg 09/18/2024 Height 5ft4in in 09/18/2024 Blood pressure systolic 120 mm Hg 09/18/2024 Weight 150 lbs 09/18/2024 BMI 25.74 kg/m2 09/18/2024 Encounters Encounter Location Date Provider Diagnosis [facility] [address] [address] 04/01/2024 Ludivina Villar Type 2 diabetes mellitus with diabetic polyneuropathy E11.42 ; Tinea pedis of both feet B35.3 ; Tinea unguium B35.1 ; Other hammer toe(s) (acquired), right foot M20.41 and Other hammer toe(s) (acquired), left foot M20.42 [facility] [address] [address] 06/24/2024 Ludivina Villar Tinea pedis of both feet B35.3 ; Other hammer toe(s) (acquired), left foot M20.42 ; Type 2 diabetes mellitus with diabetic polyneuropathy E11.42 ; Tinea unguium B35.1 ; Other hammer toe(s) (acquired), right foot M20.41 and Xerosis of skin L85.3 [facility] [place] [address] [place] [address] 09/18/2024 Ludivina Jian Tinea pedis of both feet B35.3 ; Other hammer toe(s) (acquired), left foot M20.42 ; Type 2 diabetes mellitus with diabetic polyneuropathy E11.42 ; Tinea unguium B35.1 and Other hammer toe(s) (acquired), right foot M20.41 Assessments Encounter Date Diagnosis (ICD Code) Assessment Notes Treatment Notes Treatment Clinical Notes Section Notes 04/01/2024 Type 2 diabetes mellitus with diabetic polyneuropathy (ICD-10 - E11.42) 04/01/2024 Tinea pedis of both feet (ICD-10 - B35.3) 06/24/2024 Other hammer toe(s) (acquired), left foot (ICD-10 - M20.42) 06/24/2024 Tinea pedis of both feet (ICD-10 - B35.3) 09/18/2024 Other hammer toe(s) (acquired), left foot (ICD-10 - M20.42) 09/18/2024 Tinea pedis of both feet (ICD-10 - B35.3) 09/18/2024 Type 2 diabetes mellitus with diabetic polyneuropathy (ICD-10 - E11.42) 06/24/2024 Type 2 diabetes mellitus with diabetic polyneuropathy (ICD-10 - E11.42) 04/01/2024 Tinea unguium (ICD-10 - B35.1) 04/01/2024 Other hammer toe(s) (acquired), right foot (ICD-10 - M20.41) Patient Educated with: DIABETIC FOOT CARE INSTRUCTIONS. pdf (DIABETIC FOOT CARE INSTRUCTIONS. pdf) 06/24/2024 Tinea unguium (ICD-10 - B35.1) 09/18/2024 Tinea unguium (ICD-10 - B35.1) 09/18/2024 Other hammer toe(s) (acquired), right foot (ICD-10 - M20.41) 06/24/2024 Other hammer toe(s) (acquired), right foot (ICD-10 - M20.41) 04/01/2024 Other hammer toe(s) (acquired), left foot (ICD-10 - M20.42) 06/24/2024 Xerosis of skin (ICD-10 - L85.3) Plan Of Treatment Pending Test Test Name Order Date [id number] NAIL, 6 OR MORE 12/06/2021 [id number] SKIN LESIONS, OVER 4 09/07/19 [id number] SKIN LESIONS, OVER 4 12/07/19 Next Appt Details Provider Name:Ludivina lechuga, 12/04/2024 10:00:00 AM, [address] [place], [address], Insurance Providers Payer Name Payer Address Payer Phone Subscriber Number Group Number Insured Name Patient Relationship to Insured Coverage Start Date Coverage End Date [facility] [employer] Claims [address] [place] [address] [phone] [id number] Sydney Treadwell Self - patient is the insured Medical (General) History Medical History History ICD Code Arthritis Back,Hip,and Knee pain CAD (Cholesterol) Cataracts Depression type II diabetes High blood pressure Macular degeneration Numbness Osteoporosis Mumps Chicken pox Surgical History Surgery Date(Month/Year) x2 06/1983,03/1986
== END 2024-11-17 09:21 | disposition home or self-care (01) ==
LOC: HO.HMCH 08:41
PROVIDERS: PCP Internal Medicine; Visit Provider Internal Medicine
DX: Z00.00 Encounter for general adult medical examination without abnormal findings (principal); R25.1 Tremor, unspecified; E11.9 Type 2 diabetes mellitus without complications; Z79.4 Long term (current) use of insulin; M81.0 Age-related osteoporosis without current pathological fracture; F33.0 Major depressive disorder, recurrent, mild

== ENCOUNTER → 2024-11-17 08:40 | Outpatient (BNVA) | payer OTHER, SELFPAY | PROVIDERS: PCP Internal Medicine; Visit Provider Internal Medicine | DX: Z00.00 Encounter for general adult medical examination without abnormal findings (principal); M81.0 Age-related osteoporosis without current pathological fracture; R25.1 Tremor, unspecified; R11.10 Vomiting, unspecified; E11.9 Type 2 diabetes mellitus without complications; F33.0 Major depressive disorder, recurrent, mild; K21.9 Gastro-esophageal reflux disease without esophagitis; E55.9 Vitamin D deficiency, unspecified; E53.8 Deficiency of other specified B group vitamins; D64.9 Anemia, unspecified; E06.3 Autoimmune thyroiditis; E78.5 Hyperlipidemia, unspecified; R80.9 Proteinuria, unspecified; Z79.4 Long term (current) use of insulin; Z78.0 Asymptomatic menopausal state | CPT/HCPCS: 83036; 99212; 99397 ==

== ENCOUNTER 2024-12-18 08:25 | Outpatient (REF) | payer OTHER, SELFPAY ==
--- OUTSIDE RECORDS SUMMARY | 2024-12-11 06:00 | XMS_ITS ---
Author Organization [facility] Address [address] [place] [address] Care Team Providers Care Television Operator Name Role Phone Clara LAL, Orin Primary Care Provider Unavail able Brad Huynh Unavailable [phone] Ludivina Villar Unavailable [phone] Horton Encounters Encounter Location Date Provider Diagnosis [address] [address] 12/11/2024 Ludivina Villar Plan Of Treatment Next Appt Details Provider Name:Ludivina lechuga, 02/26/2025 09:15:00 AM, [address] [place] [address], [phone], Progress Notes * Sydney TREADWELLDOB:[birth year] (64 yo F)Acc No.[id number]:12/11/2024 Progress Note Patient: Sydney LOZADA Provider: Christie Villar DPM :1960 A ge:64 Y S ex:Female Date:12/11/2024 Address:[address] [place] [address] [id number] Pcp:Orin Elizabeth MD Subjective: * Chief Complaints: [...] 0 12/11/2024 Generated for Saulo gamboa/Nico/Kaur on: 12/18/2024 08:37 AM EDT
--- NOTE | ~2024-12-18 | FL_ITS ---
EXAMINATION: XR FLUOROSCOPY BARIUM SWALLOW CLINICAL INFORMATION: Dysphagia, episodic regurgitation, problem swallowing large pills. COMPARISON: None TECHNIQUE: Fluoroscopic air contrast upper GI examination was performed utilizing standard techniques with thin and thick barium and effervescent granules. A 13 mm barium tablet was also administered. Numerous spot images were obtained. Several fluoroscopic image hold cine sequences were also obtained. FINDINGS: UPPER GI SERIES: 13 mm barium tablet administered initially lodged in the vallecula, and would not dislodge with water. It eventually progressed into the distal esophagus and stomach only with sequential swallows of thick barium. Lateral cine images of the oropharynx and hypopharynx demonstrate normal swallow mechanism with normal epiglottic inversion and soft palate elevation. No laryngeal penetration, glottic or subglottic aspiration identified. No nasopharyngeal reflux present. Hypopharyngeal structures appear normal without evidence of mass or diverticulum. There was no significant cricopharyngeal achalasia. Dual and single contrast images of the esophagus demonstrate normal caliber, contour, and mucosal pattern. No evidence of stricture, mass, or ulcerations identified. Esophageal peristalsis was mild to moderately disordered. There was a small type I hiatus hernia. There was gastroesophageal reflux noted to the level of the thoracic inlet. Dual contrast and single contrast images of the stomach demonstrated normal contour and mucosal pattern without evidence of mass, ulceration, or other abnormality. Contrast freely passed into the gastric antrum and duodenal bulb without delay. Single and air-contrast images of the duodenal bulb demonstrate no abnormality. The duodenal sweep has a normal appearance, course, and mucosal fold appearance. FLUOROSCOPY TIME: 3 minutes, 12 seconds Number of Spot Images:6 Number of cines obtained: 13 DOSE AREA PRODUCT: 2914 uGy-m2 (microgray-meter squared) FL/FL barium swallow with air IMPRESSION: 1. Administered 13 mm barium tablet initially lodged in the vallecula, and would not progress with swallows of water. It did eventually progress into the distal esophagus and stomach only with sequential swallows of thick barium. 2. Mild to moderately disordered esophageal peristalsis. 3. Small type I hiatus hernia. 4. Episodic gastroesophageal reflux to the level of the thoracic inlet. 5. Grossly normal appearance of the stomach. Electronically signed by: Markus Cadena MD 12/18/2024 11:15 AM EDT
== END 2024-12-18 08:26 | disposition home or self-care (01) ==
LOC: HO.XRAY 08:25
PROVIDERS: PCP Internal Medicine; Visit Provider Internal Medicine Gastroenterology
DX: R13.10 Dysphagia, unspecified (principal)
CPT/HCPCS: 74221

== ENCOUNTER → 2024-12-18 08:32 | Outpatient (BNV) | payer OTHER, SELFPAY | PROVIDERS: PCP Internal Medicine; Visit Provider Radiology Diagnostic Radiology | DX: R13.10 Dysphagia, unspecified (principal) | CPT/HCPCS: 74221 ==

== ENCOUNTER 2024-12-31 08:47 | Outpatient (AMB) | payer OTHER, SELFPAY ==
--- OUTSIDE RECORDS SUMMARY | 2024-12-11 06:00 | XMS_ITS ---
Author Organization [facility] Address [address] [place] [address] Care Team Providers Care Vp Clinical Research Name Role Phone Clara LAL, Orin Primary Care Provider Unavail able Brad Huynh Unavailable [phone] Ludivina Villar Unavailable [phone] Horton Encounters Encounter Location Date Provider Diagnosis [address] [address] 12/11/2024 Ludivina Villar Plan Of Treatment Next Appt Details Provider Name:Ludivina lechuga, 02/26/2025 09:15:00 AM, [address] [place] [address], [phone], Progress Notes * Sydney TREADWELLDOB:[birth year] (64 yo F)Acc No.[id number]:12/11/2024 Progress Note Patient: Sydney LOZADA Provider: Christie Villar DPM :1960 A ge:64 Y S ex:Female Date:12/11/2024 Address:[address] [place] [address] [id number] Pcp:Orin Elizabeth MD Subjective: * Chief Complaints: [...] 0 12/11/2024 Generated for Saulo Artis/Kaur on: 0 12/31/2024 09:18 AM EDT
--- NOTE | 2024-12-31 08:56 | A.OFFVIS_ITS ---
Vital Signs 12/31/24 09:01 Height 5 ft 3.98 in Weight 167 lb 15.876 oz BMI 28.9 BP 88/54 L Blood Pressure Location Rt brachial Position Sitting Pulse 90 Pulse Source Pulse Oximeter Pulse Oximetry (%) 98 Oxygen Delivery Method Room Air Intake Visit Reasons: Age-related osteoporosis without current pathologi Intake Note: New patient internally referred by PCP for Age-related Osteoporosis, last DEXA was on 04/09/2023 at [facility]. Solar Sales Assessor Required: No Accompanied by: Self / Same As Patient Allergies Victoza Allergy (Intermediate, Uncoded 12/31/24 09:02) nausea and vomiting Codeine Adverse Reaction (Intermediate, Uncoded 12/31/24 09:02) nausea Medication List - Last Reconciled 12/31/24 by Antwan Henson MD aripiprazole 5 mg PO DAILY 90 days atomoxetine 40 mg PO QAM 90 days atorvastatin 20 mg PO DAILY 90 days blood sugar diagnostic As directed blood sugar diagnostic (FreeStyle Lite Strips) As directed 4 times a day blood sugar diagnostic (FreeStyle Lite Strips) Use 1 test strip once a day blood-glucose meter (FreeStyle [place] Lite kit) As directed bupropion HCl XL 150 mg PO DAILY 90 days bupropion HCl XL 300 mg PO DAILY 90 days calcium carbonate (Oyster Shell Calcium) 500 mg PO DAILY 90 days cholecalciferol (vitamin D3) 50 mcg PO DAILY 90 days denosumab (Prolia) 60 mg subcut [id number] esomeprazole magnesium 20 mg PO DAILY ferrous sulfate 325 mg PO DAILY 90 days gabapentin 100 mg PO BEDTIME ibuprofen 800 mg PO Q8H PRN 30 days lancets As directed lisinopril 10 mg PO DAILY 90 days metformin ER 500 mg PO BID pen needle, diabetic (BD Ultra-Fine Nora Pen Needle) 1 ea subcut DAILY 90 days semaglutide (Ozempic) 0.5 mg (0.736 mL) subcut QWEEK 90 days HPI Comments Details: 64 YO Female with PMHx diabetes is seen in consultation at the request of PCP for Osteoporosis. Was previously seen in endocrinology for diabetes First diagnosed in 2 yrs ago . Received treatment with Prolia from rheumatology from 05/2023 to 07/2024 . Tolerated treatment well without complication. Next dose due 01/2025 history of pathologic fracture in 2020 in spine but no ONJ. Has several servings of dietary calcium per day in the form of cereal , milk . Takes Calcium supplement 500 mg daily in divided doses. Takes 2000 IU of Vitamin D daily. Takes PPI, anticoagulant, -antiepileptic -glucocorticoid medication. 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 UTD on dental cleanings and sees dentist every 6 months. No planned upcoming dental work or extractions. No tobacco use or heavy ETOH use DXA dated 04/09/23:FINDINGS: LEFT FEMUR, NECK: Current: BMD 0.755 g/cm2, Z-score -0.6, T-score -2.0, osteopenia. Baseline: BMD 0.757 g/cm2. LEFT FEMUR, TOTAL: Current: BMD 0.781 g/cm2, Z-score -0.6, T-score -1.8, osteopenia, 8.3% decrease from baseline (<5% change is not significant). Baseline: BMD 0.852 g/cm2. AP SPINE L1-L4: Current: BMD 0.868 g/cm2, Z-score -1.0, T-score -2.6, osteoporosis, 7.3% decrease from baseline (<5% change is not significant). Baseline: BMD 0.936 g/cm2. IDENTIFIED RISK FACTORS: Menopause, history of fracture (adult). HISTORY OF FRACTURE: Spine. MEDICATIONS: Calcium, vitamin D. MM/XR DEXA axial skeleton IMPRESSION: 1. DIAGNOSIS: Severe osteoporosis based on the lowest T-score value of -2.6 in the lumbar spine and history of fracture of spine applying World Health Organization criteria There are 5 nonrib-bearing lumbar vertebrae present. The anterior part of the L1 vertebral body shows slight decrease in height as compared to prior study dated 01/30/2013, consistent with subtle compression deformity, of indeterminate etiology and chronicity. The remainder of the lumbar vertebrae appear normal in height. The alignment is intact. Intervertebral disc heights are relatively well-maintained except for slight the right at T12-L1 and moderate decreased height at L5-S1. The posterior appendages are intact. The paraspinal soft tissues are unremarkable. XR/XR lumbar spine 2-3V IMPRESSION: 1. Subtle loss of height of the anterior part of L1 vertebral body, new since 01/30/2013, indeterminate etiology and chronicity. 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 Daughter Breast cancer, Onset Age: 38 Social History Household Members: None Housing: Apartment Alcohol intake: never Patient Tobacco Use Status: Former Tobacco user Tobacco use type: Cigarette e-Cigarette/Vaping Use: Never Used Second Hand Smoke Exposure: No service: No Current occupational status: unemployed Cognitive needs: No Hearing needs: No Vision needs: No Physical Exam Vital Signs: Last Vital Signs Pulse 90 12/31/24 09:01 BP 88/54 L 12/31/24 09:01 Pulse Ox 98 12/31/24 09:01 Oxygen Delivery Method Room Air 12/31/24 09:01 BMI result Body Mass Index 28.9 There are no Cushingoid features. Absence of blue sclera. Absence of kyphosis. Thyroid gland is of nl size and weighs 15 gms. There are no thyroid nodules palpated. Lungs CTA. Heart S1 S2 Reg R/R Abdominal exam benign. Muscle strength 5/5 . Examination of spine reveals absence of tenderness on palpation Assessment & Plan Assessment & Plan (1) Osteoporosis: Comment: DEXA 03/2023: AP Spine -2.6, Left femur neck -2.0, Left femur total -1.8 Medication History: Prolia (denosumab) 60mg qmth - Started 05/2023 - Second dose: 12/2023 - Third dose: 07/2023 Code(s): M81.0 - Age-related osteoporosis without current pathological fracture Category: Medical Qualifiers: Osteoporosis type: age-related Presence of current pathological fracture: without current pathological fracture Qualified Code(s): M81.0 - Age- related osteoporosis without current pathological fracture Plan: This is a 64-year-old white female with a history of osteoporosis and vertebral fracture being treated with Prolia started in 05/2023. She had a partial secondary workup Plan is to complete the secondary workup by checking a urine immunofixation, serum phosphorus level, 24 hour urine for calcium and creatinine. We will continue to ensure calcium supplementation 1200 mg total per day of calcium intake and vitamin-D intake. We will repeat DEXA in 03/2025. Goal is to continue the Prolia for about 3-5 years' time and then could transition to a bisphosphonate . Orders: Orders Phosphorus Today M81.0 - Age-related osteoporosis without current pathological fracture Calcium, 24 Hr Ur Today M81.0 - Age-related osteoporosis without current pathological fracture Creatinine, 24 Hr Group Today M81.0 - Age-related osteoporosis without current pathological fracture Immunofixation, Random Urine Today M81.0 - Age-related osteoporosis without current pathological fracture XR DEXA axial skeleton 3 Months M81.0 - Age-related osteoporosis without current pathological fracture Coding Level of Care Code Est Pt Level 4 (60969) Diagnoses Age-related osteoporosis without current pathological fracture M81.0 Osteoporosis type: age-related Presence of current pathological fracture: without current pathological fracture
[2024-12-31 09:01] VITALS: BP 88/54; PULSE 90; O2SAT 98; BMI 28.9
--- OUTSIDE RECORDS SUMMARY | 2024-12-31 09:19 | XMS_ITS | Patient Health Record ---
Author [facility] Address [address] [facility] [place] [address] Care Team Providers Care Street Light Servicer Name Role Phone Clara LAL, Orin Primary Care Provider Unavail able Brad Huynh Unavailable [phone] Jian Ludivina Unavailable [phone] Allergies Allergen (clinical drug ingredient) Drug/Non Drug [...] Duration) Notes Start Date End Date Status Calcium Active Vitamin C Active Lantus 100 UNIT/ML as directed Subcutaneous Not-Taking Atomoxetine HCl Not- Taking Ciclopirox Olamine 0.77 % APPLY ONE APPLICATION EXTERNALLY TWICE DAILY TO SKIN OF FEET INCLUDING BETWEEN THE TOES; Duration: 30 Active Wellbutrin Active Atorvastatin Calcium Active ARIPiprazole Active metFORMIN HCl Active Iron Active Janumet Not-Taking Vitamin D Active Ozempic Active Immunizations Vaccine Route Administration Date Status Comme nts Influenza Unknown 01/27/2022 Administered Influenza Unknown 12/29/2023 Administered COVID-19 Moderna Vaccine Unknown 01/29/2022 Administered [...] (Standard) Question Answer Notes Tobacco use: Nonsmoker AUDIT-C (Standard) Question Answer Notes Did you have a drink containing alcohol in the p ast year? No Points 0 Interpretation Negative Problems Problem Type SNOMED Code ICD Code Onset Dates Problem Status W/U Status Risk Notes Problem Polyneuropathy due to type 2 diabetes mellitus (131922200) Type 2 diabetes mellitus with diabetic polyneuropathy (E11.42) Active confirmed Vital Signs Blood pressure diastolic 80 mm Hg 12/04/2024 Height 5ft4in in 12/04/2024 Blood pressure systolic 120 mm Hg 12/04/2024 Weight 160 lbs 12/04/2024 BMI 27.46 kg/m2 12/04/2024 Encounters Encounter Location Date Provider Diagnosis [address] [address] 04/01/2024 Ludivina Villar Type 2 diabetes mellitus with diabetic polyneuropathy E11.42 ; Tinea pedis of both feet B35.3 ; Tinea unguium B35.1 ; Other hammer toe(s) (acquired), right foot M20.41 and Other hammer toe(s) (acquired), left foot M20.[address] [address] 06/24/2024 Ludivina Villar Tinea pedis of both feet B35.3 ; Other hammer toe(s) (acquired), left foot M20.42 ; Type 2 diabetes mellitus with diabetic polyneuropathy E11.42 ; Tinea unguium B35.1 ; Other hammer toe(s) (acquired), right foot M20.41 and Xerosis of skin L85.[address] [address] 09/18/2024 Ludivina Villar Tinea pedis of both feet B35.3 ; Other hammer toe(s) (acquired), left foot M20.42 ; Type 2 diabetes mellitus with diabetic polyneuropathy E11.42 ; Tinea unguium B35.1 and Other hammer toe(s) (acquired), right foot M20.41 [facility] [address] [address] 12/04/2024 Ludivina Villar Tinea pedis of both feet B35.3 ; Type 2 diabetes mellitus with diabetic polyneuropathy E11.42 and Tinea unguium B35.1 Assessments Encounter Date Diagnosis (ICD Code) Assessment [...] pedis of both feet (ICD-10 - B35.3) 12/04/2024 Type 2 diabetes mellitus with diabetic polyneuropathy (ICD-10 - E11.42) 12/04/2024 Tinea pedis of both feet (ICD-10 - B35.3) 12/04/2024 Tinea unguium (ICD-10 - B35.1) 09/18/2024 Type 2 diabetes mellitus with diabetic [...] Treatment Pending Test Test Name Order Date [id number] NAIL, 6 OR MORE 12/06/2021 [id number] SKIN LESIONS, OVER 4 09/07/19 [id number] SKIN LESIONS, OVER 4 12/07/19 Next Appt Details Provider Name:Ludivina lechuga, 02/26/2025 09:15:00 AM, [address] [place] [address], [phone], Insurance Providers Payer Name Payer Address Payer Phone Subscriber Number Group Number Insured Name Patient Relationship to Insured Coverage Start Date Coverage End Date [facility] [employer] Claims [address] [place] [phone] [id number] Sydney Treadwell Self - patient is the insured Medical (General) History Medical History History ICD Code Arthritis Back,Hip,and Knee pain CAD (Cholesterol) Cataracts Depression type II diabetes High blood pressure Macular degeneration Numbness Osteoporosis Mumps Chicken pox Surgical History Surgery Date(Month/Year) x2 06/1983,03/1986
== END 2024-12-31 09:32 | disposition home or self-care (01) ==
LOC: HO.ENCR 08:48
PROVIDERS: PCP Internal Medicine; Visit Provider Internal Medicine Endocrinology, Diabetes & Metabolism
DX: M81.0 Age-related osteoporosis without current pathological fracture (principal)
CPT/HCPCS: 99214

== ENCOUNTER → 2024-12-31 08:47 | Outpatient (BNVA) | payer OTHER, SELFPAY | PROVIDERS: PCP Internal Medicine; Visit Provider Internal Medicine Endocrinology, Diabetes & Metabolism | DX: M81.0 Age-related osteoporosis without current pathological fracture (principal); E53.8 Deficiency of other specified B group vitamins; Z79.620 Long term (current) use of immunosuppressive biologic | CPT/HCPCS: 99212 ==

== ENCOUNTER 2024-12-31 09:37 | Outpatient (REF) | payer OTHER, SELFPAY | END 2024-12-31 09:38 | disposition home or self-care (01) | LOC: HO.10HDL 09:37 | PROVIDERS: Visit Provider Internal Medicine Endocrinology, Diabetes & Metabolism | DX: M81.0 Age-related osteoporosis without current pathological fracture (principal) | CPT/HCPCS: 36415; 84100; 86335 ==

== ENCOUNTER 2025-01-08 10:18 | Outpatient (REF) | payer OTHER, SELFPAY ==
--- OUTSIDE RECORDS SUMMARY | 2024-12-11 06:00 | XMS_ITS ---
Author Organization [facility] Address [address] [place] [address] Care Team Providers Care Geographic Information Systems Director Name Role Phone Clara LAL, Orin Primary Care Provider Unavail able Brad Huynh Unavailable [phone] Ludivina Villar Unavailable [phone] Horton Encounters Encounter Location Date Provider Diagnosis [address] [address] 12/11/2024 Ludivina Villar Plan Of Treatment Next Appt Details Provider Name:Ludivina lechuga, 02/26/2025 09:15:00 AM, [address] [place] [address], [phone], Progress Notes * Sydney TREADWELLDOB:[birth year] (64 yo F)Acc No.[id number]:12/11/2024 Progress Note Patient: Sydney LOZADA Provider: Christie Villar DPM :1960 A ge:64 Y S ex:Female Date:12/11/2024 Address:[address] [place] [address] [id number] Pcp:Orin Elizabeth MD Subjective: * Chief Complaints: [...] 12/11/2024 Generated for Saulo gamboa/Nico/Kaur on: 0 01/08/2025 11:45 AM EDT
[2025-01-08 11:40] LABS: Creatinine, mg/dL 61.19
--- OUTSIDE RECORDS SUMMARY | 2025-01-08 11:46 | XMS_ITS | Patient Health Record ---
Author Organization [facility] Address [address] [place] [address] Care Team Providers Care Storage Battery Tester Name Role Phone Clara LAL, Orin Primary Care Provider Unavail able Brad Huynh Unavailable [phone] Jian Ludivina Unavailable [phone] Allergies Allergen (clinical drug ingredient) Drug/Non Drug [...] Polyneuropathy due to type 2 diabetes mellitus (004262312) Type 2 diabetes mellitus with diabetic polyneuropathy (E11.42) Active confirmed Vital Signs Blood pressure diastolic 80 mm Hg 12/04/2024 Height 5ft4in in 12/04/2024 Blood pressure systolic 120 mm Hg 12/04/2024 Weight 160 lbs 12/04/2024 BMI 27.46 kg/m2 12/04/2024 Encounters Encounter Location Date Provider Diagnosis [address] [address] 04/01/2024 Ludivina Villar Type 2 diabetes mellitus with diabetic polyneuropathy E11.42 ; Tinea pedis of both feet B35.3 ; Tinea unguium B35.1 ; Other hammer toe(s) (acquired), right foot M20.41 and Other hammer toe(s) (acquired), left foot M20.[address] [address] 06/24/2024 Ludivina Villar Tinea pedis of both feet B35.3 ; Other hammer toe(s) (acquired), left foot M20.42 ; Type 2 diabetes mellitus with diabetic polyneuropathy E11.42 ; Tinea unguium B35.1 ; Other hammer toe(s) (acquired), right foot M20.41 and Xerosis of skin L85.[address] [address] 09/18/2024 Ludivina Villar Tinea pedis of both feet B35.3 ; Other hammer toe(s) (acquired), left foot M20.42 ; Type 2 diabetes mellitus with diabetic polyneuropathy E11.42 ; Tinea unguium B35.1 and Other hammer toe(s) (acquired), right foot M20.41 [facility] [address] [address] 12/04/2024 Ludivina Villar Tinea pedis of both [...] Treatment Pending Test Test Name Order Date [id number] NAIL, 6 OR MORE 12/06/2021 [id number] SKIN LESIONS, OVER 4 09/07/19 [id number] SKIN LESIONS, OVER 4 12/07/19 Next Appt Details Provider Name:Ludivina lechuga, 02/26/2025 09:15:00 AM, [address] [place] [address], [phone], Insurance Providers Payer Name Payer Address Payer Phone Subscriber Number Group Number Insured Name Patient Relationship to Insured Coverage Start Date Coverage End Date [facility] [employer] Claims [address] [place] [phone] [id number] Sydney Treadwell Self - patient is the insured Medical (General) History Medical History History ICD Code Arthritis Back,Hip,and Knee pain CAD (Cholesterol) Cataracts Depression type II diabetes High blood pressure Macular degeneration Numbness Osteoporosis Mumps Chicken pox Surgical History Surgery Date(Month/Year) x2 06/1983,03/1986
[2025-01-08 13:40] LABS: Total Volume 24 Hour Urine 1525 mL
[2025-01-15 20:03] LABS: Calcium/Creatinine Ratio 280 mg/g creat (30-275); Creatinine 24Hr Urine 0.93 g/24 h (0.50-2.15)
== END 2025-01-08 10:19 | disposition home or self-care (01) ==
LOC: HO.LNP 10:18
PROVIDERS: Visit Provider Internal Medicine Endocrinology, Diabetes & Metabolism
DX: M81.0 Age-related osteoporosis without current pathological fracture (principal)
CPT/HCPCS: 82340; 82570

== ENCOUNTER 2025-01-18 10:13 | Outpatient (AMB) | payer OTHER, SELFPAY ==
--- OUTSIDE RECORDS SUMMARY | 2024-12-11 06:00 | XMS_ITS ---
Author Organization [facility] Address [address] [place] [address] Care Team Providers Care First Aid Instructor Name Role Phone Clara LAL, Orin Primary Care Provider Unavail able Brad Huynh Unavailable [phone] Ludivina Villar Unavailable [phone] Horton Encounters Encounter Location Date Provider Diagnosis [address] [address] 12/11/2024 Ludivina Villar Plan Of Treatment Next Appt Details Provider Name:Ludivina lechuga, 02/26/2025 09:15:00 AM, [address] [place] [address], [phone], Progress Notes * Sydney TREADWELLDOB:[birth year] (64 yo F)Acc No.[id number]:12/11/2024 Progress Note Patient: Sydney LOZADA Provider: Christie Villar DPM :1960 A ge:64 Y S ex:Female Date:12/11/2024 Address:[address] [place] [address] [id number] Pcp:Orin Elizabeth MD Subjective: * Chief Complaints: [...] 12/11/2024 Generated for Saulo gamboa/Nico/Kaur on: 0 01/18/2025 12:33 PM EDT
--- NOTE | 2025-01-18 10:16 | A.OFFVIS_ITS ---
Vital Signs 01/18/25 10:18 Height 5 ft 3.4 in Weight 160 lb BMI 28.0 BP 92/52 L Blood Pressure Location Lt brachial Position Sitting Pulse 79 Intake Visit Reasons: 4 months f/u Intake Note: Khushbu presents in the office as a 4 month follow up. CC: States she is not having any concerns at this time. [place] Supervisor Required: No Allergies Victoza Allergy (Intermediate, Uncoded 01/18/25 10:18) nausea and vomiting Codeine Adverse Reaction (Intermediate, Uncoded 01/18/25 10:18) nausea HPI HPI 4 months f/u: Details: 64 yr old f here for f/u RECAP: She has noted worsening regurgitation with bending over she has noted worsening constipation on 2 occasion, took senna no blood in stools no chest or abdominal apin no cough or sputum she denies reflux she can have troubkle swallowing food sometimes and has to cough it up sometimes she never had egd or colonoscopy, did stool testing, was negative she is on metformin and ozempic for DM, a1c has been good I recommended egd and colo but she declined, so I ordered ba swallow and labs incl TSH Ba swallow: 1. Administered 13 mm barium tablet initially lodged in the vallecula, and would not progress with swallows of water. It did eventually progress into the distal esophagus and stomach only with sequential swallows of thick barium. 2. Mild to moderately disordered esophageal peristalsis. 3. Small type I hiatus hernia. 4. Episodic gastroesophageal reflux to the level of the thoracic inlet. 5. Grossly normal appearance of the stomach. LABS: mild anemia INTERIM: She denies dysphagia to food or liquids, only pills sometimes she does have burping she denies gerd she has variable bowel habits no n/v she has been taking esomeprazole BP slightly low, poor fluid intake generally, no dizziness EXAM: GENERAL: The patient is well developed and nontoxic. VITAL SIGNS:see workflow HEENT: Nonicteric sclerae, PERRLA, EOMI. Oropharynx clear. Moist mucous membranes. Conjunctivae appear well perfused. No thyroid mass. CHEST: Chest wall is nontender. HEART: Regular rate and rhythm without murmurs. LUNGS: Clear to auscultation bilaterally. ABDOMEN: Soft, positive bowel sounds, nontender, no organomegaly.no flank tenderness--bowel sound sheard in the chest SKIN: No rash, no excessive bruising, petechiae, or purpura. NEUROLOGIC: Cranial nerves II-XII intact without motor/sensory deficit. 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 Daughter Breast cancer, Onset Age: 38 Social History Household Members: None Housing: Apartment Alcohol intake: never Patient Tobacco Use Status: Former Tobacco user Tobacco use type: Cigarette e-Cigarette/Vaping Use: Never Used Second Hand Smoke Exposure: No service: No Current occupational status: unemployed Cognitive needs: No Hearing needs: No Vision needs: No Assessment & Plan Assessment & Plan (1) Anemia: Code(s): D64.9 - Anemia, unspecified Category: Medical Plan: as above (2) B12 deficiency: Code(s): E53.8 - Deficiency of other specified B group vitamins Category: Medical Plan: as above Orders: Orders Complete Blood Count Auto Diff Today D64.9 - Anemia, unspecified Ferritin Today D64.9 - Anemia, unspecified Transglutaminase Ab IgG Today D64.9 - Anemia, unspecified, E53.8 - Deficiency of other specified B group vitamins, G89.29 - Other chronic pain, R10.33 - Periumbilical pain Transglutaminase IgA Today D64.9 - Anemia, unspecified, E53.8 - Deficiency of other specified B group vitamins Vitamin B12 and Folate Today D64.9 - Anemia, unspecified Gliadin Ab Panel Today D64.9 - Anemia, unspecified, E53.8 - Deficiency of other specified B group vitamins Coding Level of Care Code Est Pt Level 3 (95362) Diagnoses Anemia D64.9 B12 deficiency E53.8
[2025-01-18 10:18] VITALS: BP 92/52; PULSE 79; BMI 28.0
--- OUTSIDE RECORDS SUMMARY | 2025-01-18 12:33 | XMS_ITS | Patient Health Record ---
Author Organization [facility] Address [address] [place] [address] Care Team Providers Care Engineering Group Manager Name Role Phone Clara LAL, Orin Primary Care Provider Unavail able Brad Huynh Unavailable [phone] Jian Ludivina Unavailable [phone] Allergies Allergen (clinical drug ingredient) Drug/Non Drug [...] Polyneuropathy due to type 2 diabetes mellitus (845703389) Type 2 diabetes mellitus with diabetic polyneuropathy (E11.42) Active confirmed Vital Signs Blood pressure diastolic 80 mm Hg 12/04/2024 Height 5ft4in in 12/04/2024 Blood pressure systolic 120 mm Hg 12/04/2024 Weight 160 lbs 12/04/2024 BMI 27.46 kg/m2 12/04/2024 Encounters Encounter Location Date Provider Diagnosis [address] [address] 04/01/2024 Ludivina Villar Type 2 diabetes mellitus with diabetic polyneuropathy E11.42 ; Tinea pedis of both feet B35.3 ; Tinea unguium B35.1 ; Other hammer toe(s) (acquired), right foot M20.41 and Other hammer toe(s) (acquired), left foot M20.[address] [address] 06/24/2024 Ludivina Villar Tinea pedis of both feet B35.3 ; Other hammer toe(s) (acquired), left foot M20.42 ; Type 2 diabetes mellitus with diabetic polyneuropathy E11.42 ; Tinea unguium B35.1 ; Other hammer toe(s) (acquired), right foot M20.41 and Xerosis of skin L85.[address] [address] 09/18/2024 Ludivina Villar Tinea pedis of both feet B35.3 ; Other hammer toe(s) (acquired), left foot M20.42 ; Type 2 diabetes mellitus with diabetic polyneuropathy E11.42 ; Tinea unguium B35.1 and Other hammer toe(s) (acquired), right foot M20.41 [facility] [address] [address] 12/04/2024 Ludivina Villar Tinea pedis of both [...] Treatment Pending Test Test Name Order Date [id number] NAIL, 6 OR MORE 12/06/2021 [id number] SKIN LESIONS, OVER 4 09/07/19 66078-YJSD SKIN LESIONS, OVER 4 12/07/19 Next Appt Details Provider Name:Ludivina lechuga, 02/26/2025 09:15:00 AM, [address] [place] [address], [phone], Insurance Providers Payer Name Payer Address Payer Phone Subscriber Number Group Number Insured Name Patient Relationship to Insured Coverage Start Date Coverage End Date [facility] [employer] Claims [address] [place] [phone] [id number] Sydney Treadwell Self - patient is the insured Medical (General) History Medical History History ICD Code Arthritis Back,Hip,and Knee pain CAD (Cholesterol) Cataracts Depression type II diabetes High blood pressure Macular degeneration Numbness Osteoporosis Mumps Chicken pox Surgical History Surgery Date(Month/Year) x2 06/1983,03/1986
== END 2025-01-18 10:35 | disposition home or self-care (01) ==
LOC: HO.HGI 10:14
PROVIDERS: PCP Internal Medicine; Visit Provider Internal Medicine Gastroenterology
DX: D64.9 Anemia, unspecified (principal); E53.8 Deficiency of other specified B group vitamins
CPT/HCPCS: 99213

== ENCOUNTER → 2025-01-18 10:13 | Outpatient (BNVA) | payer OTHER, SELFPAY | PROVIDERS: PCP Internal Medicine; Visit Provider Internal Medicine Gastroenterology | DX: R13.10 Dysphagia, unspecified (principal); E53.8 Deficiency of other specified B group vitamins; D64.9 Anemia, unspecified | CPT/HCPCS: 99212 ==

== ENCOUNTER 2025-01-19 09:34 | Outpatient (REF) | payer OTHER, SELFPAY ==
--- OUTSIDE RECORDS SUMMARY | 2024-12-11 06:00 | XMS_ITS ---
Author Organization [facility] Address [address] [place] [address] Care Team Providers Care Brush Painter Name Role Phone Clara LAL, Orin Primary Care Provider Unavail able Brad Huynh Unavailable [phone] Ludivina Villar Unavailable [phone] Horton Encounters Encounter Location Date Provider Diagnosis [address] [address] 12/11/2024 Ludivina Villar Plan Of Treatment Next Appt Details Provider Name:Ludivina lechuga, 02/26/2025 09:15:00 AM, [address] [place] [address], [phone], Progress Notes * Sydney TREADWELLDOB:[birth year] (64 yo F)Acc No.[id number]:12/11/2024 Progress Note Patient: Sydney LOZADA Provider: Christie Villar DPM :1960 A ge:64 Y S ex:Female Date:12/11/2024 Address:[address] [place] [address] [id number] Pcp:Orin Elizabeth MD Subjective: * Chief Complaints: * [address] Horton. * Medical History: Objective: * Vitals: Assessment: Plan: * Treatment: * Images: * The named appointment provid er may or may not be the originator of this progress note, and it is not deemed complete until electronically signed by the appointment provider. Sign off status: Pending * Provider: Christie Villar DPM Date: 0 12/11/2024 Generated for Saulo gamboa/Nico/Kaur on: 0 01/19/2025 11:19 AM EDT
--- OUTSIDE RECORDS SUMMARY | 2025-01-19 11:20 | XMS_ITS | Patient Health Record ---
Author Organization [facility] Address [address] [facility] [place] [address] Care Team Providers Care Director Human Services Name Role Phone Clara LAL, Orin Primary Care Provider Unavail able Brad Huynh Unavailable [phone] Jian Ludivina Unavailable [phone] Allergies Allergen (clinical drug ingredient) Drug/Non Drug [...] Polyneuropathy due to type 2 diabetes mellitus (353215118) Type 2 diabetes mellitus with diabetic polyneuropathy (E11.42) Active confirmed Vital Signs Blood pressure diastolic 80 mm Hg 12/04/2024 Height 5ft4in in 12/04/2024 Blood pressure systolic 120 mm Hg 12/04/2024 Weight 160 lbs 12/04/2024 BMI 27.46 kg/m2 12/04/2024 Encounters Encounter Location Date Provider Diagnosis [address] [address] 04/01/2024 Ludivina Villar Type 2 diabetes mellitus with diabetic polyneuropathy E11.42 ; Tinea pedis of both feet B35.3 ; Tinea unguium B35.1 ; Other hammer toe(s) (acquired), right foot M20.41 and Other hammer toe(s) (acquired), left foot M20.[address] [address] 06/24/2024 Ludivina Villar Tinea pedis of both feet B35.3 ; Other hammer toe(s) (acquired), left foot M20.42 ; Type 2 diabetes mellitus with diabetic polyneuropathy E11.42 ; Tinea unguium B35.1 ; Other hammer toe(s) (acquired), right foot M20.41 and Xerosis of skin L85.[address] [address] 09/18/2024 Ludivina Villar Tinea pedis of both feet B35.3 ; Other hammer toe(s) (acquired), left foot M20.42 ; Type 2 diabetes mellitus with diabetic polyneuropathy E11.42 ; Tinea unguium B35.1 and Other hammer toe(s) (acquired), right foot M20.41 [facility] [address] [address] 12/04/2024 Ludivina Villar Tinea pedis of both [...] Treatment Pending Test Test Name Order Date [id number] NAIL, 6 OR MORE 12/06/2021 [id number] SKIN LESIONS, OVER 4 09/07/19 [id number]-PHIA SKIN LESIONS, OVER 4 12/07/19 Next Appt Details Provider Name:Ludivina lechuga, 02/26/2025 09:15:00 AM, [address] [place] [address], [phone], Insurance Providers Payer Name Payer Address Payer Phone Subscriber Number Group Number Insured Name Patient Relationship to Insured Coverage Start Date Coverage End Date [facility] [employer] Claims [address] [place] [phone] [id number] Sydney Treadwell Self - patient is the insured Medical (General) History Medical History History ICD Code Arthritis Back,Hip,and Knee pain CAD (Cholesterol) Cataracts Depression type II diabetes High blood pressure Macular degeneration Numbness Osteoporosis Mumps Chicken pox Surgical History Surgery Date(Month/Year) x2 06/1983,03/1986
[2025-01-19 11:29] LABS: Ferritin 68 ng/mL (10-250)
[2025-01-19 11:40] LABS: Folate 11.2 ng/mL (> or = 4.0); Vitamin B12 403 pg/mL (200-900)
[2025-01-19 12:18] LABS: Albumin Level 4.5 g/dL (3.5-5.0); Anion Gap 11 (12-20); Blood Urea Nitrogen 20 mg/dL (9-16); Calcium 9.4 mg/dL (8.4-10.2); Carbon Dioxide 26 mmol/L (22-29); Chloride 107 mmol/L (96-108); Estimated Glomerular Filt Rate 58; Potassium 4.9 mmol/L (3.3-5.1); Sodium 139 mmol/L (135-145)
[2025-01-20 17:58] LABS: Transglutaminase Ab IgG <1.0 U/mL
== END 2025-01-19 09:35 | disposition home or self-care (01) ==
LOC: HO.LAB 09:34
PROVIDERS: Absent Provider Internal Medicine Gastroenterology; PCP Internal Medicine; Visit Provider Internal Medicine Endocrinology, Diabetes & Metabolism
DX: M81.0 Age-related osteoporosis without current pathological fracture (principal); D64.9 Anemia, unspecified; E53.8 Deficiency of other specified B group vitamins; R10.33 Periumbilical pain; G89.29 Other chronic pain
CPT/HCPCS: 36415; 80048; 82040; 82607; 82728; 82746; 85025; 86258; 86364

== ENCOUNTER 2025-01-25 09:19 | Outpatient (AMB) | payer OTHER, SELFPAY ==
--- OUTSIDE RECORDS SUMMARY | 2024-12-11 06:00 | XMS_ITS ---
Author Organization [facility] Address [address] [place] [address] Care Team Providers Care Label Printing Machinist Name Role Phone Clara LAL, Orin Primary Care Provider Unavail able Brad Huynh Unavailable [phone] Ludivina Villar Unavailable [phone] Horton Encounters Encounter Location Date Provider Diagnosis [address] [address] 12/11/2024 Ludivina Villar Plan Of Treatment Next Appt Details Provider Name:Ludivina lechuga, 02/26/2025 09:15:00 AM, [address] [place] [address], [phone], Progress Notes * Sydney TREADWELLDOB:[birth year] (64 yo F)Acc No.[id number]:12/11/2024 Progress Note Patient: Sydney LOZADA Provider: Christie Villar DPM :1960 A ge:64 Y S ex:Female Date:12/11/2024 Address:[address] [place] [address] [id number] Pcp:Orin Elizabeth MD Subjective: * Chief Complaints: [...] 12/11/2024 Generated for Saulo gamboa/Nico/Kaur on: 0 01/25/2025 10:04 AM EDT
--- NOTE | 2025-01-25 09:25 | MHC.OFFVIS ---
Intake Visit Reasons: tremor Allergies Victoza Allergy (Intermediate, Uncoded 01/18/25 10:18) nausea and vomiting Codeine Adverse Reaction (Intermediate, Uncoded 01/18/25 10:18) nausea HPI Comments Details: The patient is a 64-year-old female presenting with a tremor and difficulty walking. She reports an onset of symptoms around June, characterized by a right-hand resting tremor that she can consciously stop. The tremor becomes prominent when she is not paying attention or during rest periods before sleep. The patient experiences challenges in ambulation, feeling unsteady at times. Her history reveals she is right-handed, and the tremor does not occur when actively focusing on tasks such as holding a cup. The patient describes occasional difficulty with her feet catching while getting in and out of a car but does not report additional encumbrances dressing or moving. There is no family history of neurological disorders, no recent changes in sleep patterns, memory function, personality, or bladder control issues. [facility] Medical History (Updated 01/25/25 @ 09:41 by Isabell Ni MD) Tremor Mild recurrent major depression B12 deficiency Jaime's disease Dyslipidemia Hypertension Diabetic polyneuropathy associated with type 2 diabetes mellitus MCC (current) use of insulin Diabetes type 2, controlled Surgical History Hx of section Family History Father Raynaud's syndrome without gangrene Mother No problems noted. Daughter Breast cancer, Onset Age: 38 Social History Household Members: None Housing: Apartment Alcohol intake: never Patient Tobacco Use Status: Former Tobacco user Tobacco use type: Cigarette e-Cigarette/Vaping Use: Never Used Second Hand Smoke Exposure: No service: No Current occupational status: unemployed Cognitive needs: No Hearing needs: No Vision needs: No Review of Systems Const Details: - Musculoskeletal: Reports tremor in the right hand; Reports difficulty walking and feeling unsteady. - Neurological: Denies headaches; Denies changes in memory from baseline. - Genitourinary: Denies any problems with bladder control. - Psychiatric: Denies any change in sleep patterns, personality, or memory deterioration. Physical Exam Neuro Other: Mental Status: Alert and oriented to person, place, and time. Normal attention. Normal spontaneous speech, fluency, and comprehension. Cranial Nerves: CN II: Visual gonzalez full to confrontation, visual acuity intact. CN III, IV, : Pupils equal, round, reactive to light and accommodation. Extraocular movements are normal. CN V: Facial sensation is normal. CN VII: Facial movements symmetrical. CN VIII: Hearing intact to bedside conversation is normal. CN IX, X: Palate elevates symmetrically. CN XI: Shoulder shrug and head turn symmetrical. CN XII: Tongue midline without atrophy or fasciculations. Motor: Bulk and tone normal in all extremities. No significant muscle weakness in arms and legs. No drift. Reflexes: Deep tendon reflexes 2+ and symmetric. Plantar response down-going bilaterally. Coordination: Vqsjuq-qh-cmdo and vmnm-bp-pvec testing normal. No dysmetria. Gait and Station: No obvious gait abnormality. No ataxia or instability. Extrapyramidal: Minimal decrease in facial expression. Mild right hand resting tremor. Mild right hand cogwheeling rigidity upon reinforcement Speech: Normal; no dysarthria or tremor. Assessment & Plan Assessment & Plan (1) Parkinson disease: Code(s): G20.A1 - Parkinson's disease without dyskinesia, without mention of fluctuations Category: Medical Qualifiers: Dyskinesia presence: without dyskinesia Fluctuating manifestations: with fluctuating manifestations Qualified Code(s): G20.A2 - Parkinson's disease without dyskinesia, with fluctuations (2) MCI (mild cognitive impairment): Code(s): G31.84 - Mild cognitive impairment of uncertain or unknown etiology Category: Medical Plan Impression: Mild right sided parkinsonism with mostly resting tremor with mild difficulty walking and mild cognitive impairment Rec: MRI brain WO Orders: Orders MR head/brain wo con Today G20.A2 - Parkinson's disease without dyskinesia, with fluctuations, G31.84 - Mild cognitive impairment of uncertain or unknown etiology Coding Level of Care Code New Pt Level 5 (83046) Diagnoses Parkinson's disease without dyskinesia, with fluctuating manifestations G20.A2 Dyskinesia presence: without dyskinesia Fluctuating manifestations: with fluctuating manifestations MCI (mild cognitive impairment) G31.84
--- OUTSIDE RECORDS SUMMARY | 2025-01-25 10:04 | XMS_ITS | Patient Health Record ---
Author Organization [facility] Address [address] [place] [address] Care Team Providers Care Postal Service Clerk Name Role Phone Clara LAL, Orin Primary Care Provider Unavail able Brad Huynh Unavailable [phone] Jian Ludivina Unavailable [phone] Allergies Allergen (clinical drug ingredient) Drug/Non Drug [...] Polyneuropathy due to type 2 diabetes mellitus (918096607) Type 2 diabetes mellitus with diabetic polyneuropathy (E11.42) Active confirmed Vital Signs Blood pressure diastolic 80 mm Hg 12/04/2024 Height 5ft4in in 12/04/2024 Blood pressure systolic 120 mm Hg 12/04/2024 Weight 160 lbs 12/04/2024 BMI 27.46 kg/m2 12/04/2024 Encounters Encounter Location Date Provider Diagnosis [address] [address] 04/01/2024 Ludivina Villar Type 2 diabetes mellitus with diabetic polyneuropathy E11.42 ; Tinea pedis of both feet B35.3 ; Tinea unguium B35.1 ; Other hammer toe(s) (acquired), right foot M20.41 and Other hammer toe(s) (acquired), left foot M20.[address] [address] 06/24/2024 Ludivina Villar Tinea pedis of both feet B35.3 ; Other hammer toe(s) (acquired), left foot M20.42 ; Type 2 diabetes mellitus with diabetic polyneuropathy E11.42 ; Tinea unguium B35.1 ; Other hammer toe(s) (acquired), right foot M20.41 and Xerosis of skin L85.[address] [address] 09/18/2024 Ludivina Villar Tinea pedis of both feet B35.3 ; Other hammer toe(s) (acquired), left foot M20.42 ; Type 2 diabetes mellitus with diabetic polyneuropathy E11.42 ; Tinea unguium B35.1 and Other hammer toe(s) (acquired), right foot M20.41 [facility] [address] [address] 12/04/2024 Ludivina Villar Tinea pedis of both [...] Treatment Pending Test Test Name Order Date [id number] NAIL, 6 OR MORE 12/06/2021 [id number] SKIN LESIONS, OVER 4 09/07/19 [id number] SKIN LESIONS, OVER 4 12/07/19 Next Appt Details Provider Name:Ludivina lechuga, 02/26/2025 09:15:00 AM, [address] [place] [address], [phone], Insurance Providers Payer Name Payer Address Payer Phone Subscriber Number Group Number Insured Name Patient Relationship to Insured Coverage Start Date Coverage End Date [facility] [employer] Claims [address] [place] [phone] [id number] Sydney Treadwell Self - patient is the insured Medical (General) History Medical History History ICD Code Arthritis Back,Hip,and Knee pain CAD (Cholesterol) Cataracts Depression type II diabetes High blood pressure Macular degeneration Numbness Osteoporosis Mumps Chicken pox Surgical History Surgery Date(Month/Year) x2 06/1983,03/1986
== END 2025-01-25 09:44 | disposition home or self-care (01) ==
LOC: HO.HSM 09:20
PROVIDERS: PCP Internal Medicine; Visit Provider Psychiatry & Neurology Neurology
DX: G20.A2 Parkinson's disease without dyskinesia, with fluctuations (principal); G31.84 Mild cognitive impairment of uncertain or unknown etiology
CPT/HCPCS: 99203

== ENCOUNTER → 2025-01-25 09:19 | Outpatient (BNVA) | payer OTHER, SELFPAY | PROVIDERS: PCP Internal Medicine; Visit Provider Psychiatry & Neurology Neurology | DX: G20.A2 Parkinson's disease without dyskinesia, with fluctuations (principal); G31.84 Mild cognitive impairment of uncertain or unknown etiology | CPT/HCPCS: 99202 ==

== ENCOUNTER 2025-01-27 09:33 | Outpatient (AMB) | payer OTHER, SELFPAY ==
--- OUTSIDE RECORDS SUMMARY | 2024-12-11 06:00 | XMS_ITS ---
Author Organization [facility] Address [address] [place] [address] Care Team Providers Care Seater Assembler Name Role Phone Clara LAL, Orin Primary Care Provider Unavail able Brad Huynh Unavailable [phone] Ludivina Villar Unavailable [phone] Horton Encounters Encounter Location Date Provider Diagnosis [address] [address] 12/11/2024 Ludivina Villar Plan Of Treatment Next Appt Details Provider Name:Ludivina lechuga, 02/26/2025 09:15:00 AM, [address] [place] [address], [phone], Progress Notes * Sydney TREADWELLDOB:[birth year] (64 yo F)Acc No.[id number]:12/11/2024 Progress Note Patient: Sydney LOZADA Provider: Christie Villar DPM :1960 A ge:64 Y S ex:Female Date:12/11/2024 Address:[address] [place] [address] [id number] Pcp:Orin Elizabeth MD Subjective: * Chief Complaints: [...] 0 12/11/2024 Generated for Saulo gamboa/Nico/Kaur on: 10:26 AM EDT
--- NOTE | 2025-01-27 09:55 | AM.OFFVISNUR ---
Intake Visit Reasons: Prolia Injection Allergies Victoza Allergy (Intermediate, Uncoded 01/18/25 10:18) nausea and vomiting Codeine Adverse Reaction (Intermediate, Uncoded 01/18/25 10:18) nausea Office Meds Prolia 60 mg/mL subcutaneous syringe Performing Provider: Antwan Henson MD [place] [facility] [place] Administered by: Trish Awad RN on 01/27/25 09:55 Dose Route Admin Location Dispensed Lot Number Expiration Date [facility] Recruiting Intern 60 mg subcut LUQ abdomen 1 mL [id number] 06/27/27 27295-010-58 [employer] Total Dispensed Waste 1 mL 0 % Comments: Patient tolerated injection well. Patient denies any adverse reactions with previous injections. Patient scheduled for repeat in x6 months Assessment & Plan Assessment & Plan Orders: Orders AMB Denosumab Injection Practice Supplied Today M81.0 - Age-related osteoporosis without current pathological fracture Coding
--- OUTSIDE RECORDS SUMMARY | 2025-01-27 10:27 | XMS_ITS | Patient Health Record ---
Author Organization [facility] Address [address] [facility] [place] [address] Care Team Providers Care Shuffle Board Operator Name Role Phone Clara LAL, Orin Primary Care Provider Unavail able Brad Huynh Unavailable [phone] Jian Ludivina Unavailable [phone] Allergies Allergen (clinical drug ingredient) Drug/Non Drug [...] Polyneuropathy due to type 2 diabetes mellitus (634433146) Type 2 diabetes mellitus with diabetic polyneuropathy (E11.42) Active confirmed Vital Signs Blood pressure diastolic 80 mm Hg 12/04/2024 Height 5ft4in in 12/04/2024 Blood pressure systolic 120 mm Hg 12/04/2024 Weight 160 lbs 12/04/2024 BMI 27.46 kg/m2 12/04/2024 Encounters Encounter Location Date Provider Diagnosis [address] [address] 04/01/2024 Ludivina Villar Type 2 diabetes mellitus with diabetic polyneuropathy E11.42 ; Tinea pedis of both feet B35.3 ; Tinea unguium B35.1 ; Other hammer toe(s) (acquired), right foot M20.41 and Other hammer toe(s) (acquired), left foot M20.[address] [address] 06/24/2024 Ludivina Villar Tinea pedis of both feet B35.3 ; Other hammer toe(s) (acquired), left foot M20.42 ; Type 2 diabetes mellitus with diabetic polyneuropathy E11.42 ; Tinea unguium B35.1 ; Other hammer toe(s) (acquired), right foot M20.41 and Xerosis of skin L85.[address] [address] 09/18/2024 Ludivina Villar Tinea pedis of both feet B35.3 ; Other hammer toe(s) (acquired), left foot M20.42 ; Type 2 diabetes mellitus with diabetic polyneuropathy E11.42 ; Tinea unguium B35.1 and Other hammer toe(s) (acquired), right foot M20.41 [facility] [address] [address] 12/04/2024 Ludivina Villar Tinea pedis of both [...] Treatment Pending Test Test Name Order Date [id number] NAIL, 6 OR MORE 12/06/2021 [id number]-GQRQ SKIN LESIONS, OVER 4 09/07/19 [id number]-[id number] SKIN LESIONS, OVER 4 12/07/19 Next Appt Details Provider Name:Ludivina lechuga, 02/26/2025 09:15:00 AM, [address] [place] [address], [phone], Insurance Providers Payer Name Payer Address Payer Phone Subscriber Number Group Number Insured Name Patient Relationship to Insured Coverage Start Date Coverage End Date [facility] [employer] Claims [address] [place] [phone] [id number] Sydney Treadwell Self - patient is the insured Medical (General) History Medical History History ICD Code Arthritis Back,Hip,and Knee pain CAD (Cholesterol) Cataracts Depression type II diabetes High blood pressure Macular degeneration Numbness Osteoporosis Mumps Chicken pox Surgical History Surgery Date(Month/Year) x2 06/1983,03/1986
== END 2025-01-27 09:54 | disposition home or self-care (01) ==
LOC: HO.ENCR 09:34
PROVIDERS: PCP Internal Medicine; Visit Provider Internal Medicine Endocrinology, Diabetes & Metabolism
DX: M81.0 Age-related osteoporosis without current pathological fracture (principal)

== ENCOUNTER → 2025-01-27 | Outpatient (BNVA) | payer OTHER, SELFPAY | PROVIDERS: PCP Internal Medicine; Visit Provider Internal Medicine Endocrinology, Diabetes & Metabolism | DX: M81.0 Age-related osteoporosis without current pathological fracture (principal); Z79.620 Long term (current) use of immunosuppressive biologic | CPT/HCPCS: 96372; J0897 ==

== ENCOUNTER → 2025-02-22 17:49 | Outpatient (BNV) | payer OTHER, SELFPAY | PROVIDERS: PCP Internal Medicine; Visit Provider Radiology Diagnostic Radiology | DX: G20.A2 Parkinson's disease without dyskinesia, with fluctuations (principal); R90.82 White matter disease, unspecified | CPT/HCPCS: 70551 ==

== ENCOUNTER 2025-02-22 17:51 | Outpatient (REF) | payer OTHER, SELFPAY ==
--- OUTSIDE RECORDS SUMMARY | 2024-12-11 06:00 | XMS_ITS ---
Author Organization [facility] Address [address] [place] [address] Care Team Providers Care Yarn Comber Name Role Phone Clara LAL, Orin Primary Care Provider Unavail able Brad Miller Unavailable [phone] Ludivina Villar Unavailable [phone] Horton Encounters Encounter Location Date Provider Diagnosis [address] [address] 12/11/2024 Ludivina Villar Plan Of Treatment Next Appt Details Provider Name:Ludivina lechuga, 02/26/2025 09:15:00 AM, [address] [place] [address], [phone], Progress Notes * Sydney TREADWELLDOB:[birth year] (64 yo F)Acc No.[id number]:12/11/2024 Progress Note Patient: Sydney LOZADA Provider: Christie Villar DPM :1960 A ge:64 Y S ex:Female Date:12/11/2024 Address:[address] [place], [place] [id number] Pcp:Orin Elizabeth MD Subjective: * Chief Complaints: [...] DPM Date: 0 12/11/2024 Generated for Saulo Artis/Kaur on: 07:29 PM EDT
--- NOTE | ~2025-02-22 | MR_ITS ---
EXAMINATION: MR BRAIN WITHOUT CONTRAST CLINICAL INFORMATION: G 20.A2. Parkinson's disease without dyskinesia. COMPARISON: None available. TECHNIQUE: MRI of the brain was obtained using routine sequences without contrast. FINDINGS: No restricted diffusion. No signal abnormality within the substantia nigra. No acute intracranial hemorrhage, mass effect, midline shift, hydrocephalus or herniation. Bilateral multifocal punctate deep periventricular white matter hyperintense T2 FLAIR signal involving centrum semiovale and lemons radiata. Probable old lacunar infarct in the left insular/subinsular. Flow-void signal within the main cerebral vessels is normal. Jackson-white matter differentiation is normal. Posterior cranial fossa contents demonstrated no signal abnormality or mass effect. Normal position of the cerebellar tonsils. Sellar/suprasellar region demonstrated no signal abnormality or gross masses. No signal abnormality or volume loss in the hippocampi. Coarctation of the right occipital horn lateral ventricle. MR/MR head/brain wo con IMPRESSION: No acute brain abnormality. White matter disease likely related to small vessel occlusive disease. Electronically signed by: John Garcia MD 02/23/2025 06:45 AM EDT
--- OUTSIDE RECORDS SUMMARY | 2025-02-22 19:29 | XMS_ITS | Patient Health Record ---
Author Organization [facility] Address [address] [place] [address] Care Team Providers Care Supervisor Pastry Name Role Phone Clara LAL, Orin Primary Care Provider Unavail able Brad Miller Unavailable [phone] JianAnanten Unavailable [phone] Allergies Allergen (clinical drug ingredient) Drug/Non Drug [...] Polyneuropathy due to type 2 diabetes mellitus (901146176) Type 2 diabetes mellitus with diabetic polyneuropathy (E11.42) Active confirmed Vital Signs Blood pressure diastolic 80 mm Hg 12/04/2024 Height 5ft4in in 12/04/2024 Blood pressure systolic 120 mm Hg 12/04/2024 Weight 160 lbs 12/04/2024 BMI 27.46 kg/m2 12/04/2024 Encounters Encounter Location Date Provider Diagnosis [address] [address] 04/01/2024 Ludivina Villar Type 2 diabetes mellitus with diabetic polyneuropathy E11.42 ; Tinea pedis of both feet B35.3 ; Tinea unguium B35.1 ; Other hammer toe(s) (acquired), right foot M20.41 and Other hammer toe(s) (acquired), left foot M20.[address] [address] 06/24/2024 Ludivina Villar Tinea pedis of both feet B35.3 ; Other hammer toe(s) (acquired), left foot M20.42 ; Type 2 diabetes mellitus with diabetic polyneuropathy E11.42 ; Tinea unguium B35.1 ; Other hammer toe(s) (acquired), right foot M20.41 and Xerosis of skin L85.[address] [address] 09/18/2024 Ludivina Villar Tinea pedis of both feet B35.3 ; Other hammer toe(s) (acquired), left foot M20.42 ; Type 2 diabetes mellitus with diabetic polyneuropathy E11.42 ; Tinea unguium B35.1 and Other hammer toe(s) (acquired), right foot M20.41 [facility] [address] [address] 12/04/2024 Ludivina Villar Tinea pedis of both [...] Treatment Pending Test Test Name Order Date [id number] NAIL, 6 OR MORE 12/06/2021 [id number] SKIN LESIONS, OVER 4 09/07/19 [id number]-LGOF SKIN LESIONS, OVER 4 12/07/19 Next Appt Details Provider Name:Ludivina lechuga, 02/26/2025 09:15:00 AM, [address] [place] [address], [phone], Insurance Providers Payer Name Payer Address Payer Phone Subscriber Number Group Number Insured Name Patient Relationship to Insured Coverage Start Date Coverage End Date [facility] [employer] Claims [address] [place], [place] [id number] Sydney Treadwell Self - patient is the insured Medical (General) History Medical History History ICD Code Arthritis Back,Hip,and Knee pain CAD (Cholesterol) Cataracts Depression type II diabetes High blood pressure Macular degeneration Numbness Osteoporosis Mumps Chicken pox Surgical History Surgery Date(Month/Year) x2 06/1983,03/1986
== END 2025-02-22 17:52 | disposition home or self-care (01) ==
LOC: HO.MRI 17:51
PROVIDERS: PCP Internal Medicine; Visit Provider Psychiatry & Neurology Neurology
DX: G20.A2 Parkinson's disease without dyskinesia, with fluctuations (principal); G31.84 Mild cognitive impairment of uncertain or unknown etiology
CPT/HCPCS: 70551

== ENCOUNTER 2025-03-08 12:20 | Outpatient (AMB) | payer OTHER, SELFPAY ==
--- NOTE | 2025-03-08 12:28 | A.OFFVIS_ITS ---
Intake Visit Reasons: AFTER MRI OKAY PER [facility] Allergies Victoza Allergy (Intermediate, Uncoded 01/18/25 10:18) nausea and vomiting Codeine Adverse Reaction (Intermediate, Uncoded 01/18/25 10:18) nausea HPI Comments Details: 64 years old woman with mild cognitive impairment. MRI of brain revealed mild diffuse atrophy and minimal to mild microvascular ischemic changes. Serum B12 and folate and TSH were normal. There was mild reduction of overall facial e xpression and ambulation. No significant behavioral issues [facility] Medical History (Updated 03/08/25 @ 12:31 by Isabell Ni MD) Tremor Mild recurrent major depression B12 deficiency Jaime's disease Dyslipidemia Hypertension Diabetic polyneuropathy associated with type 2 diabetes mellitus nursing home (current) use of insulin Diabetes type 2, controlled Surgical History Hx of section Family History Father Raynaud's syndrome without gangrene Mother No problems noted. Daughter Breast cancer, Onset Age: 38 Social History Household Members: None Housing: Apartment Alcohol intake: never Patient Tobacco Use Status: Former Tobacco user Tobacco use type: Cigarette e-Cigarette/Vaping Use: Never Used Second Hand Smoke Exposure: No service: No Current occupational status: unemployed Cognitive needs: No Hearing needs: No Vision needs: No Review of Systems Narrative As per HPI Physical Exam Neuro Other: Mental Status: Alert and oriented to person, place, and time. Normal attention. Normal spontaneous speech, fluency, and comprehension. Cranial Nerves: CN II: Visual gonzalez full to confrontation, visual acuity intact. CN III, IV, : Pupils equal, round, reactive to light and accommodation. Extraocular movements are normal. CN V: Facial sensation is normal. CN VII: Facial movements symmetrical. CN VIII: Hearing intact to bedside conversation is normal. CN IX, X: Palate elevates symmetrically. CN XI: Shoulder shrug and head turn symmetrical. CN XII: Tongue midline without atrophy or fasciculations. Extrapyramidal: Full facial expressions and blinking. No rigidity. Movements are appropriate with no tremor or abnormality. Speech: Normal; no dysarthria or tremor. Results Reviewed Results Reviewed: Laboratory Tests 09/07/24 01/19/25 11:34 09:48 Vitamin B12 403 Folate 11.2 TSH 2.70 EXAMINATION: MR BRAIN WITHOUT CONTRAST CLINICAL INFORMATION: G 20.A2. Parkinson's disease without dyskinesia. COMPARISON: None available. TECHNIQUE: MRI of the brain was obtained using routine sequences without contrast. FINDINGS: No restricted diffusion. No signal abnormality within the substantia nigra. No acute intracranial hemorrhage, mass effect, midline shift, hydrocephalus or herniation. Bilateral multifocal punctate deep periventricular white matter hyperintense T2 FLAIR signal involving centrum semiovale and lemons radiata. Probable old lacunar infarct in the left insular/subinsular. Flow-void signal within the main cerebral vessels is normal. Jackson-white matter differentiation is normal. Posterior cranial fossa contents demonstrated no signal abnormality or mass effect. Normal position of the cerebellar tonsils. Sellar/suprasellar region demonstrated no signal abnormality or gross masses. No signal abnormality or volume loss in the hippocampi. Coarctation of the right occipital horn lateral ventricle. MR/MR head/brain wo con IMPRESSION: No acute brain abnormality. White matter disease likely related to small vessel occlusive disease. Assessment & Plan Assessment & Plan (1) Parkinson disease: Code(s): G20.A1 - Parkinson's disease without dyskinesia, without mention of fluctuations Category: Medical (2) MCI (mild cognitive impairment): Comment: MRI brain WO [place] [facility] [place]: Mild diff atrophy, mild MVD Code(s): G31.84 - Mild cognitive impairment of uncertain or unknown etiology Category: Medical Plan 64 years old woman with mild cognitive impairment. She was reassured and educated. Serum test for cerebral amyloid was requested. Otherwise she was advised to be physically and socially active and I would see her back in a year time. Orders: Orders ABeta 42/40 p-tau 217 Eval Today G31.84 - Mild cognitive impairment of uncertain or unknown etiology Coding Level of Care Code Est Pt Level 3 (44302) Diagnoses Parkinson disease G20.A1 MCI (mild cognitive impairment) G31.84
== END 2025-03-08 12:33 | disposition home or self-care (01) ==
LOC: HO.HSM 12:20
PROVIDERS: PCP Internal Medicine; Visit Provider Psychiatry & Neurology Neurology
DX: G20.A1 Parkinson's disease without dyskinesia, without mention of fluctuations (principal); G31.84 Mild cognitive impairment of uncertain or unknown etiology
CPT/HCPCS: 99213

== ENCOUNTER → 2025-03-08 12:20 | Outpatient (BNVA) | payer OTHER, SELFPAY | PROVIDERS: PCP Internal Medicine; Visit Provider Psychiatry & Neurology Neurology | DX: G31.84 Mild cognitive impairment of uncertain or unknown etiology (principal); G20.A1 Parkinson's disease without dyskinesia, without mention of fluctuations; Z87.891 Personal history of nicotine dependence | CPT/HCPCS: 99212 ==

== ENCOUNTER 2025-03-16 09:37 | Outpatient (REF) | payer OTHER, SELFPAY | END 2025-03-16 09:38 | disposition home or self-care (01) | LOC: HO.LNP 09:37 | PROVIDERS: PCP Internal Medicine; Visit Provider Advanced Practice Midwife | DX: Z01.419 Encounter for gynecological examination (general) (routine) without abnormal findings (principal); Z11.51 Encounter for screening for human papillomavirus (HPV) | CPT/HCPCS: 87626; 88175; 99397 ==

== ENCOUNTER 2025-03-16 09:37 | Outpatient (AMB) | payer OTHER, SELFPAY ==
--- NOTE | 2025-03-16 09:49 | MHC.OFFVIS ---
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 Finisher Brush concerns: none. Currently sexually active. Denies any vaginal dryness or irritation. STI testing offered; she accepts. Attempting to eat a healthy diet with calcium and vitamin D and stays active with exercise. Last pap smear; 2019, negative. Last mammogram; 2023. ColoGard is UTD. Denies any family history of breast, ovarian or colon cancer. 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 Daughter Breast cancer, Onset Age: 38 Social History Household Members: None Housing: Apartment Alcohol intake: never Patient Tobacco Use Status: Former Tobacco user Tobacco use type: Cigarette e-Cigarette/Vaping Use: Never Used Second Hand Smoke Exposure: No service: No Current occupational status: unemployed Cognitive needs: No Hearing needs: No Vision needs: No Female Reproductive History Menstrual Menopause type: natural Total pregnancies: 2 Full term: 2 Number of Living Children: 2 Date of last pap smear: 12/03/19 (neg pap and hpv) Date of Mammogram: 03/31/24 (Birad 1) Review of Systems Const All systems reviewed & are unremarkable except as noted in HPI and below Reports as per HPI Eyes Reports no additional complaints ENT Reports no additional complaints Card Reports no additional complaints Resp Reports no additional complaints GI Reports as per HPI and Reports no additional complaints Reports as per HPI Musc Reports no additional complaints Skin/Breast Reports as per HPI Neuro Reports no additional complaints Psych Reports no additional complaints Endo Reports no additional complaints Guy/Lymph Reports no additional complaints Aller/Immun Reports no additional complaints Physical Exam Vital Signs: Last Vital Signs BP 90/56 L 03/16/25 09:51 BMI result Body Mass Index 28.7 Const General: cooperative, healthy appearing, no acute distress, well developed and alert Orientation/consciousness: patient oriented x3 HEENT Head: Yes normal to inspection Eyes General: appearance normal, both eyes and all related structures Neck Neck: Yes normal visual inspection Thyroid: Thyroid normal Chest Chest palpation & inspection: normal inspection of the chest and other (no puckering, dimpling, peau de orange, retraction, discharge, masses) Breast/axilla inspection: normal inspection of the breasts Breast/axilla palpation: normal palpation of the breasts Resp Effort & Inspection: normal respiratory effort GI Inspection: Yes normal to inspection Palpation (GI): Soft to palpation Rectal Exam - Female: deferred General: Yes bladder normal to palpation External Female Exam: normal external appearance and normal appearance of the urethra Speculum Exam - Vagina: normal appearance of the vagina, normal palpation, normal vaginal discharge and vagina atrophic Speculum Exam - Cervix: normal appearance of the cervix, normal palpation and Other cervical findings present (Atrophic, bled slightly with Pap) Bimanual exam- vagina & uterus: normal bimanual exam, normal palpation, uterine size normal, bladder normal to palpation, normal palpation and non-tender Bimanual Exam- Adnexa, other: no masses Skin General skin exam: no rashes or lesions noted Rashes: no rashes Neuro General: patient oriented x3 Cognition (Neuro): normal cognition Extrem General: Yes normal to inspection Psych Attitude: cooperative Thought process: Normal thought process present Assessment & Plan Assessment & Plan (1) Encounter for well woman exam with routine gynecological exam: Code(s): Z01.419 - Encounter for gynecological examination (general) (routine) without abnormal findings Category: Medical Plan Discussed: Current recommendations for pap smears per ASCCP guidelines. Breast awareness, periodic self breast exams and yearly mammogram. Maintain a healthy lifestyle, well balanced diet including Calcium 1,200 mg and Vitamin D 600 IU daily, and routine exercise. Contact the office with any postmenopausal bleeding. Patient verbalizes understanding and agrees to the plan of care. She was given opportunity to ask questions and all questions were answered to the best of my ability. RTO in 1 year for annual portrait studio photographer exam. This note is constructed using voice recognition software. While every effort has been made to ensure accuracy, medical service representative errors may have been included. Orders: Orders HPV High risk Today Z01.419 - Encounter for gynecological examination (general) (routine) without abnormal findings Pap Smear Today Z01.419 - Encounter for gynecological examination (general) (routine) without abnormal findings Coding Level of Care Code Est Pt Prev Care >65y(38412) Diagnoses Encounter for well woman exam with routine gynecological exam Z01.419
[2025-03-16 09:51] VITALS: BP 90/56; BMI 28.7
== END 2025-03-16 10:38 | disposition home or self-care (01) ==
LOC: HO.HWS 09:37
PROVIDERS: PCP Internal Medicine; Visit Provider Advanced Practice Midwife
DX: Z01.419 Encounter for gynecological examination (general) (routine) without abnormal findings (principal)
CPT/HCPCS: 99397; 99459

== ENCOUNTER 2025-03-31 09:47 | Outpatient (AMB) | payer OTHER, SELFPAY ==
--- NOTE | 2025-03-31 09:49 | MHC.PC.OV ---
Vital Signs 03/31/25 10:04 Height 5 ft 3.4 in Weight 160 lb BMI 28.0 BP 112/60 Blood Pressure Location Rt brachial Position Sitting Pulse 99 Pulse Source Pulse Oximeter Temp 98.8 F Temp Source Oral Pulse Oximetry (%) 98 Oxygen Delivery Method Room Air Intake Visit Reasons: DM- A1C needed Intake Note: Patient here for an Annual Physical Exam Laryngologist Required: No Accompanied by: Self / Same As Patient Allergies Victoza Allergy (Intermediate, Uncoded 03/31/25 10:25) nausea and vomiting Codeine Adverse Reaction (Intermediate, Uncoded 03/31/25 10:25) nausea Medication List - Last Reconciled 03/31/25 by Orin Can MD aripiprazole 5 mg PO DAILY 90 days atomoxetine 40 mg PO QAM 90 days atorvastatin 20 mg PO DAILY 90 days blood sugar diagnostic As directed blood sugar diagnostic (FreeStyle Lite Strips) As directed 4 times a day blood sugar diagnostic (FreeStyle Lite Strips) Use 1 test strip once a day blood-glucose meter (FreeStyle Hulett Lite kit) As directed bupropion HCl XL 150 mg PO DAILY 90 days bupropion HCl XL 300 mg PO DAILY 90 days cholecalciferol (vitamin D3) 50 mcg PO DAILY 90 days dextroamphetamine-amphetamine 10 mg ER 1 cap PO QAM esomeprazole magnesium 20 mg PO DAILY ferrous sulfate 325 mg PO DAILY 90 days gabapentin 100 mg PO BEDTIME ibuprofen 800 mg PO Q8H PRN 30 days lancets As directed lisinopril 5 mg PO DAILY 90 days metformin ER 500 mg PO BID pen needle, diabetic (BD Ultra-Fine Nora Pen Needle) 1 ea subcut DAILY 90 days semaglutide (Ozempic) 0.5 mg (0.736 mL) subcut QWEEK 90 days Tobacco use date assessed: 03/31/25 Fall risk assessment: 1 Fall in past year Last assessed Fall Risk: 03/31/25 Dental Screening Dental Screen Date: 03/31/25 Did you have a dental visit in the last 12 months?: Yes Was dental information given to patient?: Patient has dentist HPI HPI Comments History of Present Illness Details The patient is a 64 year old individual presenting for follow-up of chronic conditions and a new cough. For approximately one week, the patient has been experiencing a cough productive of green mucus in the mornings and loss of voice. The patient denies any associated chest pain, shortness of breath, or wheezing. The cough has improved on its own. No fever. The patient continues to experience occasional vomiting, which is triggered by physical exertion such as gardening and housework, particularly with bending over. A prior barium swallow study revealed a small hiatal hernia and reflux. Regarding chronic conditions, the patient's A1c today was 5.7%, and blood pressure is well-controlled. The patient is followed by endocrinology for osteoporosis and has an upcoming DEXA scan and mammogram. The patient was advised by endocrinology to stop taking calcium supplements after a test showed high calcium levels, pending further evaluation. She has mild major depression with anxiety follow by Psychiatry. Current medications include Abilify, atomoxetine, atorvastatin, bupropion, vitamin D, esomeprazole, Lexapro, an iron supplement, gabapentin, lisinopril, metformin, and Ozempic, with ibuprofen as needed. The patient has known allergies to Victoza and codeine, which cause nausea. [facility] Medical History (Updated 03/31/25 @ 11:05 by Orin Can MD) Tremor Mild recurrent major depression B12 deficiency Jaime's disease Dyslipidemia Hypertension Diabetic polyneuropathy associated with type 2 diabetes mellitus detention (current) use of insulin Diabetes type 2, controlled Surgical History Hx of section Family History Father Raynaud's syndrome without gangrene Mother No problems noted. Daughter Breast cancer, Onset Age: 38 Social History Household Members: None Housing: Apartment Alcohol intake: never Patient Tobacco Use Status: Former Tobacco user Tobacco use type: Cigarette e-Cigarette/Vaping Use: Never Used Second Hand Smoke Exposure: No service: No Current occupational status: unemployed Cognitive needs: No Hearing needs: No Vision needs: Yes (glasses) Questionnaire PHQ-9 Over the last 2 weeks, how often have you been bothered by any of the following problems? 1. Little interest or pleasure in doing things: not at all 2. Feeling down, depressed, or hopeless: not at all 3. Trouble falling or staying asleep, or sleeping too much: not at all 4. Feeling tired or having little energy: not at all 5. Poor appetite or overeating: not at all 6. Feeling bad about yourself - or that you are a failure or have let yourself or your family down: not at all 7. Trouble concentrating on things, such as reading the newspaper or watching television: not at all 8. Moving or speaking so slowly that other people could have noticed. Or the opposite - being so fidgety or restless that you have been moving around a lot more than usual: not at all 9. Thoughts that you would be better off or of hurting yourself in some way: not at all Total score: 0 Depression Screening Interpretation: Negative Depression Screening Done: Yes 38280 - PHQ-9 Billing: Yes Source: Developed by Drs. Antwan Hunt, Kevin Petit and colleagues, with an educational romulo from [employer]. Thrive Questionnaire Date Thrive assessed: 03/31/25 I am a: Patient What is your living situation today?: I have a steady place to live THRIVE Score: 0 KYA-7 AMB Questionnaire KYA-7 Date KYA - 7 assessed: 03/31/25 Feeling nervous, anxious, or on edge: 0 = Not at all Not being able to stop or control worryin = Not at all Worrying too much about different things: 0 = Not at all Trouble relaxin = Not at all Being so restless that it is hard to sit still: 0 = Not at all Becoming easily annoyed or irritable: 0 = Not at all Feeling afraid as if something awful might happen: 0 = Not at all Total KYA-7 score (0-4 normal; 5-9 mild; 10-14 moderate; 15-21 severe): 0 Source: Developed by Drs. Antwan Hunt, Melissa Xiong, Kevin Gutierrez and colleagues, with an educational romulo from [employer]. KYA-7 Assessment Billing KYA-7 Assessment Tool: KYA-7 Assessment 97658 Review of Systems Const All systems reviewed & are unremarkable except as noted in HPI and below Card Denies chest pain at rest, Denies chest pain with activity, Denies edema, Denies irregular heart rhythm, Denies claudication, Denies dyspnea, Denies dyspnea on exertion, Denies orthopnea, Denies paroxysmal nocturnal dyspnea and Denies slow heart rate Resp Denies cough, Denies dyspnea and Denies dyspnea on exertion Physical exam (Primary Care) Vital Signs: Last Vital Signs Temp 98.8 F 03/31/25 10:04 Pulse 99 03/31/25 10:04 BP 112/60 03/31/25 10:04 Pulse Ox 98 03/31/25 10:04 Oxygen Delivery Method Room Air 03/31/25 10:04 BMI result Body Mass Index 28.0 Tobacco/Smoking Status: Tobacco use Status Tobacco use date assessed 03/31/25 03/31/25 09:51 Patient Tobacco Use Status Former Tobacco user 03/31/25 09:51 Tobacco use type Cigarette 03/31/25 09:51 e-Cigarette/Vaping Use Never Used 03/31/25 09:51 PHQ-9: PHQ-9 Score PHQ-9: Total score 0 03/31/25 10:29 Depression Screening Interpretation: Negative Thrive Assessment: Date of Thrive Assessment Date Thrive assessed 03/31/25 03/31/25 09:51 Resp Effort & Inspection: normal respiratory effort Auscultation: clear to auscultation bilaterally Cardio Jugular venous distension: no JVD Rate: regular rate Rhythm: regular rhythm Heart sounds: S1 normal heart sound present and S2 normal heart sound present Extrem General: Yes full ROM Office Procedures Flu Questionnaire Does the patient have a severe egg allergy?: No Does the patient have severe life threatening allergies?: No Does the patient have a fever or illness today?: No Has the patient ever had Guillain-Marietta Syndrome?: No Has the patient ever had any past reaction to a flu shot?: No Results AMB Hemoglobin A1c AMB Hemoglobin A1c 5.7 % Last Edit by Desirae Pang CMA on 03/31/25 10:41 Immunizations Fluarix [id number] (PF) 45 mcg (15 mcg x 3)/0.5 mL IM syringe Performing Provider: Orin Can MD [facility] Documented (not given) by: Desirae Pang CMA on 03/31/25 09:52 Reason Not Given: Received Previously Coding Level of Care Code Complex visit Add On G2211 Diagnoses URI (upper respiratory infection) J06.9 Diabetes type 2, controlled E11.9 Age-related osteoporosis without current pathological fracture M81.0 Osteoporosis type: age-related Presence of current pathological fracture: without current pathological fracture Essential hypertension I10 Hypertension type: essential hypertension Dyslipidemia E78.5 Mild recurrent major depression F33.0 Additional Codes PHQ-9 - 79657 - PHQ-9 Billing: Yes ([id number]) KYA-7 Assessment Billing - KYA-7 Assessment Tool: KYA-7 Assessment [id number] ([id number]) Time Spent (min) 23 Assessment & Plan Assessment & Plan (1) URI (upper respiratory infection): Code(s): J06.9 - Acute upper respiratory infection, unspecified Category: Medical (2) Diabetes type 2, controlled: Code(s): E11.9 - Type 2 diabetes mellitus without complications Category: Medical (3) Osteoporosis: Comment: DEXA 03/2023: AP Spine -2.6, Left femur neck -2.0, Left femur total -1.8 Medication History: Prolia (denosumab) 60mg qmth - Started 05/2023 - Second dose: 12/2023 - Third dose: 07/2023 Code(s): M81.0 - Age-related osteoporosis without current pathological fracture Category: Medical Qualifiers: Osteoporosis type: age-related Presence of current pathological fracture: without current pathological fracture Qualified Code(s): M81.0 - Age-related osteoporosis without current pathological fracture (4) Hypertension: Code(s): I10 - Essential (primary) hypertension Category: Medical Qualifiers: Hypertension type: essential hypertension Qualified Code(s): I10 - Essential (primary) hypertension (5) Dyslipidemia: Code(s): E78.5 - Hyperlipidemia, unspecified Category: Medical (6) Mild recurrent major depression: Code(s): F33.0 - Major depressive disorder, recurrent, mild Category: Medical Plan Plan 1. Acute Upper Respiratory Infection The patient's symptoms of cough with green sputum and dysphonia are likely due to a viral infection, which appears to be resolving. The plan is to monitor symptoms, and if the cough persists for another two weeks, the patient will be instructed to send a portal message to arrange for a chest x-ray. 2. Nausea And Vomiting /GERD The patient's vomiting, triggered by exertion and bending, is likely associated with gastroesophageal reflux and a hiatal hernia. A prescription for famotidine (Pepcid) 40 mg will be sent to the pharmacy for the patient to take as needed before engaging in activities that provoke symptoms. 3. Diabetes The patient's prediabetes is stable, with a recent A1c of 5.7%. The plan is to continue the current regimen of metformin and Ozempic. 4. Hypertension Blood pressure is well-controlled. The patient will continue the current dose of lisinopril 5 mg. 5. Osteoporosis The patient is under the care of an wetland scientist for this condition and was advised to stop taking calcium due to high levels found on a recent test. The patient has upcoming appointments for a DEXA scan, a mammogram, and a follow-up with endocrinology. The plan is for the patient to proceed with the scheduled tests and follow up with the specialist. 6. Hyperlipidemia Continue statins. LDL goal is less than 70. 7. Mild major depression Follow-up with psychiatry. Continue bupropion. Orders: Orders Microalbumin, Random (w Creat) 5 Months R80.9 - Proteinuria, unspecified Vitamin B12 and Folate 5 Months E53.8 - Deficiency of other specified B group vitamins IRON PROFILE 5 Months D64.9 - Anemia, unspecified Influenza [id number] Immunization Today Z23 - Encounter for immunization Lipid Panel 5 Months E78.5 - Hyperlipidemia, unspecified Vitamin D 25-OH Total 5 Months E55.9 - Vitamin D deficiency, unspecified Complete Blood Count Auto Diff 5 Months D64.9 - Anemia, unspecified Comprehensive Laie. 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
[2025-03-31 10:04] VITALS: BP 112/60; PULSE 99; TEMP 37.1; O2SAT 98; BMI 28.0
== END 2025-03-31 10:40 | disposition home or self-care (01) ==
LOC: HO.HMCH 09:48
PROVIDERS: PCP Internal Medicine; Visit Provider Internal Medicine
DX: J06.9 Acute upper respiratory infection, unspecified (principal); E11.9 Type 2 diabetes mellitus without complications; M81.0 Age-related osteoporosis without current pathological fracture; I10 Essential (primary) hypertension; E78.5 Hyperlipidemia, unspecified; F33.0 Major depressive disorder, recurrent, mild; Z13.9 Encounter for screening, unspecified; Z23 Encounter for immunization

== ENCOUNTER → 2025-03-31 09:47 | Outpatient (BNVA) | payer OTHER, SELFPAY | PROVIDERS: PCP Internal Medicine; Visit Provider Internal Medicine | DX: Z28.89 Immunization not carried out for other reason (principal); M81.0 Age-related osteoporosis without current pathological fracture; J06.9 Acute upper respiratory infection, unspecified; E11.9 Type 2 diabetes mellitus without complications; I10 Essential (primary) hypertension; E78.5 Hyperlipidemia, unspecified; F33.0 Major depressive disorder, recurrent, mild | CPT/HCPCS: 83036; 90471; 96127; 99212 ==